=== PATIENT | female | born 1970 | race Caucasian/White ===

== ENCOUNTER → 2021-05-14 14:35 | Outpatient (BNVA) | payer OTHER, SELFPAY | PROVIDERS: PCP Internal Medicine; Referring Provider Internal Medicine; Visit Provider Physician Assistant ==

== ENCOUNTER 2025-07-25 08:15 | Outpatient (AMB) | payer OTHER, SELFPAY ==
--- OUTSIDE RECORDS SUMMARY | 2024-04-05 04:40 | XMS_ITS ---
Author Organization [facility] Address [address] [place] [address] Care Team Providers Care Lehr Operator Name Role Phone ANIL POSEY Primary Care Provider Kathryn Do Unavailable [phone] Allergies Allergen (clinical drug ingredient) Drug/Non Drug [...] 1 ORAL daily; Duration: -3 10/30/2013 Active Miqrvzjmpl-JBSV-Ticlyxpd 50-325-40 MG TAKE 2 TABLETS BY MOUTH [...] Encounters Encounter Location Date Provider Diagnosis Total [address] [facility] [address] [place] [address] 04/05/2024 Kathryn Galo Plan Of Treatment No Information Progress Notes * MARIANNA SNELLDOB:1970 (54 yo F)Acc No.[id number]:04/05/2024 PROGRESS NOTES Patient: MARIANNA ELLIOTT Appointment Provider: Amy Galo M.D. :1970 A ge:53 Y S ex:Female Date:04/05/2024 Address:[address] [place] [address] [address], [facility] Pcp:ANIL POSEY Subjective: * Chief Complaints: * 1 . Annual (YELLOW FORM DONE). * Medical History: E xcessive and frequent menstruation with regular cycle, Gastro-esophageal reflux disease without esophagitis, Essential (primary) hypertension, Migraine, unspecified, not intractable, without status migrainosus, Menopausal and female climacteric states, Leiomyoma of uterus, unspecified, Functional urinary incontinence, Morbid (severe) obesity due to excess calories. 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 S [...] status: . Natural support system: yes. Occupation: [employer]. Sexually active: yes, monogamous relationship. Travel outside of the [place]: no. * Medications: T aking Spironolactone [...] 50MG 60 1 ORAL daily , Taking Mmfqelttrt-YDCW-Optutwcn 50-325-40 MG Tablet TAKE 2 TABLETS BY MOUTH 3 TIMES A DAY NEEDED DO NOT EXCEED 6 TABS DAILY Oral * Allergies: L atex: Allergy, Penicillin: Allergy. Objective: * Vitals: Assessment: Plan: * Treatment: * Images: Billing Information: * Visit Code: * Procedure Codes: * Electronic signature of Gen Galo MD on 07/25/2025 at 08:19 AM EDT Sign off status: Pending * Appointment Provider: Amy Galo M.D. Date: 0 04/05/2024 Generated for Derik tran/Juan David/Antony on: 1 08:19 AM EDT
--- NOTE | 2025-07-25 07:55 | A.OFFPC_ITS ---
Vital Signs 07/25/25 08:17 Height 5 ft 6.5 in Weight 240 lb 8 oz BMI 38.2 BP 102/74 Blood Pressure Location Lt brachial Position Sitting Respiration 16 Pulse 74 Pulse Source Pulse Oximeter Temp 98.1 F Temp Source Oral Pulse Oximetry (%) 94 Oxygen Delivery Method Room Air Intake Visit Reasons: reestablish care, discuss clearance letter Geography Instructor Required: No Accompanied by: Self / Same As Patient Allergies ciprofloxacin (From Cipro) Allergy (Intermediate, Verified 07/25/25 08:18) rash/itching apple Allergy (Mild, Verified 07/25/25 07:55) unknown latex Allergy (Mild, Verified 07/25/25 07:55) unknown nut - unspecified Allergy (Mild, Verified 07/25/25 07:55) unknown orange Allergy (Mild, Verified 07/25/25 07:55) unknown peach Allergy (Mild, Verified 07/25/25 07:55) unknown Penicillins Allergy (Mild, Verified 07/25/25 07:55) unknown pineapple Allergy (Mild, Verified 07/25/25 07:55) unknown Seasonal Allergies Allergy (Mild, Verified 07/25/25 07:55) unknown adhesive tape Adverse Reaction (Intermediate, Verified 07/25/25 07:55) Rash Medication List - Last Reconciled 07/25/25 by Annamarie Feliciano MD albuterol sulfate 90 mcg/actuation (Ventolin HFA) 2 puffs inhalation Q6H PRN bupropion HCl XL (Wellbutrin XL) 150 mg PO QAM CPAP (CPAP Machine/Device) As directed epinephrine (EpiPen) 0.3 mg IM Q10M PRN ferrous gluconate 324 mg PO DAILY hydrochlorothiazide 25 mg PO DAILY lisinopril 10 mg PO DAILY magnesium glycinate mg PO mecobalamin (vitamin B12) 1,000 mcg PO DAILY metoprolol succinate ER 25 mg PO DAILY omeprazole 40 mg PO BID sertraline 200 mg PO DAILY tirzepatide (Mounjaro) 2.5 mg subcut QWEEK trazodone 150 mg PO BEDTIME PRN Tobacco use date assessed: 07/25/25 Dental Screening Dental Screen Date: 07/25/25 Did you have a dental visit in the last 12 months?: Yes Did you have a dental problem in the last 6 months where you did not have access to dental care?: No Was dental information given to patient?: Patient has dentist HPI HPI Comments History of Present Illness Details History of Present Illness The patient is a 54-year-old female presenting to [facility] for a follow- up appointment for Essential Hypertension, ADHD, anxiety, and associated conditions. She experiences work-related stress leading to anxiety. She will be seeing psychiatrist who wants to start vyvanse but wants to ensure her BP is good for her to start medication. The patient?s sleep disturbance has improved with increased Trazodone dosage. She uses magnesium glycinate for leg cramps with improvement noted and reports stress-induced headaches, medicating with an injectable migraine treatment. Family circumstances include a recent marital change and a pending vacation in September have been discussed. Sleep apnea- has not been using CPAP Obesity- has been taking mounjaro, enrolled with a weight management provider. Impaired fasting glucose-due for repeat A1C Migraines- sees specialist in [place], on emgality. B12 deficiency- taking B12 supplements daily GERD-stable on PPI Review of Systems - Cardiovascular: no chest pain - Respiratory: Denies increased need for albuterol. - Neurological: Reports headaches - Musculoskeletal: Reports leg cramps, i mproved with magnesium. - Psychiatric: Reports anxiety, associat ed with work stress. - Sleep: Reports improved sleep with inc reased Trazodone. - General: Reports stress due to work de mands; denies additional symptoms. Physical Exam - Vital Signs- Blood pressure 110/78 mmH g. - Cardiac- Normal heart sounds. Soft mur mur across precordium - Respiratory- Lungs clear on auscultati on. - Gastrointestinal- Normal bowel sounds; no tenderness observed. - Extremities- No swelling in lower extr emities. Assessment and Plan 1. Essential Hypertension Anticipate possible blood pressure elevation due to Vyvanse; monitor home BP readings. Consider dosage adjustment depending on upcoming results and lifestyle influences. 2. ADHD Start Vyvanse as per psychiatrist's plan, ensuring collaboration for seamless adjustment between mental health management and general physical health monitoring. 3. Stress-Induced Anxiety Address work-related stress and personal life adjustments. Evaluate therapy or intervention if the situation exacerbates, ensuring coordination with mental health care providers. 4. Sleep Disturbances and Apnea Reiterate the need for ongoing sleep clinic evaluation, given potential benefits from weight loss. Track sleep patterns and apnea symptoms. Pt will reestablish with sleep provider. Will confirm if [facility] is in network. If yes will refer. 5. Leg Cramps Maintain magnesium supplementation, as it has provided relief. Check magnesium 6. Headaches Review if stress alleviation is ineffective, untreated BLANCA can also be a factor; maintain contact with healthcare providers regarding symptomatic treatment evaluation. Discussion Notes We discussed the daily living and personal impact of Essential Hypertension and ADHD in depth, particularly focusing on how the introduction of Vyvanse could impact her cardiovascular health. The patient understands the need for meticulous blood pressure monitoring at home and the rationale for maintaining current medications while observing changes. We reviewed the implications of stress and reviewed potential coping mechanisms for stress-induced anxiety, especially given the workplace challenges she faces. In addressing her sleep issues, I highlighted the pending evaluation at a sleep clinic to accommodate any progress via weight loss in managing obstructive sleep apnea. Patient Instructions - Monitor your blood pressure at home re niravrly. - Manage stress with recommended strateg ies - Get in touch with the sleep clinic to proceed with your evaluation. - Keep up with magnesium supplementation if your leg cramps are improving. - Check in with your neurologist re head aches - Drink at least 64 ounces of water each day. - Use your patient portal to log any slim nges in your health. - Wear a mask when traveling to protect yourself from illness. - Remember to take breaks as much as pos sible to reduce stress. [facility] Medical History (Updated 07/25/25 @ 09:32 by Annamarie Feliciano MD) B12 deficiency anemia RUQ abdominal pain Leg cramps Anemia GERD (gastroesophageal reflux disease) Migraines Depression ADHD Impaired fasting glucose Obstructive sleep apnea detention (current) use of anticoagulants Pulmonary embolism DVT (deep venous thrombosis) Surgical History (Updated 07/24/25 @ 09:10 by Annamarie Feliciano MD) H/O cystoscopy H/O bilateral salpingectomy H/O total hysterectomy Hx of colonoscopy Family History Mother HTN (hypertension) Diabetes Father HTN (hypertension) Diabetes Social History (Updated 05/15/21 @ 13:27 by Zenobia Agee PA-C) Housing: House Patient Tobacco Use Status: Never used Tobacco e-Cigarette/Vaping Use: Never Used service: No Current occupational status: employed Current occupation: [employer] Medical Records Questionnaire AUDIT C Alcohol Use Questionnaire (AUDIT-C) 1. How often do you have a drink containing alcohol?: Never 3. How often do you have six or more drinks on one occasion?: Never Total Score: 0 Physical exam (Primary Care) Vital Signs: Last Vital Signs Temp 98.1 F 07/25/25 08:17 Pulse 74 07/25/25 08:17 Resp 16 07/25/25 08:17 BP 102/74 07/25/25 08:17 Pulse Ox 94 07/25/25 08:17 Oxygen Delivery Method Room Air 07/25/25 08:17 BMI result Body Mass Index 38.2 Tobacco/Smoking Status: Tobacco use Status Tobacco use date assessed 07/25/25 07/25/25 07:55 Patient Tobacco Use Status Never used Tobacco 07/25/25 07:55 e-Cigarette/Vaping Use Never Used 07/25/25 08:30 Coding Level of Care Code Est Pt Level 4 (13802) Complex EM visit Add On G2211 Diagnoses HTN (hypertension) I10 Impaired fasting glucose R73.01 Anemia D64.9 Migraines G43.909 Obstructive sleep apnea G47.33 Attention deficit hyperactivity disorder (ADHD), unspecified ADHD type F90.9 Attention deficit-hyperactivity disorder type: unspecified Depression F32.A Depression Type: major depressive disorder Major depression episode severity: unspecified Major depression recurrence: unspecified whether recurrent GERD (gastroesophageal reflux disease) K21.9 B12 deficiency anemia D51.9 Assessment & Plan Assessment & Plan (1) HTN (hypertension): Code(s): I10 - Essential (primary) hypertension Category: Medical (2) Impaired fasting glucose: Code(s): R73.01 - Impaired fasting glucose Category: Medical (3) Anemia: Code(s): D64.9 - Anemia, unspecified Category: Medical (4) Migraines: Code(s): G43.909 - Migraine, unspecified, not intractable, without status migrainosus Category: Medical (5) Anemia: Code(s): D64.9 - Anemia, unspecified Category: Medical (6) Obstructive sleep apnea: Code(s): G47.33 - Obstructive sleep apnea (adult) (pediatric) Category: Medical (7) ADHD: Code(s): F90.9 - Attention-deficit hyperactivity disorder, unspecified type Category: Medical Qualifiers: Attention deficit-hyperactivity disorder type: unspecified Qualified Code(s): F90.9 - Attention-deficit hyperactivity disorder, unspecified type (8) Depression: Code(s): F32.A - Depression, unspecified Category: Medical Qualifiers: Depression Type: major depressive disorder Major depression episode severity: unspecified Major depression recurrence: unspecified whether recurrent (9) GERD (gastroesophageal reflux disease): Code(s): K21.9 - Gastro-esophageal reflux disease without esophagitis Category: Medical (10) B12 deficiency anemia: Code(s): D51.9 - Vitamin B12 deficiency anemia, unspecified Category: Medical Plan We will monitor her hypertension closely with Vyvanse initiation, ensuring potential adjustments in response to lifestyle changes influenced by stress and weight loss programs. Vyvanse management will continue under psychiatric care, integrating results with our treatment strategy, and anxiety will be continually evaluated as work conditions and personal circumstances evolve. Sleep disturbances will be revisited once a sleep clinic evaluation is complete, potentially offering advancements parallel to weight loss. Magnesium glycinate seems beneficial for muscle cramps, and we'll ensure continued hydration guidance aligns with her dietary constraints. Orders: Orders Comprehensive Met. Panel Today I10 - Essential (primary) hypertension, R73.01 - Impaired fasting glucose Hemoglobin A1c Today I10 - Essential (primary) hypertension, R73.01 - Impaired fasting glucose IRON PROFILE Today D64.9 - Anemia, unspecified Complete Blood Count Auto Diff Today D64.9 - Anemia, unspecified Microalbumin, Random (w Creat) Today I10 - Essential (primary) hypertension, R73.01 - Impaired fasting glucose Vitamin B12 Today I10 - Essential (primary) hypertension, R73.01 - Impaired fasting glucose Magnesium Today D64.9 - Anemia, unspecified, K21.9 - Gastro-esophageal reflux disease without esophagitis, R25.2 - Cramp and spasm, R73.01 - Impaired fasting glucose
[2025-07-25 08:17] VITALS: BP 102/74; PULSE 74; RESP 16; TEMP 36.7; O2SAT 94; BMI 38.2
--- OUTSIDE RECORDS SUMMARY | 2025-07-25 08:19 | XMS_ITS | Patient Health Record ---
Author Organization [employer] [facility] Address [address] [place] [address] Care Team Providers Care University Demonstrator Name Role Phone ANIL POSEY Primary Care Provider Kathryn Do Unavailable [phone] Allergies Allergen (clinical drug ingredient) Drug/Non Drug Allergy documented on EMR Reaction Allergy Type Onset Date Status Latex Latex Unknown Allergy Active Penicillin Unknown Drug Allergy Active Reason For Referral No Information Medications Medication SIG (Take, Route, Frequency, Duration) Notes Start Date End Date Status Metoprolol Tartrate 25MG 1 ORAL daily; Duration: -3 10/30/2013 Active Omeprazole 40MG 1 ORAL twice a day 10/30/2013 Active hydroCHLOROthiazide 25mg 1 ORAL daily; Duration: -3 10/30/2013 Active Vitamin B12 1000 MCG 1 tablet Orally Onc e a day Active metFORMIN HCl 500 MG 1 tablet with a angel l Orally twice a day Active Sertraline HCl 50 MG 1 tablet Orally Onc e a day; Duration: 30 day(s) Active Vitamin D Active Flax Seed Oil 1000 MG as directed Orally Active Cetirizine HCl 10 MG TAKE 1 TABLET BY MOUTH EVERY DAY Oral; Duration: 30 Active Spironolactone 25 MG 1 tablet Orally; Duration: 30 day(s) Active Topiramate 50MG 1 ORAL daily; Duration: -3 10/30/2013 Active traZODone HCl 50 MG 1 tablet at bedtime as needed Orally Once a day; Duration: 30 day(s) Active Fokuamclbl-THFP-Uvylmaen 50-325-40 MG TAKE 2 TABLETS BY MOUTH 3 TIMES A DAY NEEDED DO NOT EXCEED 6 TABS DAILY Oral; Duration: 4 Active Social History Sexual History Question Answer Notes Had sex in the past 12 months (vaginal, oral, or anal)? Yes with Men only Use protection? Yes How often? All of the time Have you ever had a Sexually transmitted disease ? No Problems Problem Type SNOMED Code ICD Code Onset Dates Problem Status W/U Status Risk Notes Problem Excessive and frequent menstruation (930354485) Excessive and frequent menstruation with regular cycle (N92.0) Active confirmed Problem Urinary incontinence (770561557) Unspecified urinary incontinence (R32) Active confirmed Problem Dysuria (60080662) Dysuria (R30.0) Active confirmed Problem Morbid obesity (disorder) (257583602) Morbid (severe) obesity due to excess calories (E66.01) Active confirmed Problem Functional urinary incontinence (769760736) Functional urinary incontinence (R39.81) Active confirmed Problem Menopause (536889688) Menopausal and female climacteric states (N95.1) Active confirmed Problem Migraine (disorder) (08127951) Migraine, unspecified without mention of intractable migraine without mention of status migrainosus (346.90) Active confirmed Major Problem Benign essential hypertension (7028783) Essential hypertension, benign (401.1) Active confirmed Major Problem Esophageal reflux (298217301) Esophageal reflux (530.81) Active confirmed Major Problem Excessive and frequent menstruation (163420272) Excessive or frequent menstruation (626.2) Active confirmed Diag Problem Gynecological examination normal (313499085457463) Routine gynecological examination (V72.31) Active confirmed Problem Contraception care education (995308770) Other general counseling and advice for contraceptive management (V25.09) Active confirmed Diag Problem Insertion of intrauterine contraceptive device (61661164) Insertion of intrauterine contraceptive device (V25.1) Active confirmed Major Plan Of Treatment Pending Test Test Name Order Date Test, Urine 10/30/2020 Urinalysis 10/30/2020 Urinalysis 12/23/2020 Urinalysis 12/18/2021 MM Digital Mammo Screening 12/22/2022 MM Digital Mammo Screening 12/18/2021 MM Digital Mammo Screening 10/30/2020 PELVIC ULTRASOUND W/TRANSVAGINAL 021 PELVIC ULTRASOUND W/TRANSVAGINAL 021 Insurance Providers Payer Name Payer Address Payer Phone Subscriber Number Group Number Insured Name Patient Relationship to Insured Coverage Start Date Coverage End Date [facility] [address] [facility] [place] [id number] MARIANNA SNELL Self - patient is the insured Medications Administered Medication Instructions Date of Administration Dosage Notes DEPO PROVERA 03/19/2021 150 mg Medroxyprogesterone 12/23/2020 150 mg Medical (General) History Medical History History ICD Code Excessive and frequent menstruation with regular cycle N92.0 Gastro-esophageal reflux disease without esophagitis K21.9 Essential (primary) hypertension I10 Migraine, unspecified, not intractable, without status migrainosus G43.909 Menopausal and female climacteric states N95.1 Leiomyoma of uterus, unspecified D25.9 Functional urinary incontinence R39.81 Morbid (severe) obesity due to excess ca lories E66.01 Surgical History Surgery Date(Month/Year) TAB RAMYA 02/17/21 Hospitalization History Reason Date(Month/Year) See Surgical Hx
--- OUTSIDE RECORDS SUMMARY | 2025-07-25 08:19 | XMS_ITS | Patient Health Record ---
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 Role Phone Dr Enoc Primary Care Provider CAMILO Navarrete Unavailable [phone] Allergies Allergen (clinical drug ingredient) Drug/Non Drug Allergy documented on EMR Reaction Allergy Type Onset Date Status ciprofloxacin Ciprofloxacin rash Drug Allergy Active Latex Latex rash Allergy Active Penicillin rash Drug Allergy Active Reason For Referral No Information Medications Medication SIG (Take, Route, Frequency, Duration) Notes Start Date End Date Status Omeprazole 40 MG Oral; Duration: 90 Days Active Mounjaro 2.5 MG/0.5ML Inject 2.5mg Subcutaneous once weekly; Duration: 30 days 07/03/2025 Active traZODone HCl 150 MG TAKE 1 TABLET BY MO [facility] EVERYDAY AT BEDTIME Oral; Duration: 90 Days Active buPROPion HCl ER (XL) 150 MG TAKE 1 TABL ET BY MOUTH EVERY DAY Oral; Duration: 30 Days Active Ebqemgbpar-JSSE-Elmhvlbo 50-325-40 MG TAKE 1 TABLET BY MOUTH EVERY 4 HOURS NEEDED FOR PAIN Oral; Duration: 3 Days Active Ferrous Gluconate 324 (38 Fe ) MG TAKE 1 TABLET BY MOUTH EVERY DAY Oral; Duration: 30 Days Active Fluticasone Propionate 50 MCG/ACT SPRAY 2 SPRAYS INTO EACH NOSTRIL EVERY DAY Nasal; Duration: 90 Days Active Sertraline HCl 100 MG TAKE 2 TABLETS BY MOUTH EVERY DAY Oral; Duration: 90 Days Active Lisinopril 10 MG Oral; Duration: 90 Days Active Emgality 120 MG/ML Subcutaneous; Duration: 90 Days Active Metoprolol Succinate ER 25 MG Oral; Dura tion: 90 Days Active hydroCHLOROthiazide 25 MG Oral; Duration : 90 Days Active Problems Problem Type SNOMED Code ICD Code Onset Dates Problem Status W/U Status Risk Notes Problem Essential hypertensi on (21733645) Essential hypertension (I10) Active confirmed Problem Morbid obesity (343221376) Morbid obesity (E66.01) Active confirmed Problem Body mass index 40+ - morbidly obese (619600731) BMI 40.0-44.9, adult (Z68.41) Active confirmed Problem hypercholesterolemia (disorder) (40658853) Hypercholesteremia (E78.00) Active confirmed Problem Mixed anxiety and depressive disorder (470514757) Depression with anxiety (F41.8) Active confirmed Problem Hemoglobin A1c above reference range (564446779) Elevated hemoglobin A1c (R73.09) Active confirmed Problem Obstructive sleep apnea syndrome (79817374) BLANCA on CPAP (G47.33) Active confirmed Problem Episodic migraine (288573506737641) Episodic migraine (G43.909) Active confirmed Vital Signs Heart Rate 74 /min 07/03/2025 Oximetry 97 % 07/03/2025 Blood pressure diastolic 86 mm Hg 07/03/2025 Height 64 in 07/03/2025 Blood pressure systolic 138 mm Hg 07/03/2025 Weight 245.5 lbs 07/03/2025 BMI 42.14 kg/m2 07/03/2025 Encounters Encounter Location Date Provider Diagnosis [facility] [address] [facility] [address] [place] [address] 07/03/2025 CAMILO BRANNON Morbid obesity E66.0 1 ; BMI 40.0-44.9, adult Z68.41 ; Elevated hemoglobin A1c R73.09 ; Essential hypertension I10 ; Hypercholesteremia E78.00 ; BLANCA on CPAP G47.33 ; Episodic migraine G43.909 ; History of gastroesophageal reflux (GERD) Z87.19 ; Depression with anxiety F41.8 and Nutritional counseling Z71.3 [facility] [address] [facility] [address] [place] [address] 07/03/2025 CAMILO BRANNON Elevated hemoglobin A1c R73.09 and BLANCA on CPAP G47.33 Assessments Encounter Date Diagnosis (ICD Code) Assessment Notes Treatment Notes Treatment Clinical Notes Section Notes 07/03/2025 Morbid obesity (ICD-10 - E66.01) Ruth is a 54-year-old female with a PMH of HTN, HLD, A1c 6.4%, BLANCA requiring CPAP, migraines, GERD, anxiety/depression that presents for weight management consult.Patient was reassured and welcomed to the practice. Discussed [facility] holistic and medical approach to weight loss with emphasis on lifestyle modification. Patient is educated that a healthy lifestyle aids in combating obesity as well as reducing the risk of developing obesity-related medical complications including but not limited to diabetes and cardiovascular disease. Detailed education provided about taking steps to initiate sustainable lifestyle changes including incorporating regular physical activity, making healthy diet choices, and prioritizing mental health. Information provided about literature including The Food Rules by Ezequiel España and Eat Fat Get Lean by Dr Kelvin Taylor. Handouts including lifestyle checklist, protein content of food, low calorie snacks, and cholesterol information sheet provided. Diagnostic testing/ SECA scale offered. Discussed the importance of regular SECA scale measurements to ensure healthy weight loss. 07/03/2025: Weight: 245.5, BMI: 42. Reviewed SECA/goals for implementing sustainable lifestyle changes. Patient is encouraged to increase physical activity, goal 8-10k steps/day. Also discussed the importance of strength training with proper safety/body mechanics for maintenance of muscle mass/bone health. Patient encouraged to drink 60-80oz water/day. Reviewed nutrition, recommending food diary x 1 week to ensure adequate caloric/protein intake. Goal of 80-100g protein/day. Reviewed risks, benefits, and side effects of weight management medications including phentermine, Topamax, Contrave, metformin, and GLP-1 agonist. Patient interested in GLP-1/GIP agonist Mounjaro denies personal/family history of medullary thyroid cancer/MEN syndrome. Rx for Mounjaro 2.5 mg SC weekly sent to pharmacy. Reviewed proper use, administration, and expectations for PA process/insurance coverage. After consultation and careful review of medical history, this patient would benefit from Zepbound based off of the following criteria met: Patient is over the age of 18 with a BMI of 42. Additional comorbidities include HTN, HLD, BLANCA requiring CPAP, A1c of 6.4%. Patient has trialed other methods of weight loss including improving diet and exercise, wellbutrin, metformin, psychotherapy , bariatric surgery without success.This medication is prescribed by or in consultation with a board-certified obesity and weight management physician (Dr. Carlee Epstein or Dr. Sakina Epstein). All questions answered to the patients satisfaction. Patient demonstrates understanding of diagnosis and treatments discussed. Follow-up at next scheduled appointment, sooner should any questions/concerns arise. Case discussed with collaborating physician Lisa Epstein who has reviewed the assessment/plan. Chart, medications, labs, and vital signs reviewed. Dictation completed with the use of [employer] voice recognition software, prone to medical misidentifications and grammatical errors. All errors are unintentional. Although the practitioner does try to identify and correct errors, some may be present. Please do not hesitate to contact the practitioner for clarification. Total time was 60 minutes spent with greater than 50% on coordination of care and patient education. 07/03/2025 BMI 40.0-44.9, adult (ICD-10 - Z68.41) Hope is a 54-year-old female with a PMH of HTN, HLD, A1c 6.4%, BLANCA requiring CPAP, migraines, GERD, anxiety/depression that presents for weight management consult.Patient was reassured and welcomed to the practice. Discussed [facility] holistic and medical approach to weight loss with emphasis on lifestyle modification. Patient is educated that a healthy lifestyle aids in combating obesity as well as reducing the risk of developing obesity-related medical complications including but not limited to diabetes and cardiovascular disease. Detailed education provided about taking steps to initiate sustainable lifestyle changes including incorporating regular physical activity, making healthy diet choices, and prioritizing mental health. Information provided about literature including The Food Rules by Ezequiel España and Eat Fat Get Lean by Dr Kelvin Taylor. Handouts including lifestyle checklist, protein content of food, low calorie snacks, and cholesterol information sheet provided. Diagnostic testing/ SECA scale offered. Discussed the importance of regular SECA scale measurements to ensure healthy weight loss. 07/03/2025: Weight: 245.5, BMI: 42. Reviewed SECA/goals for implementing sustainable lifestyle changes. Patient is encouraged to increase physical activity, goal 8-10k steps/day. Also discussed the importance of strength training with proper safety/body mechanics for maintenance of muscle mass/bone health. Patient encouraged to drink 60-80oz water/day. Reviewed nutrition, recommending food diary x 1 week to ensure adequate caloric/protein intake. Goal of 80-100g protein/day. Reviewed risks, benefits, and side effects of weight management medications including phentermine, Topamax, Contrave, metformin, and GLP-1 agonist. Patient interested in GLP-1/GIP agonist Mounjaro denies personal/family history of medullary thyroid cancer/MEN syndrome. Rx for Mounjaro 2.5 mg SC weekly sent to pharmacy. Reviewed proper use, administration, and expectations for PA process/insurance coverage. After consultation and careful review of medical history, this patient would benefit from Zepbound based off of the following criteria met: Patient is over the age of 18 with a BMI of 42. Additional comorbidities include HTN, HLD, BLANCA requiring CPAP, A1c of 6.4%. Patient has trialed other methods of weight loss including improving diet and exercise, wellbutrin, metformin, psychotherapy , bariatric surgery without success.This medication is prescribed by or in consultation with a board-certified obesity and weight management physician (Dr. Carlee Epstein or Dr. Sakina Epstein). All questions answered to the patients satisfaction. Patient demonstrates understanding of diagnosis and treatments discussed. Follow-up at next scheduled appointment, sooner should any questions/concerns arise. Case discussed with collaborating physician Lisa Epstein who has reviewed the assessment/plan. Chart, medications, labs, and vital signs reviewed. Dictation completed with the use of [employer] voice recognition software, prone to medical misidentifications and grammatical errors. All errors are unintentional. Although the practitioner does try to identify and correct errors, some may be present. Please do not hesitate to contact the practitioner for clarification. Total time was 60 minutes spent with greater than 50% on coordination of care and patient education. 07/03/2025 Elevated hemoglobin A1c (ICD-10 - R73.09) Hope is a 54-year-old female with a PMH of HTN, HLD, A1c 6.4%, BLANCA requiring CPAP, migraines, GERD, anxiety/depression that presents for weight management consult.Patient was reassured and welcomed to the practice. Discussed [facility] holistic and medical approach to weight loss with emphasis on lifestyle modification. Patient is educated that a healthy lifestyle aids in combating obesity as well as reducing the risk of developing obesity-related medical complications including but not limited to diabetes and cardiovascular disease. Detailed education provided about taking steps to initiate sustainable lifestyle changes including incorporating regular physical activity, making healthy diet choices, and prioritizing mental health. Information provided about literature including The Food Rules by Ezequiel España and Eat Fat Get Lean by Dr Kelvin Taylor. Handouts including lifestyle checklist, protein content of food, low calorie snacks, and cholesterol information sheet provided. Diagnostic testing/ SECA scale offered. Discussed the importance of regular SECA scale measurements to ensure healthy weight loss. 07/03/2025: Weight: 245.5, BMI: 42. Reviewed SECA/goals for implementing sustainable lifestyle changes. Patient is encouraged to increase physical activity, goal 8-10k steps/day. Also discussed the importance of strength training with proper safety/body mechanics for maintenance of muscle mass/bone health. Patient encouraged to drink 60-80oz water/day. Reviewed nutrition, recommending food diary x 1 week to ensure adequate caloric/protein intake. Goal of 80-100g protein/day. Reviewed risks, benefits, and side effects of weight management medications including phentermine, Topamax, Contrave, metformin, and GLP-1 agonist. Patient interested in GLP-1/GIP agonist Mounjaro denies personal/family history of medullary thyroid cancer/MEN syndrome. Rx for Mounjaro 2.5 mg SC weekly sent to pharmacy. Reviewed proper use, administration, and expectations for PA process/insurance coverage. After consultation and careful review of medical history, this patient would benefit from Zepbound based off of the following criteria met: Patient is over the age of 18 with a BMI of 42. Additional comorbidities include HTN, HLD, BLANCA requiring CPAP, A1c of 6.4%. Patient has trialed other methods of weight loss including improving diet and exercise, wellbutrin, metformin, psychotherapy , bariatric surgery without success.This medication is prescribed by or in consultation with a board-certified obesity and weight management physician (Dr. Carlee Epstein or Dr. Sakina Epstein). All questions answered to the patients satisfaction. Patient demonstrates understanding of diagnosis and treatments discussed. Follow-up at next scheduled appointment, sooner should any questions/concerns arise. Case discussed with collaborating physician Lisa Epstein who has reviewed the assessment/plan. Chart, medications, labs, and vital signs reviewed. Dictation completed with the use of [employer] voice recognition software, prone to medical misidentifications and grammatical errors. All errors are unintentional. Although the practitioner does try to identify and correct errors, some may be present. Please do not hesitate to contact the practitioner for clarification. Total time was 60 minutes spent with greater than 50% on coordination of care and patient education. 07/03/2025 Elevated hemoglobin A1c (ICD-10 - R73.09) Electronic Prior Authorization was requested for Mounjaro 2.5 MG/0.5ML Solution Auto-injector. Provider can order medication once approval received. 07/03/2025 BLANCA on CPAP (ICD-10 - G47.33) Electronic Prior Authorization was requested for Zepbound 2.5 MG/0.5ML Solution Auto-injector. Provider can order medication once approval received. 07/03/2025 Essential hypertension (ICD-10 - I10) Ruth is a 54-year-old female with a PMH of HTN, HLD, A1c 6.4%, BLANCA requiring CPAP, migraines, GERD, anxiety/depression that presents for weight management consult.Patient was reassured and welcomed to the practice. Discussed [facility] holistic and medical approach to weight loss with emphasis on lifestyle modification. Patient is educated that a healthy lifestyle aids in combating obesity as well as reducing the risk of developing obesity-related medical complications including but not limited to diabetes and cardiovascular disease. Detailed education provided about taking steps to initiate sustainable lifestyle changes including incorporating regular physical activity, making healthy diet choices, and prioritizing mental health. Information provided about literature including The Food Rules by Ezequiel España and Eat Fat Get Lean by Dr Kelvin Taylor. Handouts including lifestyle checklist, protein content of food, low calorie snacks, and cholesterol information sheet provided. Diagnostic testing/ SECA scale offered. Discussed the importance of regular SECA scale measurements to ensure healthy weight loss. 07/03/2025: Weight: 245.5, BMI: 42. Reviewed SECA/goals for implementing sustainable lifestyle changes. Patient is encouraged to increase physical activity, goal 8-10k steps/day. Also discussed the importance of strength training with proper safety/body mechanics for maintenance of muscle mass/bone health. Patient encouraged to drink 60-80oz water/day. Reviewed nutrition, recommending food diary x 1 week to ensure adequate caloric/protein intake. Goal of 80-100g protein/day. Reviewed risks, benefits, and side effects of weight management medications including phentermine, Topamax, Contrave, metformin, and GLP-1 agonist. Patient interested in GLP-1/GIP agonist Mounjaro denies personal/family history of medullary thyroid cancer/MEN syndrome. Rx for Mounjaro 2.5 mg SC weekly sent to pharmacy. Reviewed proper use, administration, and expectations for PA process/insurance coverage. After consultation and careful review of medical history, this patient would benefit from Zepbound based off of the following criteria met: Patient is over the age of 18 with a BMI of 42. Additional comorbidities include HTN, HLD, BLANCA requiring CPAP, A1c of 6.4%. Patient has trialed other methods of weight loss including improving diet and exercise, wellbutrin, metformin, psychotherapy , bariatric surgery without success.This medication is prescribed by or in consultation with a board-certified obesity and weight management physician (Dr. Carlee Epstein or Dr. Sakina Epstein). All questions answered to the patients satisfaction. Patient demonstrates understanding of diagnosis and treatments discussed. Follow-up at next scheduled appointment, sooner should any questions/concerns arise. Case discussed with collaborating physician Lisa Epstein who has reviewed the assessment/plan. Chart, medications, labs, and vital signs reviewed. Dictation completed with the use of [employer] voice recognition software, prone to medical misidentifications and grammatical errors. All errors are unintentional. Although the practitioner does try to identify and correct errors, some may be present. Please do not hesitate to contact the practitioner for clarification. Total time was 60 minutes spent with greater than 50% on coordination of care and patient education. 07/03/2025 Hypercholesteremia (ICD-10 - E78.00) Hope is a 54-year-old female with a PMH of HTN, HLD, A1c 6.4%, BLANCA requiring CPAP, migraines, GERD, anxiety/depression that presents for weight management consult.Patient was reassured and welcomed to the practice. Discussed [facility] holistic and medical approach to weight loss with emphasis on lifestyle modification. Patient is educated that a healthy lifestyle aids in combating obesity as well as reducing the risk of developing obesity-related medical complications including but not limited to diabetes and cardiovascular disease. Detailed education provided about taking steps to initiate sustainable lifestyle changes including incorporating regular physical activity, making healthy diet choices, and prioritizing mental health. Information provided about literature including The Food Rules by Ezequiel España and Eat Fat Get Lean by Dr Kelvin Taylor. Handouts including lifestyle checklist, protein content of food, low calorie snacks, and cholesterol information sheet provided. Diagnostic testing/ SECA scale offered. Discussed the importance of regular SECA scale measurements to ensure healthy weight loss. 07/03/2025: Weight: 245.5, BMI: 42. Reviewed SECA/goals for implementing sustainable lifestyle changes. Patient is encouraged to increase physical activity, goal 8-10k steps/day. Also discussed the importance of strength training with proper safety/body mechanics for maintenance of muscle mass/bone health. Patient encouraged to drink 60-80oz water/day. Reviewed nutrition, recommending food diary x 1 week to ensure adequate caloric/protein intake. Goal of 80-100g protein/day. Reviewed risks, benefits, and side effects of weight management medications including phentermine, Topamax, Contrave, metformin, and GLP-1 agonist. Patient interested in GLP-1/GIP agonist Mounjaro denies personal/family history of medullary thyroid cancer/MEN syndrome. Rx for Mounjaro 2.5 mg SC weekly sent to pharmacy. Reviewed proper use, administration, and expectations for PA process/insurance coverage. After consultation and careful review of medical history, this patient would benefit from Zepbound based off of the following criteria met: Patient is over the age of 18 with a BMI of 42. Additional comorbidities include HTN, HLD, BLANCA requiring CPAP, A1c of 6.4%. Patient has trialed other methods of weight loss including improving diet and exercise, wellbutrin, metformin, psychotherapy , bariatric surgery without success.This medication is prescribed by or in consultation with a board-certified obesity and weight management physician (Dr. Carlee Epstein or Dr. Sakina Epstein). All questions answered to the patients satisfaction. Patient demonstrates understanding of diagnosis and treatments discussed. Follow-up at next scheduled appointment, sooner should any questions/concerns arise. Case discussed with collaborating physician Lisa Epstein who has reviewed the assessment/plan. Chart, medications, labs, and vital signs reviewed. Dictation completed with the use of [employer] voice recognition software, prone to medical misidentifications and grammatical errors. All errors are unintentional. Although the practitioner does try to identify and correct errors, some may be present. Please do not hesitate to contact the practitioner for clarification. Total time was 60 minutes spent with greater than 50% on coordination of care and patient education. 07/03/2025 BLANCA on CPAP (ICD-10 - G47.33) Ruth is a 54-year-old female with a PMH of HTN, HLD, A1c 6.4%, BLANCA requiring CPAP, migraines, GERD, anxiety/depression that presents for weight management consult.Patient was reassured and welcomed to the practice. Discussed [facility] holistic and medical approach to weight loss with emphasis on lifestyle modification. Patient is educated that a healthy lifestyle aids in combating obesity as well as reducing the risk of developing obesity-related medical complications including but not limited to diabetes and cardiovascular disease. Detailed education provided about taking steps to initiate sustainable lifestyle changes including incorporating regular physical activity, making healthy diet choices, and prioritizing mental health. Information provided about literature including The Food Rules by Ezequiel España and Eat Fat Get Lean by Dr Kelvin Taylor. Handouts including lifestyle checklist, protein content of food, low calorie snacks, and cholesterol information sheet provided. Diagnostic testing/ SECA scale offered. Discussed the importance of regular SECA scale measurements to ensure healthy weight loss. 07/03/2025: Weight: 245.5, BMI: 42. Reviewed SECA/goals for implementing sustainable lifestyle changes. Patient is encouraged to increase physical activity, goal 8-10k steps/day. Also discussed the importance of strength training with proper safety/body mechanics for maintenance of muscle mass/bone health. Patient encouraged to drink 60-80oz water/day. Reviewed nutrition, recommending food diary x 1 week to ensure adequate caloric/protein intake. Goal of 80-100g protein/day. Reviewed risks, benefits, and side effects of weight management medications including phentermine, Topamax, Contrave, metformin, and GLP-1 agonist. Patient interested in GLP-1/GIP agonist Mounjaro denies personal/family history of medullary thyroid cancer/MEN syndrome. Rx for Mounjaro 2.5 mg SC weekly sent to pharmacy. Reviewed proper use, administration, and expectations for PA process/insurance coverage. After consultation and careful review of medical history, this patient would benefit from Zepbound based off of the following criteria met: Patient is over the age of 18 with a BMI of 42. Additional comorbidities include HTN, HLD, BLANCA requiring CPAP, A1c of 6.4%. Patient has trialed other methods of weight loss including improving diet and exercise, wellbutrin, metformin, psychotherapy , bariatric surgery without success.This medication is prescribed by or in consultation with a board-certified obesity and weight management physician (Dr. Carlee Epstein or Dr. Sakina Epstein). All questions answered to the patients satisfaction. Patient demonstrates understanding of diagnosis and treatments discussed. Follow-up at next scheduled appointment, sooner should any questions/concerns arise. Case discussed with collaborating physician Lisa Epstein who has reviewed the assessment/plan. Chart, medications, labs, and vital signs reviewed. Dictation completed with the use of [employer] voice recognition software, prone to medical misidentifications and grammatical errors. All errors are unintentional. Although the practitioner does try to identify and correct errors, some may be present. Please do not hesitate to contact the practitioner for clarification. Total time was 60 minutes spent with greater than 50% on coordination of care and patient education. 07/03/2025 Episodic migraine (ICD-10 - G43.909) Hope is a 54-year-old female with a PMH of HTN, HLD, A1c 6.4%, BLANCA requiring CPAP, migraines, GERD, anxiety/depression that presents for weight management consult.Patient was reassured and welcomed to the practice. Discussed [facility] holistic and medical approach to weight loss with emphasis on lifestyle modification. Patient is educated that a healthy lifestyle aids in combating obesity as well as reducing the risk of developing obesity-related medical complications including but not limited to diabetes and cardiovascular disease. Detailed education provided about taking steps to initiate sustainable lifestyle changes including incorporating regular physical activity, making healthy diet choices, and prioritizing mental health. Information provided about literature including The Food Rules by Ezequiel España and Eat Fat Get Lean by Dr Kelvin Taylor. Handouts including lifestyle checklist, protein content of food, low calorie snacks, and cholesterol information sheet provided. Diagnostic testing/ SECA scale offered. Discussed the importance of regular SECA scale measurements to ensure healthy weight loss. 07/03/2025: Weight: 245.5, BMI: 42. Reviewed SECA/goals for implementing sustainable lifestyle changes. Patient is encouraged to increase physical activity, goal 8-10k steps/day. Also discussed the importance of strength training with proper safety/body mechanics for maintenance of muscle mass/bone health. Patient encouraged to drink 60-80oz water/day. Reviewed nutrition, recommending food diary x 1 week to ensure adequate caloric/protein intake. Goal of 80-100g protein/day. Reviewed risks, benefits, and side effects of weight management medications including phentermine, Topamax, Contrave, metformin, and GLP-1 agonist. Patient interested in GLP-1/GIP agonist Mounjaro denies personal/family history of medullary thyroid cancer/MEN syndrome. Rx for Mounjaro 2.5 mg SC weekly sent to pharmacy. Reviewed proper use, administration, and expectations for PA process/insurance coverage. After consultation and careful review of medical history, this patient would benefit from Zepbound based off of the following criteria met: Patient is over the age of 18 with a BMI of 42. Additional comorbidities include HTN, HLD, BLANCA requiring CPAP, A1c of 6.4%. Patient has trialed other methods of weight loss including improving diet and exercise, wellbutrin, metformin, psychotherapy , bariatric surgery without success.This medication is prescribed by or in consultation with a board-certified obesity and weight management physician (Dr. Carlee Epstein or Dr. Sakina Epstein). All questions answered to the patients satisfaction. Patient demonstrates understanding of diagnosis and treatments discussed. Follow-up at next scheduled appointment, sooner should any questions/concerns arise. Case discussed with collaborating physician Lisa Epstein who has reviewed the assessment/plan. Chart, medications, labs, and vital signs reviewed. Dictation completed with the use of [employer] voice recognition software, prone to medical misidentifications and grammatical errors. All errors are unintentional. Although the practitioner does try to identify and correct errors, some may be present. Please do not hesitate to contact the practitioner for clarification. Total time was 60 minutes spent with greater than 50% on coordination of care and patient education. 07/03/2025 History of gastroesophageal reflux (GERD) (ICD-10 - Z87.19) Hope is a 54-year-old female with a PMH of HTN, HLD, A1c 6.4%, BALNCA requiring CPAP, migraines, GERD, anxiety/depression that presents for weight management consult.Patient was reassured and welcomed to the practice. Discussed [facility] holistic and medical approach to weight loss with emphasis on lifestyle modification. Patient is educated that a healthy lifestyle aids in combating obesity as well as reducing the risk of developing obesity-related medical complications including but not limited to diabetes and cardiovascular disease. Detailed education provided about taking steps to initiate sustainable lifestyle changes including incorporating regular physical activity, making healthy diet choices, and prioritizing mental health. Information provided about literature including The Food Rules by Ezequiel España and Eat Fat Get Lean by Dr Kelvin Taylor. Handouts including lifestyle checklist, protein content of food, low calorie snacks, and cholesterol information sheet provided. Diagnostic testing/ SECA scale offered. Discussed the importance of regular SECA scale measurements to ensure healthy weight loss. 07/03/2025: Weight: 245.5, BMI: 42. Reviewed SECA/goals for implementing sustainable lifestyle changes. Patient is encouraged to increase physical activity, goal 8-10k steps/day. Also discussed the importance of strength training with proper safety/body mechanics for maintenance of muscle mass/bone health. Patient encouraged to drink 60-80oz water/day. Reviewed nutrition, recommending food diary x 1 week to ensure adequate caloric/protein intake. Goal of 80-100g protein/day. Reviewed risks, benefits, and side effects of weight management medications including phentermine, Topamax, Contrave, metformin, and GLP-1 agonist. Patient interested in GLP-1/GIP agonist Mounjaro denies personal/family history of medullary thyroid cancer/MEN syndrome. Rx for Mounjaro 2.5 mg SC weekly sent to pharmacy. Reviewed proper use, administration, and expectations for PA process/insurance coverage. After consultation and careful review of medical history, this patient would benefit from Zepbound based off of the following criteria met: Patient is over the age of 18 with a BMI of 42. Additional comorbidities include HTN, HLD, BLANCA requiring CPAP, A1c of 6.4%. Patient has trialed other methods of weight loss including improving diet and exercise, wellbutrin, metformin, psychotherapy , bariatric surgery without success.This medication is prescribed by or in consultation with a board-certified obesity and weight management physician (Dr. Carlee Epstein or Dr. Sakina Epstein). All questions answered to the patients satisfaction. Patient demonstrates understanding of diagnosis and treatments discussed. Follow-up at next scheduled appointment, sooner should any questions/concerns arise. Case discussed with collaborating physician Lisa Epstein who has reviewed the assessment/plan. Chart, medications, labs, and vital signs reviewed. Dictation completed with the use of [employer] voice recognition software, prone to medical misidentifications and grammatical errors. All errors are unintentional. Although the practitioner does try to identify and correct errors, some may be present. Please do not hesitate to contact the practitioner for clarification. Total time was 60 minutes spent with greater than 50% on coordination of care and patient education. 07/03/2025 Depression with anxiety (ICD-10 - F41.8) Hope is a 54-year-old female with a PMH of HTN, HLD, A1c 6.4%, BLANCA requiring CPAP, migraines, GERD, anxiety/depression that presents for weight management consult.Patient was reassured and welcomed to the practice. Discussed [facility] holistic and medical approach to weight loss with emphasis on lifestyle modification. Patient is educated that a healthy lifestyle aids in combating obesity as well as reducing the risk of developing obesity-related medical complications including but not limited to diabetes and cardiovascular disease. Detailed education provided about taking steps to initiate sustainable lifestyle changes including incorporating regular physical activity, making healthy diet choices, and prioritizing mental health. Information provided about literature including The Food Rules by Ezequiel España and Eat Fat Get Lean by Dr Kelvin Taylor. Handouts including lifestyle checklist, protein content of food, low calorie snacks, and cholesterol information sheet provided. Diagnostic testing/ SECA scale offered. Discussed the importance of regular SECA scale measurements to ensure healthy weight loss. 07/03/2025: Weight: 245.5, BMI: 42. Reviewed SECA/goals for implementing sustainable lifestyle changes. Patient is encouraged to increase physical activity, goal 8-10k steps/day. Also discussed the importance of strength training with proper safety/body mechanics for maintenance of muscle mass/bone health. Patient encouraged to drink 60-80oz water/day. Reviewed nutrition, recommending food diary x 1 week to ensure adequate caloric/protein intake. Goal of 80-100g protein/day. Reviewed risks, benefits, and side effects of weight management medications including phentermine, Topamax, Contrave, metformin, and GLP-1 agonist. Patient interested in GLP-1/GIP agonist Mounjaro denies personal/family history of medullary thyroid cancer/MEN syndrome. Rx for Mounjaro 2.5 mg SC weekly sent to pharmacy. Reviewed proper use, administration, and expectations for PA process/insurance coverage. After consultation and careful review of medical history, this patient would benefit from Zepbound based off of the following criteria met: Patient is over the age of 18 with a BMI of 42. Additional comorbidities include HTN, HLD, BLANCA requiring CPAP, A1c of 6.4%. Patient has trialed other methods of weight loss including improving diet and exercise, wellbutrin, metformin, psychotherapy , bariatric surgery without success.This medication is prescribed by or in consultation with a board-certified obesity and weight management physician (Dr. Carlee Epstein or Dr. Sakina Epstein). All questions answered to the patients satisfaction. Patient demonstrates understanding of diagnosis and treatments discussed. Follow-up at next scheduled appointment, sooner should any questions/concerns arise. Case discussed with collaborating physician Lisa Epstein who has reviewed the assessment/plan. Chart, medications, labs, and vital signs reviewed. Dictation completed with the use of [employer] voice recognition software, prone to medical misidentifications and grammatical errors. All errors are unintentional. Although the practitioner does try to identify and correct errors, some may be present. Please do not hesitate to contact the practitioner for clarification. Total time was 60 minutes spent with greater than 50% on coordination of care and patient education. 07/03/2025 Nutritional counseling (ICD-10 - Z71.3) Hope is a 54-year-old female with a PMH of HTN, HLD, A1c 6.4%, BLANCA requiring CPAP, migraines, GERD, anxiety/depression that presents for weight management consult.Patient was reassured and welcomed to the practice. Discussed [facility] holistic and medical approach to weight loss with emphasis on lifestyle modification. Patient is educated that a healthy lifestyle aids in combating obesity as well as reducing the risk of developing obesity-related medical complications including but not limited to diabetes and cardiovascular disease. Detailed education provided about taking steps to initiate sustainable lifestyle changes including incorporating regular physical activity, making healthy diet choices, and prioritizing mental health. Information provided about literature including The Food Rules by Ezequiel España and Eat Fat Get Lean by Dr Kelvin Taylor. Handouts including lifestyle checklist, protein content of food, low calorie snacks, and cholesterol information sheet provided. Diagnostic testing/ SECA scale offered. Discussed the importance of regular SECA scale measurements to ensure healthy weight loss. 07/03/2025: Weight: 245.5, BMI: 42. Reviewed SECA/goals for implementing sustainable lifestyle changes. Patient is encouraged to increase physical activity, goal 8-10k steps/day. Also discussed the importance of strength training with proper safety/body mechanics for maintenance of muscle mass/bone health. Patient encouraged to drink 60-80oz water/day. Reviewed nutrition, recommending food diary x 1 week to ensure adequate caloric/protein intake. Goal of 80-100g protein/day. Reviewed risks, benefits, and side effects of weight management medications including phentermine, Topamax, Contrave, metformin, and GLP-1 agonist. Patient interested in GLP-1/GIP agonist Mounjaro denies personal/family history of medullary thyroid cancer/MEN syndrome. Rx for Mounjaro 2.5 mg SC weekly sent to pharmacy. Reviewed proper use, administration, and expectations for PA process/insurance coverage. After consultation and careful review of medical history, this patient would benefit from Zepbound based off of the following criteria met: Patient is over the age of 18 with a BMI of 42. Additional comorbidities include HTN, HLD, BLANCA requiring CPAP, A1c of 6.4%. Patient has trialed other methods of weight loss including improving diet and exercise, wellbutrin, metformin, psychotherapy , bariatric surgery without success.This medication is prescribed by or in consultation with a board-certified obesity and weight management physician (Dr. Carlee Epstein or Dr. Sakina Epstein). All questions answered to the patients satisfaction. Patient demonstrates understanding of diagnosis and treatments discussed. Follow-up at next scheduled appointment, sooner should any questions/concerns arise. Case discussed with collaborating physician Lisa Epstein who has reviewed the assessment/plan. Chart, medications, labs, and vital signs reviewed. Dictation completed with the use of [employer] voice recognition software, prone to medical misidentifications and grammatical errors. All errors are unintentional. Although the practitioner does try to identify and correct errors, some may be present. Please do not hesitate to contact the practitioner for clarification. Total time was 60 minutes spent with greater than 50% on coordination of care and patient education. Plan Of Treatment Next Appt Details Provider Name:CAMILO DENZEL Williamson, 07/25/2025 02:15:00 PM, [address] [facility] [address], [place], [address], Insurance Providers Payer Name Payer Address Payer Phone Subscriber Number Group Number Insured Name Patient Relationship to Insured Coverage Start Date Coverage End Date [facility] [address] [place] [address] [id number] Ruth Driver Self - patient is the insured 4 Medical (General) History Surgical History Surgery Date(Month/Year) Total hysterectomy 2020 Gastric sleeve 08/03/2023 [email or web address] 2023 Hospitalization History Reason Date(Month/Year) DVT/PE 2020
--- OUTSIDE RECORDS SUMMARY | 2025-07-25 08:20 | XMS_ITS | Clinical Summary ---
Author Organization [facility] Address [address] [place] [address] Care Team Providers Care Water Use Inspector Name Role Phone Annamarie Feliciano MD Primary Care Provider [phone] Allergies Active Allergy Reactions Criticality Noted Date Comments Adhesives/Tape Itching Low 11/28/2024 specifically Tegaderm Ciprofloxacin Itching Low 2019 Latex Itching,Rash/Dermati tis,S welling Medium 2019 Metformin Diarrhea Low 11/28/2024 Nuts Anaphylaxis High 11/28/2024 Penicillins Itching,Rash/Dermatitis Low 2019 Medications butalbital-samantha taminophen-caf feine (FioriCET) 50-300-40 mg Cap capsule TAKE 1 CAPSULE BY MOUTH EVERY 4 HOURS NEEDED 09/09/20 24 Active cetirizine (ZyrTEC) 10 MG tablet Take 1 tablet (10 mg total) by mouth daily as needed. Active EPINEPHrine 0.3 mg/0.3 mL IJ auto-injection INJECT 1 DOSE (0.3 MG) INTRAMUSCULARLY ONCE Active Emgality 120 MG/ML injection Inject 1 mL (120 mg total) under the skin every 28 days (4 weeks). 04/11/20 24 Active hydroCHLOROthi azide (HYDRODIURIL) 25 MG tablet Take 1 tablet (25 mg total) by mouth every morning. 02/21/20 24 Active lisinopril (PRINIVIL,ZeST RIL) 10 MG tablet Take 1 tablet (10 mg total) by mouth every morning. 11/03/19 Active metoPROLOL SUCCINATE (TOPROL-XL) 25 MG 24 hr tablet Take 1 tablet (25 mg total) by mouth every morning. 09/10/20 Active OMEprazole (PriLOSEC) 40 MG capsule Take 1 capsule (40 mg total) by mouth 2 (two) times a day before meals. 12/10/19 Active traZODone (DESYREL) 50 MG tablet 1 tablet (50 mg total) nightly. 11/24/19 Active Wegovy 0.25 MG/0.5ML Solution Auto-injector Inject 0.25 mg under the skin once a week. 10/14/19 Active sertraline (ZOLOFT) 100 MG tablet Take 1.5 tablets (150 mg total) by mouth every morning. 07/20/20 Active multivitamin Tab tablet Take 1 tablet by mouth every morning. Active calcium carbonate (OS-SUMI) 600 MG tablet Take 1 tablet (600 mg total) by mouth every morning. Active verapamil (CALAN-SR) 240 MG ER tablet Take 1 tablet (240 mg total) by mouth nightly. Swallow whole. Take with food. Active oxyCODONE (ROXICODONE) 5 MG immediate release tabletIndicati ons:Recurrent sinusitis Take 1 tablet (5 mg total) by mouth every 4 (four) hours as needed for severe pain. Max Daily Amount: 30 mg 10 tablet 01/18/20 Active meloxicam (MOBIC) 15 MG tablet Take 15 mg by mouth. 04/27/20 Active tiZANidine (ZANAFLEX) 2 MG tablet 04/16/20 25 Active fluticasone (FloNASE) 50 mcg/spray nasal sprayIndicatio ns:Chronic ethmoidal sinusitis 2 sprays into each nostril daily. 1 each 3 05/21/20 Active Active Problems Problem Noted Date Diagnosed Date Allergic rhinitis 01/09/2025 Encounter for screening for other metabolic diso rders 01/09/2025 Intractable headache 01/09/2025 Right lower quadrant pain 01/09/2025 Anxiety and depression 01/03/2025 Assessment & Plan (01/03/2025 8:19 AM EDT): Symptoms stable and managed with current regimen of Zoloft and trazodone. Continue plan and follow up with provider as directed. GERD (gastroesophageal reflux disease) Assessment & Plan (01/03/2025 8:18 AM EDT): Well-controlled and managed with medication. Continue current medication regimen as prescribed. Continue plan as previously directed by your provider. Hepatic steatosis 11/28/2024 History of pulmonary embolism 11/28/2024 Hypertension 11/28/2024 Assessment & Plan (01/03/2025 8:17 AM EDT): Well-controlled by lifestyle and medication. Continue current medication regimen as prescribed. Continue plan as previously directed by your provider. Impaired fasting glucose 11/28/2024 Impaired glucose tolerance 11/28/2024 Major depressive disorder, single episode, moder ate 11/28/2024 Migraines 11/28/2024 Assessment & Plan (01/03/2025 8:20 AM EDT): Managed with Emgality and Fioricet as needed. Observed sleep apnea 11/28/2024 Assessment & Plan (01/03/2025 8:17 AM EDT): Noncompliant with CPAP Popliteal pain 11/28/2024 Proteinuria 11/28/2024 Recurrent sinusitis 11/28/2024 Severe obesity 11/28/2024 Assessment & Plan (01/03/2025 8:21 AM EDT): Diet, exercise and lifestyle modifications. She is on Wegovy. Vision changes 11/28/2024 Lateral epicondylitis of left elbow 2019 Resolved Problems Problem Noted Date Diagnosed Date Resolved Date Influenza A 11/02/2024 01/01/2025 Encounters Date Type Department Care Team Description 05/21/2025 7:15 AM EDT Office Visit [facility] [address] [address] Kris Moore MD Chronic ethmoidal sinusitis (Primary Dx); Chronic maxillary sinusitis from Last 3 Months Immunizations Immunization Administration Dates Next Due Hepatitis B 03/15/2024,01/22/2024 Influenza Virus Trivalent Sp lit Vaccine (MDV) IM 07/20/2024,07/15/2023,07/16/2022,2020,07/14/2018,07/14/2017,07/06/2016,0 10/07/2012,07/04/2009 Pneumococcal Conjugate 20-Valent 09/03/2023 Td, Unspecified 03/19/2008,08/12/1994 Tdap 07/06/2016,02/13/2011 Zoster Vaccine Recombinant (Shingrix) 01/22/2024 ,09/17/2023 Family History Medical History Relation Name Comments Allergies Mother Ana Virgen Migraines Mother Ana Virgen Rashes / Skin problems Mother Ana Virgen Allergies Sister 1 Ariella CamachoParam Asthma Sister 1 Ariella CamachoParam Migraines Sister 1 Ariella Quickidge Allergies Sister 2 Shania Beck Migraines Sister 2 Shania Beck Relation Name Status Comments Mother Ana Virgen Sister 1 Ariella Virgen Sister 2 Shania Beck Social History Tobacco Use Types Packs/Day Years Used Date Smoking Tobacco: Never Smokeless Tobacco: Never Tobacco Cessation:Counseling Given: Not Answered Alcohol Use Standard Drinks/Week Comments Never 0 (1 standard drink = 0.6 oz pur e alcohol) AUDIT-C Answer Date Recorded Q1: How often do you have a drink containing alcohol? Never 12/22/2024 Q2: How many drinks containi ng alcohol do you have on a typical day when you are drinking? Patient does not drink Q3: How often do you have si x or more drinks on one occasion? Never 12/22/2024 Comments Unknown Sex and Gender Information Value Date Recorded Sex Assigned at Female 11/21/2024 8:58 AM EST Legal Sex Female 8:06 AM EST Gender Identity Female 11/21/2024 8:58 AM EST Sexual Orientation Heterosexual (straight) 11/21 8:58 AM EST Last Filed Vital Signs Vital Sign Reading Time Taken Comments Blood Pressure 158/70 01/17/2025 10:00 AM EDT Pulse 74 01/17/2025 10:00 AM EDT Temperature 36.1 C (96.9 F) 01/17/2025 8:43 AM EDT Respiratory Rate 20 01/17/2025 10:00 AM EDT Oxygen Saturation 92% 01/17/2025 10:00 AM EDT Inhaled Oxygen Concentration - - Weight 111 kg (245 lb) 05/21/2025 7:13 AM EDT Height 165.1 cm (5' 5 ) 05/21/2025 7:13 AM EDT Body Mass Index 40.77 05/21/2025 7:13 AM EDT Plan of Treatment Health Maintenance Due Date Last Done Comments Hepatitis C Virus Screening 1970 HIV Screening 1983 Pap Smear (Ages 21-65) 1991 Mammogram 2010 Colonoscopy 2015 RSV Vaccine 50 years and old er and Patients (1 - Risk 50-74 years 1-dose series) 2020 Hepatitis B Vaccines (3 of 3 - 19+ 3-dose series) 07/23/2024 03/15/2024, 01/22/2024 Influenza Vaccine 05/04/2025 07/20/2024, , 07/16/2022, Additional history exists DTaP/Tdap/Td Vaccines (3 - T d or Tdap) 07/06/2026 07/06/2016, 02/13/2011, 03/19/2008, Additional history exists Pneumococcal Vaccines 50+ Completed 09/03/2023 Zoster (Shingles) Vaccine Completed 01/22/2024, COVID-19 Vaccine Completed 07/31/2024, 10/2022, 01/16/2022, Additional history exists Insurance [facility] Advance Directives * Full Code (Latest Code Status on File) Date Activated Date Inactivated Comments 01/17/2025 6:24 AM Care Teams Water Use Inspector Relationship Specialty Start Date End Date Annamarie Feliciano MD [address] [place] [address] PCP - General Internal Medicine 11/28/24
--- OUTSIDE RECORDS SUMMARY | 2025-07-25 08:20 | XMS_ITS | Continuity of Care Document ---
Author Organization [facility] Address [address] [facility] [address] [place] [address] Insurance Providers Payer Plan Claims Address Claims Phone Policy Number Group Number Relation Employer Guarantor Name Guarantor Guarantor Address Guarantor Phone [facility] [address], [address] [address] tel:[phone] [id number] [facility] [place] [address] tel:[phone] [facility] [address], [address], [place] [id number] Self Ruth Driver [address] [place] [id number] Problems Condition ICD9 code ICD10 code SNOMED code Start Date End Date S tatus Encounter for screening for other metabolic disorders Z13.228 Results No Results Allergies, adverse reactions, alerts No known allergies and adverse reactions Medications No administered medications reported Vital Signs No vital signs reported Social History No smoking Hx information available
--- OUTSIDE RECORDS SUMMARY | 2025-07-25 08:20 | XMS_ITS | Clinical Summary ---
Author Organization [facility] Address [address] [place] [address] Care Team Providers Care Fixture Maker Name Role Phone Annamarie Feliciano MD Primary Care Provider +1- [phone] Allergies Active Allergy Reactions Criticality Noted Date Comments Ciprofloxacin 2019 Fruit 2019 Latex 2019 Penicillins 2019 Vegetable Oil 2019 Medications Medication Sig Dispensed Refills Start Date End Date Status Lancets (FREESTYLE) lancets 0 10/13/2019 Active fluticasone (FLONASE) 50 MCG/ACT nasal spray 0 10/11/2019 Ac tive FREESTYLE LITE test strip 0 10/13/2019 Active metFORMIN (GLUCOPHAGE-XR) ER 24 hr tablet 500 mg 0 11/02/2019 Active omeprazole (PriLOSEC) 40 MG capsule 0 11/05/2019 Active cyclobenzaprine (FLEXERIL) 10 MG tablet Take 10 mg by mouth 3 (three) times a day as needed for muscle spasms. 0 Active doxycycline (ADOXA) 100 MG tablet Take 100 mg by mouth 2 (two) times a day. 0 Active EPINEPHrine 0.3 MG/0.3ML SOAJ Inject 0.3 mg into the muscle once. 0 Active Flaxseed, Linseed, (FLAX SEED OIL PO) Take by mouth. 0 Ac tive hydroCHLOROthiazide (HYDRODIURIL) tablet 25 mg Take 25 mg by mouth daily. 0 Active ibuprofen (ADVIL,MOTRIN) 600 MG tablet Take 600 mg by mouth every 6 (six) hours as needed for pain. 0 Active Multiple Vitamins-Minerals (MULTIVITAL PO) Take by mouth. 0 Activ e topiramate (TOPAMAX) 50 MG tablet Take 50 mg by mouth 2 (two) times a day. 0 Active vitamin B-12 (CYANOCOBALAMIN) 500 MCG tablet Take 500 mcg by mouth daily. 0 Active vitamin D3 (VITAMIN D3) 10 MCG (400 UNIT) tablet Take 400 Units by mouth daily. 0 Active Active Problems Problem Noted Date Diagnosed Date Lateral epicondylitis of left elbow 2019 Family History Medical History Relation Name Comments Hypertension Father Anemia Mother Diabetes Mother Heart attack Mother Hypertension Mother Asthma Sister Relation Name Status Comments Father Mother Sister Social History Tobacco Use Types Packs/Day Years Used Date Smoking Tobacco: Never Smokeless Tobacco: Never Alcohol Use Standard Drinks/Week Comments No 0 (1 standard drink = 0.6 oz pur e alcohol) Sex and Gender Information Value Date Recorded Sex Assigned at Not on file Gender Identity Not on file Sexual Orientation Not on file Last Filed Vital Signs Vital Sign Reading Time Taken Comments Blood Pressure - - Pulse - - Temperature - - Respiratory Rate - - Oxygen Saturation - - Inhaled Oxygen Concentration - - Weight 129.7 kg (286 lb) 2019 3:19 PM EST Height 165.1 cm (5' 5 ) 2019 3:19 PM EST Body Mass Index 47.59 2019 3:19 PM EST Plan of Treatment Health Maintenance Due Date Last Done Comments Hepatitis B Vaccines (1 of 3 - 3-dose series) 1970 Hepatitis C Screening 1970 COVID-19 Vaccine (#1) 05/29/1971 Depression Screening 1982 BMI Counseling 1988 Preventative Health Evaluation 1988 DTap / Tdap / Td (1 - Tdap) 1989 Cervical Cancer Screening (P ap Smear) 1991 Colon Cancer Screening (Colonoscopy) 2015 Breast Cancer Screening (Mammogram) 2020 Shingrix-Zoster Vaccine (1 of 2) 2020 Influenza Vaccine (#1) 2025 Pneumococcal Vaccine Aged Out No long er eligible based on patient's age to complete this topic RSV Ped < 20 months Aged Out No longe r eligible based on patient's age to complete this topic Insurance Payer Benefit Plan / Group Subscriber ID Effective Dates Phone Address [facility] [id number] 2019-Present [address] [address] HMO Care Teams Fixture Maker Relationship Specialty Start Date End Date Annamarie Feliciano MD [address] [place] [phone] PCP - General Internal Medicine 11/29/19
--- OUTSIDE RECORDS SUMMARY | 2025-07-25 08:20 | XMS_ITS | Clinical Summary ---
Author Organization [facility] Address [address] [place] [phone] Phone Care Team Providers Care Frame Table Operator Helper Name Role Phone Annamarie Feliciano MD Primary Care Provider + Medications albuterol 90 mcg/actuation inhaler Inhale into the lungs. 08/18/20 22 Active omeprazole (PRILOSEC) 40 MG capsule Take by mouth. 12/10/19 24 Active verapamiL (VERELAN) 240 MG 24 hr capsule Take 240 mg by mouth. 11/10/19 24 Active traZODone (DESYREL) 50 MG tablet See Instructions, 1/2 tab by mouth daily, # 30 tablet, Refills 5, Tot. Refills 5, Maintenance, 11/24/23 14:07:00 EST, Instructions Replace Required Details, Route to Pharmacy Electronically, [facility]/pharmacy #[id number], Partial fill upon patient request if the... 11/24/19 24 Active CARAFATE 100 mg/mL suspension Take 1 g by mouth. 12/26 24 Active sertraline (ZOLOFT) 100 MG tablet Take 150 mg by mouth. 07/23/20 23 Active hydroCHLOROthiaz clem (HYDRODIURIL) 25 MG tablet See Instructions, TAKE 1 TABLET BY MOUTH EVERY DAY, # 90 tablet, Refills 2, Tot. Refills 2, Maintenance, 11/24/23 14:11:00 EST, Instructions Replace Required Details, Route to Pharmacy Electronically, [id number], 165, cm, 11/24/23 13:52:00 EST, H... 11/24/19 24 Active ferrous gluconate 324 mg (38 mg elemental) tablet Take 1 tablet by mouth every morning. 01/14/20 24 Active EPINEPHrine (EPIPEN) 0.3 mg/0.3 mL auto-injector Inject 0.3 mg into the muscle. 12/30/19 23 Active WEGOVY 0.25 mg/0.5 mL subcutaneous pen injection Inject 0.25 mg under the skin every 7 days. 10/14/19 25 Active lisinopril (PRINIVIL,ZESTRI L) 10 MG tablet Take 10 mg by mouth daily. 11/03/19 25 Active clindamycin (CLEOCIN) 300 MG capsule Take 300 mg by mouth daily. 11/13/19 25 Active methocarbamoL (ROBAXIN) 750 MG tablet Take 750 mg by mouth 3 (three) times a day. Active diclofenac sodium (VOLTAREN) 1 % Gel Apply 2 g topically as needed. 10/31/19 25 Active metoprolol succinate (TOPROL-XL) 25 MG 24 hr tablet Take 25 mg by mouth daily. 09/10/20 24 Active benzonatate (TESSALON) 100 MG capsule Take 100 mg by mouth as needed. 11/02/19 25 Active butalbital-aceta minophen-caffein e (FIORICET, ESGIC) 50-325-40 mg per tablet Take 1 tablet by mouth every 4 (four) hours as needed. 11/24/19 24 Active cetirizine (ZYRTEC) 10 MG tablet Take 10 mg by mouth daily. Active EMGALITY PEN 120 mg/mL subcutaneous injectionIndicat ions:Chronic migraine without aura without status migrainosus, not intractable INJECT THE CONTENTS OF 1 PEN SUBCUTANEOUSLY ONCE MONTHLY 3 mL 3 04/16/20 25 Active butalbital-aceta minophen-caffein e (FIORICET, ESGIC) 50-325-40 mg per tablet Take 1 tablet by mouth every 4 (four) hours as needed for pain (specific location in comments). 15 tablet 05/25/20 25 Active Encounters Date Type Department Care Team Description 05/25/2025 Orders Only [facility] [place] [facility] Neurology at [address] [place] [address] Brigitte Gtz PA-C from Last 3 Months Social History Tobacco Use Types Packs/Day Years Used Date Smoking Tobacco: Never Assessed Education Answer Date Recorded Are you interested in more education? Not on antolin e 01/28/2024 Are you concerned about learning? Not on file 01/28/2024 No 01/28/2024 No 01/28/2024 Digital Access Answer Date Recorded No 01/28/2024 No 01/28/2024 Reliable internet access at home? Not on file 01/28/2024 Device with a working camera? Not on file Intimate Partner Violence Answer Date R ecorded Are you denied basic needs s uch as food, clothing, or medical care? No 11/14/2024 In the past 12 months have y ou been in a relationship with a person who hurts, threatens, or tries to control you? No 11/14/2024 Are you denied basic needs s uch as food, clothing, or medical care? No 11/14/2024 In the past 12 months have y ou been in a relationship with a person who hurts, threatens, or tries to control you? No 11/14/2024 Comments Unknown Sex and Gender Information Value Date Recorded Sex Assigned at Female 06/01/2019 4:59 PM EDT Legal Sex Female 4:52 PM EDT Gender Identity Female 06/01/2019 4:59 PM EDT Sexual Orientation Straight 06/01/2019 4: 59 PM EDT Last Filed Vital Signs Vital Sign Reading Time Taken Comments Blood Pressure 132/76 11/14/2024 10:41 AM EST Pulse 61 11/14/2024 10:41 AM EST Temperature 36.2 C (97.1 F) 11/14/2024 10:41 AM EST Respiratory Rate - - Oxygen Saturation 96% 11/14/2024 10:41 AM EST Inhaled Oxygen Concentration - - Weight 116.1 kg (256 lb) 11/14/2024 10:41 AM EST Height 165.1 cm (5' 5 ) 11/14/2024 10:41 AM EST Body Mass Index 42.6 11/14/2024 10:41 AM EST Plan of Treatment Upcoming Encounters Date Type Department Care Team (Late Contact Info) Description 11/20/2025 11:30 AM EST Office Visit [facility] Neurology at [facility] [address] [place] [address] Maldonado Helms MD [address] [place] [phone] [email or web address] Health Maintenance Due Date Last Done Comments CREATININE LEVEL 1970 LIPID PANEL 1970 POTASSIUM LEVEL 1970 DEPRESSION SCREENING 1982 SMOKING Hx and SMOKELESS TOBACCO SCREENING 1983 HEPATITIS C SCREENING 1988 HIV ONE-TIME SCREENING (18-65 YEARS) 1988 PAP SMEAR 1991 SCREENING FOR DIABETES 2005 MAMMOGRAM 2010 COLOGUARD 2015 COLONOSCOPY 2015 COLORECTAL CANCER SCREENING 2015 FIT TEST 2015 FOBT 2015 SIGMOIDOSCOPY 2015 VIRTUAL COLONOSCOPY 2015 RSV VACCINE (1 - Risk 50-74 years 1-dose series) 2020 Adult Td,Tdap Booster 02/13/2021 02/13/2011 , 03/19/2008, 08/12/1994 INFLUENZA VACCINE (#1) 2025 , 07/16/2022, 08/18/2021, Additional history exists COVID-19 VACCINE ( season) 2025 09/03/2023, 01/16/2022, 10/16/2021, Additional history exists PNEUMOCOCCAL VACCINES (50+ years) Completed 09/03/2023 ZOSTER VACCINES Completed 01/22/2024, 09/17/2023 HEPATITIS A VACCINES Aged Out No long er eligible based on patient's age to complete this topic HIB VACCINES Aged Out No longer eligi ble based on patient's age to complete this topic MENINGOCOCCAL VACCINES (ACWY) Aged Out No longer eligible based on patient's age to complete this topic MENINGOCOCCAL VACCINES (B) Aged Out N o longer eligible based on patient's age to complete this topic Medical Devices Not on file Insurance [facility] Member Subscriber Plan / Payer (Ef fective 2023-Present) Name:Ruth Driver Relation to Subscriber:Self Name:Ruth Driver Payer ID:Not on file Type:PPO Address: [address] [employer] [facility] [employer] [facility] Member Subscriber Plan / Payer (Ef fective 2023-Present) Name:Ruth Driver Relation to Subscriber:Self Name:Ruth Driver Payer ID:Not on file Type:PPO Address: [address] [employer] [facility] Member Subscriber Plan / Payer (Ef fective 2023-Present) Name:Ruth Driver Relation to Subscriber:Self Name:Ruth Driver Payer ID:Not on file Type:PPO Address: [address] SERVICES [facility] [employer] Care Teams Frame Table Operator Helper Relationship Specialty Start Date End Date Annamarie Feliciano MD [address] [place] [address] PCP - General Internal Medicine 06/01/19 Additional Source Comments The information contained in this document represents components of the legal health record. It is not the complete legal health record.[facility]
--- OUTSIDE RECORDS SUMMARY | 2025-07-25 08:20 | XMS_ITS | Clinical Summary ---
Author Organization [facility] Address [address] [address] Phone Care Team Providers Care Bicycle Taxi Driver Name Role Phone Shaquille Alexander MD Primary Care Provider [phone] Encounters Date Type Department Care Team Description 06/06/[address] [place] [address] Shaquille Alexander MD from Last 3 Months Surgical History Surgery Date Site/Laterality Comments MULTIPLE TOOTH EXTRACTIONS -2007 PROCEDURE: HISTORICAL DENTAL EXTRACTION; COMMENT: x1, no excess bleeding Medical History Medical History Date Comments Headache(784.0) DX:Headache(784. 0) Microcytic anemia 08/02/2007 DX:Microcytic anemia Allergic rhinitis 03/19/2008 DX:Allergic rh initis Historical Medical DX 03/19/2008 DX:Food al lergy HTN (hypertension) 12/22/2010 DX:HTN (hyper tension) GERD (gastroesophageal reflux disease) 10/17/2012 DX:GERD (gastroesophageal reflux disease) Family History Relation Name Status Comments Father Alive HTN Mother Alive HTN Sister Alive x3, two are obe se, one with asthma, one with migraine Social History Tobacco Use Types Packs/Day Years Used Date Smoking Tobacco: Never Smokeless Tobacco: Never Alcohol Use Standard Drinks/Week Comments No 0 (1 standard drink = 0.6 oz pur e alcohol) Comments Unknown Sex and Gender Information Value Date Recorded Sex Assigned at Not on file Legal Sex Female 10:06 AM EST Gender Identity Not on file Sexual Orientation Not on file Obstetrics History Plan of Treatment Health Maintenance Due Date Last Done Comments Breast Cancer Screening 1970 Colorectal Cancer Screening: Colonoscopy 1970 Hepatitis B Vaccines (1 of 3 - 19+ 3-dose series) 1989 Cervical Cancer Screening: P ap Smear 1991 Pneumococcal Vaccine: 50+ Years (1 of 1 - PCV) 2020 Zoster Vaccines (1 of 2) 2020 DTaP,Tdap,and Td Vaccines (4 - Td or Tdap) 02/13/2021 02/13/2011, 03/19/2008, 08/12/1994 Depression Screening 10/04/2024 Cholesterol Screening (Lipid Panel) 04/11/2025 HIV Screening 04/11/2025 Hepatitis C Screening 04/11/2025 Hypertension/CHF/CAD Annual BMP Blood Test 04/11/2025 Social Influencers of Health Screening 04/11/2025 COVID-19 Vaccine (1 - 2023-2 5 season) 2025 Influenza Vaccine (#1) 2025 3, 07/04/2009, 07/04/2009 RSV Immunization Adult Patients (1 - 1-dose 75+ series) 2045 HIB Vaccines Aged Out No longer eligi ble based on patient's age to complete this topic HPV Vaccines Aged Out No longer eligi ble based on patient's age to complete this topic Hepatitis A Vaccines Aged Out No long er eligible based on patient's age to complete this topic IPV Vaccines Aged Out No longer eligi ble based on patient's age to complete this topic MMR Vaccines Aged Out No longer eligi ble based on patient's age to complete this topic Meningococcal ACWY Vaccine Aged Out N o longer eligible based on patient's age to complete this topic Meningococcal B Vaccine Aged Out No l onger eligible based on patient's age to complete this topic RSV Immunization Patients Under 20 months Aged Out No longer eligible b ased on patient's age to complete this topic Varicella Vaccines Aged Out No longer eligible based on patient's age to complete this topic Insurance [employer] Care Teams Bicycle Taxi Driver Relationship Specialty Start Date End Date Shaquille Alexander MD [address] [place] [address] PCP - General Internal Medicine 04/02/25
--- OUTSIDE RECORDS SUMMARY | 2025-07-25 08:20 | XMS_ITS | Encounter Summary ---
Author Organization [facility] Address [address] [place] [address] Care Team Providers Care Scullion Chief Name Role Phone Annamarie Feliciano MD Primary Care Provider [phone] Encounter Details Date Type Department Care Team (Late st Contact Info) Description 01/09/2025 Scanned Document [facility] [place] [address] [place] [address] [place] [address] Kris Moore MD [address] [place] [address] Social History Tobacco Use Types Packs/Day Years Used Date Smoking Tobacco: Never Smokeless Tobacco: Never Alcohol Use Standard Drinks/Week Comments Never 0 [...] Orientation Heterosexual (straight) 11/21 8:58 AM EST documented as of this encounter Plan of Treatment Not on file documented as of this encounter Visit Diagnoses Not on filedocumented in this encounter Care Teams Scullion Chief Relationship Specialty Start Date End Date Annamarie Feliciano MD [address] [place] [address] PCP - General Internal Medicine 11/28/24 documented as of this encounter
--- OUTSIDE RECORDS SUMMARY | 2025-07-25 08:20 | XMS_ITS | Encounter Summary ---
Author Organization [facility] Address [address] [place] [address] Care Team Providers Care Cantilever Crane Operator Name Role Phone Annamarie Feliciano MD Primary Care Provider [phone] Encounter Details Date Type Department Care Team (Late st Contact Info) Description 01/15/2025 Scanned Document [facility] [place] [address] [place] [address] Kris Moore MD [address] [place] [address] Social History Tobacco Use Types Packs/Day [...] on filedocumented in this encounter Care Teams Cantilever Crane Operator Relationship Specialty Start Date End Date Annamarie Feliciano MD [address] [place] [address] PCP - General Internal Medicine 11/28/24 documented as of this encounter
--- OUTSIDE RECORDS SUMMARY | 2025-07-25 08:20 | XMS_ITS | Data Portability ---
Author Organization [place] [facility] Joycelyn [facility] [place] Address [address] [place] [address] Care Team Providers Care Signals Analyst Name Role Phone NURIS DORANTES Primary Care Provider [phone] NURIS DORANTES Referring Provider [phone] Assessment Encounter Date Assessment Date Assessment LastModified by Organization Details LastModified Time 04/27/2025 04/27/2025 I reviewed my findings with the patient today. Exam and x-rays consistent with symptomatic osteoarthritis. We reviewed the natural history of osteoarthritis. I used diagrams and a model to demonstrate the areas of arthritic change. The patient understands that symptoms may progress over time requiring further intervention. We discussed in detail available treatment options: 1. Activity modification, especially avoiding impact type activities 2. Ongoing maintenance flexibility and strengthening program. This should involve the core musculature, the hip, as well as the quadriceps and hamstrings. 3. Intermittent icing 20 minutes off in 3 to 4 times a day may be helpful for control of swelling. 4. [id number]-[id number] anti-inflammator y medications with appropriate GI precautions or Tylenol may be helpful in controlling intermittent symptoms of pain. 5. An assistive device such as a cane may be helpful in unloading the joint. We also discussed other interventions including therapeutic injections including cortisone and viscosupplementa tion. Cortisone comes in two different preparations: 1. Quick release, typically in the form of Depomedrol. 2. Slow release preparation called Zilretta (this requires insurance pre authorization) Viscosupplementa tion gel injection . Common preparations include Synvisc, Euflexxa, Durolane, Supartz (these all require insurance pre authorization) We also discussed the possibility of surgical intervention if symptoms persist. We discussed arthroscopic intervention as well as total knee arthroplasty. The patient understands that the majority of patients do not require surgical management for their symptomatic arthritis. I have recommended a short consistent course of anti-inflammator y medication. Prescription for meloxicam sent to her pharmacy. Risk and side effects of medication discussed. We discussed the importance of weight loss and low impact exercise. She will continue rest and icing as needed. Follow-up 4 weeks The patient was seen and evaluated by Giancarlo Morin PA-C in indirect conjunction with Vijay Liao MD. He agrees with history, physical examination, test/diagnostic imaging, and treatment plan. [email or web address] Not available 04/27/2025 11:39:22 05/23/2025 05/23/2025 I reviewed my findings with patient today. She has ongoing pain and swelling despite the meloxicam. I suggested possible aspiration and cortisone injection today. I reviewed risk, benefits and side effects of the injection and she wishes to proceed. Postinjection icing protocol reviewed. Follow-up 4 weeks The patient was seen and evaluated by Giancarlo Morin PA-C in indirect conjunction with Vijay Liao MD. He agrees with history, physical examination, test/diagnostic imaging, and treatment plan. [email or web address] Not available 05/23/2025 15:08:11 06/28/2025 06/28/2025 Improvement in knee pain after cortisone injection in the setting of osteoarthritis. She will continue working on her weight loss and low impact exercise. Judicious use of NSAIDs, resting and icing as needed. She will call if any worsening symptoms The patient was seen and evaluated by Giancarlo Morin PA-C in indirect conjunction with Vijay Liao MD. He agrees with history, physical examination, test/diagnostic imaging, and treatment plan. [email or web address] Not available 06/28/2025 16:28:08 Plan of Treatment Reminders Order Date Submit Date Provider Last Modified By Organization Details Last Modified Time Details Appointments None recorded. Lab None recorded. Referral None recorded. Procedures None recorded. Surgeries None recorded. Imaging None recorded. Medication Orders lidocaine (PF) 10 mg/mL (1 %) injection solution 2024 025 reshma 23 [facility]armacy #[id number], [address] [place], [address], 16:16:14 triamcinolo ne acetonide 40 mg/mL suspension for injection 2024 025 [facility] 23 [facility]/Pharmacy #[id number], [address] [place], [address], 16:15:59 meloxicam 15 mg tablet 2024 025 [facility]/Pharmacy #[id number], [address] [place], [address], 16:16:28 Patient TargetsNo targets recorded. Patient InstructionsNo instructions recorded. Reason for Referral None Reported. Results Created Date Observation Date Name Description Value Unit Range Abnormal Flag Note LastModifiedBy Organization Detail LastModifiedTime 04/25/2003/31/2025 US, ralph x, ariella s, lower extre mity No observ ation record ed. [email or web address] [facility] [address] [place], [address], 07/17/2025 09:23:53 04/27/20 imagi ng/di agnos tic resul t No observ ation record ed. [email or web address] Not Available 04/27 14:33:18 Result Notes None recorded. Problems Name Problem SNOMED Code Status Onset Date Resolution Date Notes Provider Name and Address Organization Details Recorded Time Left lateral elbow tendinopa thy 73612325328 9100 Active 2019 Lateral epicondyl itis of left elbow Not Available [facility] 00:41:23 Osteoarth ritis of left knee joint 00759281186 9109 Active [address], [place], [address] , [place] [facility] 08:41:23 Lipoma of left lower limb 58837788233 18419 Active [address], [place], [address] , [place] [facility] 5 08:41:39 Problem Notes None recorded. Procedures Surgical History Date Name Laterality Status Provider Name and Address Organization Details Recorded Time 05/23/20 25 BLW Knee Asp/Inj w/US completed GIANCARLO MORIN PA-C [address], [place], [address], [place] [facility] 05/23/2025 15:07:42 hysterectomy completed Brooke Schulte [place] [facility] 04/27/2025 11:26:08 Bariatric Surgery completed Brooke Schulte [place] [facility] 04/27/2025 11:26:30 Gallbladder Surgery completed Brooke Schulte [facility] 04/27/2025 11:26:47 Imaging Results None recorded. Procedure Notes None recorded. Medical Equipment None Reported. Allergies Allergen ID Allergen Name Allergen Category Reaction Reaction Severity Criticality Documentation Date Start Date Code Code System Note Provider Name and Address Organization Details Recorded Time 10001 Product containin g penicilli n (product) medicatio n Not available Not available Not available 04/27/2025 74391 8001 SNOMED Brooke h[place]osa, [place] [facility] 11:10:01 83225 latex environme nt,medica tion Not available Not available Not available 04/27/20251996 72732 91 RxNorm Brooke Eris h[place]josa, [place] [facility] 5 11:10:01 46743 Cipro medicatio n Not available Not available Not available 04/27/2025 21036 3 RxNorm Brooke Eris h[place]osa, [place] [facility] 5 11:10:14 60903 hydrogena asa vegetable oil food,medi cation Not available Not available Not available 06/26/20252019 43313 25 RxNorm Not Available [facility] 5 01:12:18 98389 ciproflox acin medicatio n Not available Not available Not available 06/26/20252019 2551 RxNorm Not Available [facility] 01:12:18 Medications Name Sig Start Date Stop Date Status Note LastModified by Organization Details LastModified Time cyclobenzap rine 10 mg tablet Take 10 mg by mouth 3 (three) times a day as needed for muscle spasms. active Not Available Not Available No t Available acetaminoph en 325 mg tablet TAKE 3 TABLETS BY MOUTH EVERY 8 HOURS,X14 DAYS NEEDED FOR PAIN 06/28 completed Not Available Not Available Not Available tizanidine 2 mg tablet TAKE 1 TO 2 TABLETS BY MOUTH EVERY 8 HOURS NEEDED FOR MODERATE PAIN FOR 7 DAYS 05/23 completed Not Available Not Available Not Available clindamycin HCl 300 mg capsule TAKE 1 CAPSULE BY MOUTH FOUR TIMES A DAY UNTIL FINISHED DIRECTED 04/25 completed Not Available Not Available Not Available trazodone 50 mg tablet TAKE 1 & 1/2 TO 2 TABLETS AT NIGHT FOR SLEEP active Not Available Not Available No t Available azithromyci n 250 mg tablet TAKE 2 TABLETS BY MOUTH TODAY, THEN TAKE 1 TABLET DAILY FOR 4 DAYS DIRECTED 04/25 completed Not Available Not Available Not Available ibuprofen 800 mg tablet TAKE 1 TABLET BY MOUTH EVERY 6 HOURS 05/23 completed Not Available Not Available Not Available meloxicam 15 mg tablet TAKE 1 TABLET BY MOUTH EVERY DAY 06/28 completed Not Available Not Available Not Available sertraline 100 mg tablet TAKE 2 TABLETS BY MOUTH EVERY DAY active Not Available Not Available No t Available clindamycin HCl 150 mg capsule TAKE 1 CAPSULE BY MOUTH THREE TIMES A DAY UNTIL FINISHED 04/25 completed Not Available Not Available Not Available cyanocobala min (vit B-12) 1,000 mcg tablet TAKE 1 TABLET BY MOUTH EVERY DAY active Not Available Not Available No t Available omeprazole 40 mg capsule,del ayed release 2019 active Not Available Not Available Not Avai lable doxycycline monohydrate 100 mg tablet Take 100 mg by mouth 2 (two) times a day. active Not Available Not Available No t Available triamcinolo ne acetonide 0.1 % topical cream APPLY TO AFFECTED AREA 3 TIMES A DAY TOPICALLY 06/28 completed Not Available Not Available Not Available butalbital- acetaminoph en-caffeine 50 mg-325 mg-40 mg tablet TAKE 1 TABLET BY MOUTH EVERY 4 HOURS NEEDED FOR PAIN active Not Available Not Available No t Available methocarbam ol 750 mg tablet TAKE 1-2 TABLET(S) BY MOUTH 3 TIMES A DAY NEEDED FOR PAIN/SPAS M, TO REPLACE TIZANIDIN E 05/23 completed Not Available Not Available Not Available cyanocobala min (vit B-12) 500 mcg tablet Take 500 mcg by mouth daily. active Not Available Not Available No t Available benzonatate 100 mg capsule TAKE 1 CAPSULE BY MOUTH 3 TIMES A DAY FOR 7 DAYS 05/23 completed Not Available Not Available Not Available doxycycline monohydrate 100 mg capsule TAKE 1 CAPSULE BY MOUTH TWICE A DAY FOR 10 DAYS 04/25 completed Not Available Not Available Not Available triamcinolo ne acetonide 40 mg/mL suspension for injection Take 80 mg by injection route. 06/28 completed Not Available Not Available Not Available erythromyci n 5 mg/gram (0.5 %) eye ointment APPLY 0.5 INCHES EYES, BOTH 4 TIMES A DAY 04/25 completed Not Available Not Available Not Available oseltamivir 75 mg capsule TAKE 1 CAPSULE BY MOUTH TWICE A DAY FOR 5 DAYS 05/23 completed Not Available Not Available Not Available lisinopril 10 mg tablet TAKE 1 TABLET BY MOUTH EVERY DAY active Not Available Not Available No t Available naproxen 500 mg tablet,chula yed release TAKE 1 TABLET BY MOUTH TWICE A DAY NEEDED FOR MILD PAIN 05/23 completed Not Available Not Available Not Available codeine 10 mg-guaifene sin 100 mg/5 mL oral liquid TAKE 5 ML BY MOUTH EVERY 6 HOURS NEEDED FOR COUGH 05/23 completed Not Available Not Available Not Available hydrochloro thiazide 25 mg tablet Take 25 mg by mouth daily. active Not Available Not Available No t Available metoprolol succinate ER 25 mg tablet,exte nded release 24 hr TAKE 1 TABLET BY MOUTH EVERY DAY active Not Available Not Available No t Available epinephrine 0.3 mg/0.3 mL injection, auto-inject or Inject 0.3 mg into the muscle once. active Not Available Not Available No t Available ibuprofen 600 mg tablet Take 600 mg by mouth every 6 (six) hours as needed for pain. active Not Available Not Available No t Available methylpredn isolone 4 mg tablets in a dose pack TAKE 6 TABLETS ON DAY 1 DIRECTED ON PACKAGE AND DECREASE BY 1 TAB EACH DAY FOR A TOTAL OF 6 DAYS 05/23 completed Not Available Not Available Not Available fluticasone propionate 50 mcg/actuati on nasal spray,suspe nsion SPRAY 2 SPRAYS INTO EACH NOSTRIL EVERY DAY active Not Available Not Available No t Available metformin ER 500 mg tablet,exte nded release 24 hr 2019 active Not Available Not Available Not Avai lable cholecalcif ty (vitamin D3) 10 mcg (400 unit) tablet Take 400 Units by mouth daily. active Not Available Not Available No t Available oxycodone 5 mg tablet TAKE 1 TABLET BY MOUTH EVERY 4 HOURS NEEDED FOR SEVERE PAIN MAX DAILY AMOUNT 6 TABS 05/23 completed Not Available Not Available Not Available enoxaparin 40 mg/0.4 mL subcutaneou s syringe INJECT 0.4 MLS SUBCUTANE OUSLY EVERY 12 HOURS FOR 14 DAYS 05/23 completed Not Available Not Available Not Available bupropion HCl XL 150 mg 24 hr tablet, extended release TAKE 1 TABLET BY MOUTH EVERY DAY active Not Available Not Available No t Available topiramate 50 mg tablet Take 50 mg by mouth 2 (two) times a day. active Not Available Not Available No t Available tizanidine 2 mg capsule TAKE 1 CAPSULE BY MOUTH THREE TIMES A DAY NEEDED FOR MUSCLE SPASM 05/23 completed Not Available Not Available Not Available chlorhexidi ne gluconate 0.12 % mouthwash RINSE WITH 1/2 OUNCE (15ML) BY MOUTH TWICE A DAY DIRECTED. SPIT, DO NOT SWALLOW 05/23 completed Not Available Not Available Not Available Wellbutrin active Not Available Not Av ailable Not Available lidocaine (PF) 10 mg/mL (1 %) injection solution Take 2 mL by injection route. 06/28 completed Not Available Not Available Not Available ferrous gluconate 324 mg (38 mg iron) tablet TAKE 1 TABLET BY MOUTH EVERY DAY active Not Available Not Available No t Available diclofenac 1 % topical gel PLEASE SEE ATTACHED FOR DETAILED DIRECTION S 05/23 completed Not Available Not Available Not Available butalbital- acetaminoph en-caffeine 50 mg-300 mg-40 mg capsule TAKE 1 CAPSULE BY MOUTH EVERY 4 HOURS NEEDED active Not Available Not Available No t Available Wegovy 1 mg/0.5 mL subcutaneou s pen injector INEJCT 1 MG SUBCUTANE OUSLY EVERY WEEK IN THE ABDOMEN, THIGH, OR UPPER ARM 06/28 completed Not Available Not Available Not Available Wegovy 0.25 mg/0.5 mL subcutaneou s pen injector INJECT 0.25MG EVERY WEEK, ROTATE INJECTION SITES 05/23 completed Not Available Not Available Not Available Wegovy 0.5 mg/0.5 mL subcutaneou s pen injector INJECT 0.5 ML UNDER THE SKIN WEEKLY 05/23 completed Not Available Not Available Not Available Vitals Date Recorded Body height Body mass index (BMI) Body weight Provider Name and Address Organization Details Last Updated DateTime 04/27/2025 165.1 cm 37.6 kg/m2 834821.[address] [place] [facility] 04/27/2025 11:16:49 Date Recorded Body height Provider Name an d Address Organization Details Last Updated DateTime 05/23/2025 165.[address] [place] [facility] 05/23/2025 14:55:19 Date Recorded Body height Provider Name an d Address Organization Details Last Updated DateTime 06/28/2025 165.1 cm [facility] [place] [facility] 06/28/2025 16:15:34 Social History None recorded. Functional Status Question Answer Note LastModified by Organizat ion Details LastModified Time Do you use any illicit or recreational drugs? No [email or web address] Information not available 04/27/2025 Do you or have you ever used any other forms of tobacco or nicotine? No [email or web address] Information not available 04/27/2025 What is your level of alcohol consumption? None [email or web address] Information not available 04/27/2025 Are you currently employed? 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 Family History Relationship Description Onset Age of this Age Resolved Age Notes LastModified by Organization Details LastModified Time Mother Hypertensive disorder [email or web address] Not available 2024 11:27:11 Mother Diabetes mellitus [email or web address] Not available 2024 11:27:22 Father Hypertensive disorder [email or web address] Not available 2024 11:27:11 Sister Hypertensive disorder [email or web address] Not available 2024 11:27:11 Sister Arthritis [email or web address] Not availabl e 04/27/2025 11:27:37 Notes:RHEUMATOLOGIC DISEASE- SISTER Medical History Condition Response Coronary Artery Disease N Gout N Hyperthyroidism N Blood Transfusion N MRSA N Emphysema N Depression Y COPD N Hypothyroidism N Pacemaker N Vascular Disease N Gastrointestinal Disease N Anxiety Disorder N Autoimmune disease N Arthritis N Cancer N Stroke N High Cholesterol N Neurologic Disorder N Liver Disease N Organ Transplant N Arrhythmia N Rheumatoid Arthritis N Fibromyalgia N Kidney Disease N Allergies/Hayfever Y Adverse Reaction to Anesthesia N Thyroid Problems N Anemia N Brain Injury N Heart Attack ([place]) N Osteopenia N Diabetes N Bleeding Disorder N Seizures/Epilepsy N AIDS/HIV N Congestive Heart Failure (CHF) N Asthma N Amputation N Reflux/GERD Y Sleep Apnea Y Hepatitis N Aneurysm N Heart Disease N Pulmonary Embolism N Hypertension Y Osteoporosis N Gynecological HistoryNo gynecological history recorded. Obstetrics History GPAL:G 0 P 0 0 0 0 Past Encounters Encounter ID Performer Location Encounter Start Date Encounter Closed Date Diagnosis/Indication Diagnosis SNOMED-CT Code Diagnosis ICD10 Code Diagnosis IMO Codes Diagnosis Note [id number] JONN BERRIOS [address] [address] 04/27/2025 10:49:57 04/27/2025 11:41:21 Osteoarthritis of left knee joint 3112054165 64566 M17.12 [id number] Lipoma of left lower limb 4185758510 610527 D17.24 [id number] JONN BERRIOS [address] [address] 05/23/2025 14:42:51 05/23/2025 15:12:55 Osteoarthritis of left knee joint 6670317587 84245 M17.12 6811214 Effusion o f joint of left knee 0870362378 26449 M25.842 [id number] JONN BERRIOS [address] [address] 06/28/2025 16:07:23 06/28/2025 16:21:17 Osteoarthritis of left knee joint 7427435296 00348 M17.12 [id number] Health Concerns Section Related Observation LastModified by Organization Detai ls LastModified Time None Recorded Concern Status LastModified by Organization Details LastModified Time None Recorded Advance Directives Directive None Recorded Payers Insurance Date Sequence Insurance Name Policy Number Policy Lizarraga Covered Member ID Lizarraga Member ID Guarantor Name 06/25/2025 1 [facility] [id number] Ruth Driver [id number] Ruth Driver Notes Date Note Type Note Provider Name and Address Organization Details Recorded Time 04/27/2025 text/html Ruth Driver is a 54-year-old woman who presents to the office today due to complaints of left knee pain. She went to [facility] where she had x-rays on 03/31/2025 which revealed Mild tricompartmental osteoarthritis. An ultrasound was done 04/09/25 which revealed a Lipoma. She currently describes constant moderate aching which is worse with movement and weightbearing. She has some swelling. She was seen by her PCP who gave her prescription for tizanidine which has been somewhat helpful. She takes occasional Motrin and Tylenol as well. She rates her pain on average 7/10 is worst 10/10. [address], [place], [address], [place] [facility] 04/27/2025 11:40:00 05/23/2025 text/html Ruth returns to the office today for follow-up with her left knee pain. She was last seen by me on 04/27/2025 and she was given a prescription for meloxicam for her symptomatic osteoarthritis. She got some relief from the meloxicam but she has ongoing constant moderate aching which is worse with movement. She has loss of motion and swelling. She is also been using Tylenol without relief. She rates her pain on average 6/10 at its worst 10/10. GIANCARLO MORIN PA-C [address], [place], [address], [facility] - [facility] 05/23/2025 15:08:56 06/28/2025 text/html Ruth returns to the office today for follow-up of her left knee pain. She was last seen by me on 05/23/2025 and underwent aspiration and cortisone injection due to her symptomatic osteoarthritis. She got significant relief from the injection. She only has mild intermittent discomfort. She rates the pain as 1/10. Overall she is pleased with her progress GIANCARLO MORIN PA-C [address], [place], [address], [place] [facility] 06/28/2025 16:28:22 OBGyn Episode No OBEpisode recorded.
--- OUTSIDE RECORDS SUMMARY | 2025-07-25 08:20 | XMS_ITS | Encounter Summary ---
Author Organization [facility] Address [address] [place] [address] Care Team Providers Care Research Agricultural Engineer Name Role Phone Annamarie Feliciano MD Primary Care Provider [phone] Encounter Details Date Type Department Care Team (Late st Contact Info) Description 02/15/2025 Scanned Document [facility] [address], [place] [address] Kris Moore MD [address] [place] [address] Social History Tobacco Use Types Packs/Day Years [...] on filedocumented in this encounter Care Teams Research Agricultural Engineer Relationship Specialty Start Date End Date Annamarie Feliciano MD [address] [place] [address] PCP - General Internal Medicine 11/28/24 documented as of this encounter
--- OUTSIDE RECORDS SUMMARY | 2025-07-25 08:20 | XMS_ITS ---
Author Name [facility] Organization Unknown Results Test Name/Text Value Interpretation Date Range Source Anion Gap Bld-sCnc 9.0 Normal 01/03/2025 7 - 17 [facility] CO2 SerPl-sCnc 30.0 mmol/L Normal 01/03/2025 22 - 33 HH CCT Potassium SerPl-sCnc 3.6 mmol/L Normal 01/03/2025 3.4 - 5 .3 [facility] GFR/BSA.pred SerPlBld BGC-RYM-GqZYsp 76.0 Normal 01/03/2025 59 - [facility] Creat SerPl-mCnc 0.9 mg/dL Normal 01/03/2025 0.4 - 1.1 HH CCT Calcium SerPl-mCnc 9.4 mg/dL Normal 01/03/2025 8.7 - 10.5 [facility] BUN/Creat SerPl 20.0 Ratio Normal 01/03/2025 10 - 25 HH CCT Sodium SerPl-sCnc 141.0 mmol/L Normal 01/03/2025 136 - 14 5 [facility] Chloride SerPl-sCnc 102.0 mmol/L Normal 01/03/2025 98 - 1 07 [facility] Glucose SerPl-mCnc 82.0 mg/dL Normal 01/03/2025 65 - 99 [facility] BUN SerPl-mCnc 18.0 mg/dL Normal 01/03/2025 8 - [address] Basophils/leuk NFr Bld Auto 0.7 % Normal 01/03/2025 [facility] Neutrophils/leuk NFr Bld Auto 58.1 % Normal 01/03/2025 [facility] Eosinophil num Bld Auto 0.16 Thou/uL Normal 01/03/2025 0 - 0.7 [facility] Imm Granulocytes num Bld Auto 0.03 Thou/uL Normal 01/03/2025 0 - 0.1 [facility] Monocytes/leuk NFr Bld Auto 8.6 % Normal 01/03/2025 [facility] Eosinophil/leuk NFr Bld Auto 2.1 % Normal 01/03/2025 [facility] RBC num Bld Auto 5.38 Mil/uL Normal 01/03/2025 4 - 5.4 [facility] Hct VFr Bld Auto 41.3 % Normal 01/03/2025 35 - 47 HH CCT Neutrophils num Bld Auto 4.47 Thou/uL Normal 01/03/2025 2 - 7.5 [facility]CT MCH RBC Qn Auto 23.2 pg Below low normal 01/03/2025 27 - 3 1 [facility] WBC num Bld Auto 7.7 Thou/uL Normal 01/03/2025 4 - 11 [facility] Imm Granulocytes/leuk NFr Bld Auto 0.4 % Normal 01/03/2025 [facility] Platelet num Bld Auto 398.0 Thou/uL Normal 01/03/2025 150 - 450 [facility] Basophils num Bld Auto 0.05 Thou/uL Normal 01/03/2025 0 - 0.2 [facility] Hgb Bld-mCnc 12.5 g/dL Normal 01/03/2025 11.7 - 15.7 [facility] T Monocytes num Bld Auto 0.66 Thou/uL Normal 01/03/2025 0.2 - 1.5 [facility] Lymphocytes/leuk NFr Bld Auto 30.1 % Normal 01/03/2025 [facility] PMV Bld Auto 9.3 fL Normal 01/03/2025 7.5 - 12.5 [facility] MCV RBC Auto 77.0 fL Below low normal 01/03/2025 80 - 100 [facility] MCHC RBC Auto-mCnc 30.3 g/dL Normal 01/03/2025 30 - 36 [facility] Lymphocytes num Bld Auto 2.31 Thou/uL Normal 01/03/2025 1.5 - 4.5 [facility] RDW RBC Auto-Rto 15.3 % Above high normal 01/03/2025 11.5 - 14.5 [facility] History of Medication Use Medication Directions Dispensed Refills Start Date End Date Status lidocaine (PF) 10 mg/mL (1 %) injection solution Take 2 mL by injection route. 05/23/20 25 active triamcinolone acetonide 40 mg/mL suspension for injection Take 80 mg by injection route. 05/23/20 active fluticasone (FloNASE) 50 mcg/spray nasal spray 2 sprays into each nostril daily. 05/21/20 active meloxicam 15 mg tablet Take 1 tablet quinten ry day by oral route. 04/27/20 active meloxicam (MOBIC) 15 MG tablet Take 15 mg by mouth. 04/27/20 active tiZANidine (ZANAFLEX) 2 MG tablet 04/16/20 active oxyCODONE (ROXICODONE) 5 MG immediate release tablet Take 1 tablet (5 mg total) by mouth every 4 (four) hours as needed for severe pain. Max Daily Amount: 30 mg 01/18/20 active doxycycline (ADOXA) 100 MG tablet Take 1 tablet (100 mg total) by mouth every 12 (twelve) hours around the clock. 11/28/19 active lisinopril (PRINIVIL,ZeSTRIL) 10 MG tablet Take 10 mg by mouth daily. 11/03/19 active Wegovy 0.25 MG/0.5ML Solution Auto-injector Inject 0.25 mg under the skin. 10/14/19 active semaglutide (OZEMPIC) (0.25 or 0.5 mg/dose pen) prefilled pen injection Inject 0.25 mg under the skin. 10/13/19 active TiZANidine (ZANAFLEX) 2 MG capsule TAKE 1 CAPSULE BY MOUTH THREE TIMES A DAY NEEDED FOR MUSCLE SPASM 09/26/20 active metoPROLOL SUCCINATE (TOPROL-XL) 25 MG 24 hr tablet Take 25 mg by mouth daily. 09/10/20 active butalbital-acetaminophe n-caffeine (FioriCET) 50-300-40 mg Cap capsule TAKE 1 CAPSULE BY MOUTH EVERY 4 HOURS NEEDED 09/09/20 active sertraline (ZOLOFT) 100 MG tablet Take 150 mg by mouth. 07/20/20 active Emgality 120 MG/ML injection 0 Refills, Maintenance, 05/12/24 12:26:00 PM EDT, Partial fill upon patient request if the prescription is for a schedule II opioid drug. 04/11/20 active Emgality 120 MG/ML injection Inject 1 mL (120 mg total) under the skin every 28 days (4 weeks). 04/11/20 24 active OMEprazole (PriLOSEC) 40 MG capsule Take 1 capsule by mouth. 12/10/19 24 active OMEprazole (PriLOSEC) 40 MG capsule Take 1 capsule (40 mg total) by mouth 2 (two) times a day before meals. 12/10/19 24 active hydroCHLOROthiazide (HYDRODIURIL) 25 MG tablet See Instructions, TAKE 1 TABLET BY MOUTH EVERY DAY, # 90 tablet, Refills 2, Tot. Refills 2, Maintenance, 07/20/24 9:11:00 AM EDT, Instructions Replace Required Details, Route to Pharmacy Electronically, [facility], 165, cm, 07/20/24 8:50:00 EDT, Height, 114, kg, 07/20/24 8:44:00 EDT, Dry We 11/24/19 active hydroCHLOROthiazide (HYDRODIURIL) 25 MG tablet Take 1 tablet (25 mg total) by mouth every morning. 11/24/19 24 active traZODone (DESYREL) 50 MG tablet See Instructions, 1/2 tab by mouth daily, # 45 tablet, Refills 3, Tot. Refills 3, Maintenance, 07/20/24 9:10:00 AM EDT, Instructions Replace Required Details, Route to Pharmacy Electronically, [facility], Partial fill upon patient request if the prescription is for a schedule II opioid drug 11/24/19 24 active traZODone (DESYREL) 50 MG tablet 1 tablet (50 mg total) nightly. 11/24/19 24 active omeprazole 40 mg capsule,delayed release 11/05/19 20 active metformin ER 500 mg tablet,extended release 24 hr 11/02/19 20 active azithromycin 250 mg tablet TAKE 2 TABLETS BY MOUTH TODAY, THEN TAKE 1 TABLET DAILY FOR 4 DAYS DIRECTED 025 completed clindamycin HCl 150 mg capsule TAKE 1 CAPSULE BY MOUTH THREE TIMES A DAY UNTIL FINISHED 025 completed clindamycin HCl 300 mg capsule TAKE 1 CAPSULE BY MOUTH FOUR TIMES A DAY UNTIL FINISHED DIRECTED 025 completed doxycycline monohydrate 100 mg capsule TAKE 1 CAPSULE BY MOUTH TWICE A DAY FOR 10 DAYS 025 completed doxycycline monohydrate 100 mg tablet TAKE 1 TABLET BY MOUTH TWICE A DAY FOR 7 DAYS 025 completed erythromycin 5 mg/gram (0.5 %) eye ointment APPLY 0.5 INCHES EYES, BOTH 4 TIMES A DAY 025 completed meloxicam 15 mg tablet active triamcinolone acetonide 40 mg/mL suspension for injection active lidocaine (PF) 10 mg/mL (1 %) injection solution active acetaminophen 325 mg tablet TAKE 3 TABLETS BY MOUTH EVERY 8 HOURS,X14 DAYS NEEDED FOR PAIN active benzonatate 100 mg capsule TAKE 1 CAPSULE BY MOUTH 3 TIMES A DAY FOR 7 DAYS active bupropion HCl XL 150 mg 24 hr tablet, extended release TAKE 1 TABLET BY MOUTH EVERY DAY active butalbital-acetaminophe n-caffeine 50 mg-300 mg-40 mg capsule TAKE 1 CAPSULE BY MOUTH EVERY 4 HOURS NEEDED active butalbital-acetaminophe n-caffeine 50 mg-325 mg-40 mg tablet TAKE 1 TABLET BY MOUTH EVERY 4 HOURS NEEDED FOR PAIN active chlorhexidine gluconate 0.12 % mouthwash RINSE WITH 1/2 OUNCE (15ML) BY MOUTH TWICE A DAY DIRECTED. SPIT, DO NOT SWALLOW active cholecalciferol (vitamin D3) 10 mcg (400 unit) tablet Take 400 Units by mouth daily. active codeine 10 mg-guaifenesin 100 mg/5 mL oral liquid TAKE 5 ML BY MOUTH EVERY 6 HOURS NEEDED FOR COUGH active cyanocobalamin (vit B-12) 1,000 mcg tablet TAKE 1 TABLET BY MOUTH EVERY DAY active cyanocobalamin (vit B-12) 500 mcg tablet Take 500 mcg by mouth daily. active cyclobenzaprine 10 mg tablet Take 10 mg by mouth 3 (three) times a day as needed for muscle spasms. active diclofenac 1 % topical gel PLEASE SEE ATTACHED FOR DETAILED DIRECTIONS active enoxaparin 40 mg/0.4 mL subcutaneous syringe INJECT 0.4 MLS SUBCUTANEOUSLY EVERY 12 HOURS FOR 14 DAYS active epinephrine 0.3 mg/0.3 mL injection, auto-injector INJECT 1 DOSE (0.3 MG) INTRAMUSCULARLY ONCE active ferrous gluconate 324 mg (38 mg iron) tablet TAKE 1 TABLET BY MOUTH EVERY DAY active fluticasone propionate 50 mcg/actuation nasal spray,suspension SPRAY 2 SPRAYS INTO EACH NOSTRIL EVERY DAY active hydrochlorothiazide 25 mg tablet Take 25 mg by mouth daily. active ibuprofen 600 mg tablet TAKE 1 TABLET BY MOUTH THREE TIMES A DAY NEEDED FOR PAIN active ibuprofen 800 mg tablet TAKE 1 TABLET BY MOUTH EVERY 6 HOURS active lisinopril 10 mg tablet TAKE 1 TABLET BY MOUTH EVERY DAY active methocarbamol 750 mg tablet TAKE 1-2 TABLET(S) BY MOUTH 3 TIMES A DAY NEEDED FOR PAIN/SPASM, TO REPLACE TIZANIDINE active methylprednisolone 4 mg tablets in a dose pack TAKE 6 TABLETS ON DAY 1 DIRECTED ON PACKAGE AND DECREASE BY 1 TAB EACH DAY FOR A TOTAL OF 6 DAYS active metoprolol succinate ER 25 mg tablet,extended release 24 hr TAKE 1 TABLET BY MOUTH EVERY DAY active naproxen 500 mg tablet,delayed release TAKE 1 TABLET BY MOUTH TWICE A DAY NEEDED FOR MILD PAIN active oseltamivir 75 mg capsule TAKE 1 CAPSULE BY MOUTH TWICE A DAY FOR 5 DAYS active oxycodone 5 mg tablet TAKE 1 TABLET BY MOUTH EVERY 4 HOURS NEEDED FOR SEVERE PAIN MAX DAILY AMOUNT 6 TABS active sertraline 100 mg tablet TAKE 2 TABLETS BY MOUTH EVERY DAY active tizanidine 2 mg capsule TAKE 1 CAPSULE B Y MOUTH THREE TIMES A DAY NEEDED FOR MUSCLE SPASM active tizanidine 2 mg tablet TAKE 1 TO 2 TABLE TS BY MOUTH EVERY 8 HOURS NEEDED FOR MODERATE PAIN FOR 7 DAYS active topiramate 50 mg tablet Take 50 mg by mo uth 2 (two) times a day. active trazodone 50 mg tablet TAKE 1 & 1/2 TO 2 TABLETS AT NIGHT FOR SLEEP active triamcinolone acetonide 0.1 % topical cream APPLY TO AFFECTED AREA 3 TIMES A DAY TOPICALLY active Wegovy 0.25 mg/0.5 mL subcutaneous pen injector INJECT 0.25MG EVERY WEEK, ROTATE INJECTION SITES active Wegovy 0.5 mg/0.5 mL subcutaneous pen injector INJECT 0.5 ML UNDER THE SKIN WEEKLY active Wegovy 1 mg/0.5 mL subcutaneous pen injector INEJCT 1 MG SUBCUTANEOUSLY EVERY WEEK IN THE ABDOMEN, THIGH, OR UPPER ARM active calcium carbonate (OS-SUMI) 600 MG tablet Take 1 tablet (600 mg total) by mouth every morning. active cetirizine (ZyrTEC) 10 MG tablet Take 10 mg by mouth daily. active cholecalciferol (CHOLECALCIFEROL) 10 MCG (400 UNIT) tablet Take 400 Units by mouth daily. active EPINEPHrine 0.3 mg/0.3 mL IJ auto-injection INJECT 1 DOSE (0.3 MG) INTRAMUSCULARLY ONCE active multivitamin Tab tablet Take 1 tablet by mouth every morning. active verapamil (CALAN-SR) 240 MG ER tablet Take 1 tablet (240 mg total) by mouth nightly. Swallow whole. Take with food. active Allergies Allergen Reaction Severity Comment Documented Date Source Statu s METFORMIN DIARRHEA 11/28/2024 [facility] active NUTS ANAPHYLAXIS 11/28/2024 [facility] active CIPROFLOXACIN ITCHING 2019 [facility] active LATEX SWELLING 2019 [facility] active PENICILLINS RASH/DERMATITIS 2019 [facility] a ctive VEGETABLE OIL UNKNOWN/PATIENT AND FAMILY UNABLE TO DEFINE 2019 [facility] active HYDROGENATED VEGETABLE OIL (HARD FAT) ENS_AONECT CIPRO ENS_AONECT Problems Problem Status Onset Date Problem Type Date of Resolution Source Osteoarthritis of left knee joint active 2025-04-27 ProblemAct [facility] Lateral epicondylitis of left humerus active 2019 ProblemAct [facility] Lipoma of left lower limb active 2025-04-27 ProblemAct [facility] Hypertension active 2024-11-28 ProblemAct [facility] Lateral epicondylitis of left elbow active 2019 ProblemAct [facility] Major depressive disorder, single episode, moderate active 2024-11-28 ProblemAct [facility] Vision changes active 2024-11-28 ProblemAct [facility] Chronic ethmoidal sinusitis active EncounterDiagnosisAct [facility] Right lower quadrant pain active 2025-01-09 ProblemAct [facility] Observed sleep apnea active 2024-11-28 ProblemAct [facility] Chronic maxillary sinusitis active EncounterDiagnosisAct [facility] Hepatic steatosis active 2024-11-28 ProblemAct [facility] Impaired fasting glucose active 2024-11-28 ProblemAct [facility] Recurrent sinusitis active 2024-11-28 ProblemAct [facility] Impaired glucose tolerance active 2024-11-28 ProblemAct [facility] Anxiety and depression active 2025-01-03 ProblemAct [facility] Migraines active 2024-11-28 ProblemAct [facility] Allergic rhinitis active 2025-01-09 ProblemAct [facility] Encounter for screening for other metabolic disorders active 2025-01-09 ProblemAct [facility] Severe obesity active 2024-11-28 ProblemAct [facility] Popliteal pain active 2024-11-28 ProblemAct [facility] Proteinuria active 2024-11-28 ProblemAct [facility] Intractable headache active 2025-01-09 ProblemAct [facility] History of pulmonary embolism active 2024-11-28 ProblemAct [facility] GERD (gastroesophageal reflux disease) active 2024-11-28 ProblemAct [facility] Immunizations Vaccine Date Source Lot Number Status Influenza Virus Trivalent Sp lit Vaccine (MDV) IM 07/20/2024 [facility] [id number] completed Influenza Virus Trivalent Sp lit Vaccine (MDV) IM 07/20/2024 [facility] [id number] completed Hepatitis B 03/15/2024 [facility] [id number] completed Hepatitis B 03/15/2024 [facility] [id number] completed Hepatitis B 01/22/2024 [facility] [id number] completed Hepatitis B 01/22/2024 [facility] [id number] completed Zoster Vaccine Recombinant (Shingrix) 01/22/2024 [facility] [id number] completed Zoster Vaccine Recombinant (Shingrix) 01/22/2024 [facility] [id number] completed Zoster Vaccine Recombinant (Shingrix) 09/17/2023 [facility] [id number] completed Zoster Vaccine Recombinant (Shingrix) 09/17/2023 [facility] [id number] completed Pneumococcal Conjugate 20-Valent 09/03/2023 [facility] [id number] completed Pneumococcal Conjugate 20-Valent 09/03/2023 [facility] [id number] completed Influenza Virus Trivalent Sp lit Vaccine (MDV) IM 07/15/2023 [facility] [id number] completed Influenza Virus Trivalent Sp lit Vaccine (MDV) IM 07/15/2023 [facility] [id number] completed Influenza Virus Trivalent Sp lit Vaccine (MDV) IM 07/16/2022 [facility] [id number] completed Influenza Virus Trivalent Sp lit Vaccine (MDV) IM 07/16/2022 [facility] [id number] completed Influenza Virus Trivalent Sp lit Vaccine (MDV) IM 08/18/2021 [facility] [id number] completed Influenza Virus Trivalent Sp lit Vaccine (MDV) IM 08/18/2021 [facility] [id number] completed Influenza Virus Trivalent Sp lit Vaccine (MDV) IM 07/14/2018 [facility] [id number] completed Influenza Virus Trivalent Sp lit Vaccine (MDV) IM 07/14/2018 CCT [id number] completed Influenza Virus Trivalent Sp lit Vaccine (MDV) IM 07/14/2017 [facility] [id number] completed Influenza Virus Trivalent Sp lit Vaccine (MDV) IM 07/14/2017 CCT [id number] completed Influenza Virus Trivalent Sp lit Vaccine (MDV) IM 07/06/2016 CCT [id number] completed Influenza Virus Trivalent Sp lit Vaccine (MDV) IM 07/06/2016 CCT [id number] completed Tdap 07/06/2016 CCT [id number] completed Tdap 07/06/2016 CCT [id number] completed Influenza Virus Trivalent Sp lit Vaccine (MDV) IM 10/07/2012 CCT UNK completed Influenza Virus Trivalent Sp lit Vaccine (MDV) IM 10/07/2012 CCT UNK completed Tdap 02/13/2011 CCT [id number] completed Tdap 02/13/2011 CCT [id number] completed Influenza Virus Trivalent Sp lit Vaccine (MDV) IM 07/04/2009 CCT UNK completed Influenza Virus Trivalent Sp lit Vaccine (MDV) IM 07/04/2009 CCT UNK completed Td, Unspecified 03/19/2008 CCT [id number] completed Td, Unspecified 03/19/2008 CCT [id number] completed Td, Unspecified 08/12/1994 CCT UNK completed Td, Unspecified 08/12/1994 CCT UNK completed Encounters Encounter Type Encounter Reason Primary Diagnosis Location Date Ambulatory [facility] 06/26/2025 Ambulatory [facility] 05/23/2025 Ambulatory [facility]op [facility] 05/21/2025 Ambulatory [facility] 04/30/2025 Ambulatory [facility] 04/27/2025 Ambulatory [facility] 04/27/2025 Ambulatory [facility] 04/27/2025 Ambulatory [facility] 04/25/2025 Ambulatory [facility] 04/25/2025 Ambulatory [facility] 04/25/2025 Ambulatory [facility] 04/25/2025 Ambulatory [facility] 04/17/2025 Ambulatory Post-op Post-op [facility] 02/15/2025 Ambulatory Post-op [facility]op [facility] 02/01/2025 Ambulatory Chronic sinusitis, unspecified Chronic sinusitis, unspecified [facility] 01/17/2025 Ambulatory Nasal Congestion [facility] 01/09/2025 Ambulatory Encounter for other preprocedural examination Encounter for other preprocedural examination [facility] 01/03/2025 Ambulatory Nasal Congestion [facility] 11/28/2024 Care Team Organization Name Specialty Phone Email Start Date End Da nolan [facility] Primary Care 12/13/2024 06/19/2025 [facility]IL [facility] Primary Care 11/28/2024 [facility] 11/21/2024
--- OUTSIDE RECORDS SUMMARY | 2025-07-25 08:20 | XMS_ITS | Encounter Summary ---
Author Organization [facility] Address [address] [place] [address] Care Team Providers Care Collar Baster Jumpbasting Name Role Phone Annamarie Feliciano MD Primary Care Provider +1- [phone] Encounter Details Date Type Department Care Team (Late st Contact Info) Description 12/21/2024 CC Surg Order [facility] [place] [address] [place] [address] [place] [address] Kris Moore MD [address] [place] [address] Social History Tobacco Use Types Packs/Day [...] AM EST documented as of this encounter Functional Status * AUDIT-C Score Answer Date of Assessment Author 0 12/22/2024 5:55 PM EDT Josiane Rick RN * Question Answer Date of Assessment Author AUDIT-C Total Score - Female 0 12/22/2024 5:55 PM EDT Jeff Rick RN Q1: How often do you have a drink containing alcohol? Never 12/22/2024 5:55 PM EDT Jeff Rick RN Q2: How many drinks containing alcohol do you have on a typical day when you are drinking? Patient does not drink 12/22/2024 5:55 PM EDT Jeff Rick RN Q3: How often do you have six or more drinks on one occasion? Never 12/22/2024 5:55 PM EDT Jeff Rick RN documented as of this encounter Plan of Treatment Not on file documented as of this encounter Visit Diagnoses Not on filedocumented in this encounter Care Teams Collar Baster Jumpbasting Relationship Specialty Start Date End Date Annamarie Feliciano MD [address] [place] [address] PCP - General Internal Medicine 11/28/24 documented as of this encounter
--- OUTSIDE RECORDS SUMMARY | 2025-07-25 08:20 | XMS_ITS | Encounter Summary ---
Author Organization [facility] Address [address] [place] [address] Care Team Providers Care Sewage Plant Operator Name Role Phone Annamarie Feliciano MD Primary Care Provider +1- [phone] Encounter Details Date Type Department Care Team (Late st Contact Info) Description 01/05/2025 Scanned Document [facility] [address] [place] [address] [place] [address] Kris Moore MD [address] [place] [address] Social History Tobacco Use Types Packs/Day [...] on filedocumented in this encounter Care Teams Sewage Plant Operator Relationship Specialty Start Date End Date Annamarie Feliciano MD [address] [place] [address] PCP - General Internal Medicine 11/28/24 documented as of this encounter
--- OUTSIDE RECORDS SUMMARY | 2025-07-25 08:20 | XMS_ITS | Encounter Summary ---
Author Organization [facility] Address [address] [place] [address] Care Team Providers Care Gamb Cutter Name Role Phone Annamarie Feliciano MD Primary Care Provider +1- [phone] Encounter Details Date Type Department Care Team (Late st Contact Info) Description 12/19/2024 Scanned Document [facility] [address], [place] [address] Kris Moore MD [address] [place] [address] Social History Tobacco Use Types Packs/Day Years [...] on filedocumented in this encounter Care Teams Gamb Cutter Relationship Specialty Start Date End Date Annamarie Feliciano MD [address] [place] [address] PCP - General Internal Medicine 11/28/24 documented as of this encounter
== END 2025-07-25 09:23 | disposition home or self-care (01) ==
LOC: HO.HMCHD 08:15
PROVIDERS: PCP Internal Medicine; Visit Provider Internal Medicine
DX: I10 Essential (primary) hypertension (principal); R73.01 Impaired fasting glucose; D64.9 Anemia, unspecified; G43.909 Migraine, unspecified, not intractable, without status migrainosus; G47.33 Obstructive sleep apnea (adult) (pediatric); F90.9 Attention-deficit hyperactivity disorder, unspecified type; F32.A Depression, unspecified; K21.9 Gastro-esophageal reflux disease without esophagitis; D51.9 Vitamin B12 deficiency anemia, unspecified

== ENCOUNTER 2025-09-14 13:39 | Outpatient (AMB) | payer OTHER, SELFPAY ==
--- OUTSIDE RECORDS SUMMARY | 2024-04-05 03:40 | XMS_ITS ---
Author Organization [facility] Address [address] [place] [address] Care Team Providers Care Concierge Name Role Phone ANIL POSEY Primary Care Provider Kathryn Do Unavailable [phone] Allergies Allergen (clinical drug ingredient) Drug/Non Drug Allergy documented on EMR Reaction Allergy Type Onset Date Status Latex Latex Unknown Allergy Active Penicillin Unknown Drug Allergy Active REASON FOR VISIT Annual (YELLOW FORM DONE) Medications Medication SIG (Take, Route, Frequency, Duration) Notes Start Date End Date Status Metoprolol Tartrate 25MG 1 ORAL daily; Duration: -3 10/30/2013 Active hydroCHLOROthiazide 25mg 1 ORAL daily; Duration: -3 10/30/2013 Active Vitamin B12 1000 MCG 1 tablet Orally Onc e a day Active metFORMIN HCl 500 MG 1 tablet with a angel l Orally twice a day Active Vitamin D Active Sertraline HCl 50 MG 1 tablet Orally Onc e a day; Duration: 30 day(s) Active Flax Seed Oil 1000 MG as directed Orally Active Cetirizine HCl 10 MG TAKE 1 TABLET BY MOUTH EVERY DAY Oral; Duration: 30 Active Spironolactone 25 MG 1 tablet Orally; Duration: 30 day(s) Active traZODone HCl 50 MG 1 tablet at bedtime as needed Orally Once a day; Duration: 30 day(s) Active Omeprazole 40MG 1 ORAL twice a day 10/30/2013 Active Topiramate 50MG 1 ORAL daily; Duration: -3 10/30/2013 Active Srnejglzcv-QTBS-Ygvjguqa 50-325-40 MG TAKE 2 TABLETS BY MOUTH 3 TIMES A DAY NEEDED DO NOT EXCEED 6 TABS DAILY Oral; Duration: 4 Active Social History Sexual History Question Answer Notes Had sex in the past 12 months (vaginal, oral, or anal)? Yes with Men only Use protection? Yes How often? All of the time Have you ever had a Sexually transmitted disease ? No Encounters Encounter Location Date Provider Diagnosis Total [address] [place] [address] 04/05/2024 Kathryn Galo Plan Of Treatment No Information Progress Notes * MARIANNA SNELLDOB:1970 (54 yo F)Acc No.[id number]:04/05/2024 PROGRESS NOTES Patient: MARIANNA ELLIOTT Appointment Provider: Amy Galo M.D. :1970 A ge:53 Y S ex:Female Date:04/05/2024 Address:[address] [place] [address] [address] [facility] Pcp:ANIL POSEY Subjective: * Chief Complaints: * 1 . Annual (YELLOW FORM DONE). * Medical History: E xcessive and frequent menstruation with regular cycle, Gastro-esophageal reflux disease without esophagitis, Essential (primary) hypertension, Migraine, unspecified, not intractable, without status migrainosus, Menopausal and female climacteric states, Leiomyoma of uterus, unspecified, Functional urinary incontinence, Morbid (severe) obesity due to excess calories. 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 S exual activity c urrently sexually active. L ast Pap Smear: NIL, NEG HPV, 01/03/16 ASCUS, NEG HRHPV, 01/01/2015 , neg. M ammogram: < 50% density, 08/31/22 Breast Tissue is Almost Entirely Fatty, 05/20/21 < 50% density, 09/14/19 < 50% density, 01/18/16, < 50% density. L MP and menses h ysterectomy. B irth Control: h ysterectomy. C olonoscopy 2 019. * OB History: T otal pregnancies 4 . T otal living children 3 . M iscarriage(s) 1 . * Surgical History: T AB , RAMYA 02/17/21. * Hospitalization/Major Diagno stic Procedure: S ee Surgical Hx . * Family History: M other: alive, diagnosed with Unspecified essential hypertension. F ather: alive, diagnosed with Unspecified essential hypertension. * Social History: T obacco Use: T obacco Use/Smoking A re you a: nonsmoker. S exual History: S exual History H ad sex in the past 12 months (vaginal, oral, or anal)? Y es w ith M en only U se protection? Y es H ow often? A ll of the time H ave you ever had a Sexually transmitted disease? N o Details of Sexual History A re you sexually active? Y es A re you having any sexual problems? N o H ave you had any sexually transmitted diseases (STDs)? N o D rugs/Alcohol: D rugs H ave you used drugs other than those for medical reasons in the past 12 months? N o Alcohol Screen (Audit-C) D id you have a drink containing alcohol in the past year?: No, Points: 0. M iscellaneous: C hildren: yes, 3. Exercise: yes, walking. Living with: spouse. Marital status: . Natural support system: yes. Occupation: [employer]. Sexually active: yes, monogamous relationship. Travel outside of the [place]: no. * Medications: T aking Spironolactone 25 MG Tablet 1 tablet Orally , Taking traZODone HCl 50 MG Tablet 1 tablet at bedtime as needed Orally Once a day , Taking Flax Seed Oil 1000 MG Capsule as directed Orally , Taking Cetirizine HCl 10 MG Tablet TAKE 1 TABLET BY MOUTH EVERY DAY Oral , Taking Sertraline HCl 50 MG Tablet 1 tablet Orally Once a day , Taking Vitamin D , Taking Vitamin B12 1000 MCG Tablet Extended Release 1 tablet Orally Once a day , Taking metFORMIN HCl 500 MG Tablet 1 tablet with a meal Orally twice a day , Taking hydroCHLOROthiazide 25mg 30 1 ORAL daily , Taking Metoprolol Tartrate 25MG 60 1 ORAL daily , Taking Omeprazole 40MG 30 1 ORAL twice a day , Taking Topiramate 50MG 60 1 ORAL daily , Taking Donqnfxqgn-JWJD-Mbghwbjw 50-325-40 MG Tablet TAKE 2 TABLETS BY MOUTH 3 TIMES A DAY NEEDED DO NOT EXCEED 6 TABS DAILY Oral * Allergies: L atex: Allergy, Penicillin: Allergy. Objective: * Vitals: Assessment: Plan: * Treatment: * Images: Billing Information: * Visit Code: * Procedure Codes: * Electronic signature of Gen Galo MD on 09/14/2025 at 07:07 PM EST Sign off status: Pending * Appointment Provider: Amy Galo M.D. Date: 0 04/05/2024 Generated for Derik tran/Juan David/Antony on: 1 11/15/2024 07:07 PM EST
--- OUTSIDE RECORDS SUMMARY | 2025-08-29 09:30 | XMS_ITS ---
Author Organization [facility] [address] Address [address] [place] [address] Care Team Providers Care Web Page Designer Name Role Phone Dr Enoc Primary Care Provider CAMILO Navarrete Unavailable [phone] Encounters Encounter Location Date Provider Diagnosis [facility] [address] [place] [address] 08/29/2025 CAMILO BRANNON Plan Of Treatment Next Appt Details Provider Name:CAMILO Williamson, 09/25/2025 02:45:00 PM, [address], [address], [place], [address], Progress Notes * Ruth SNELLDOB:1970 (54 yo F)Acc No.[id number]:08/29/2025 Patient: Ruth Turner Provider: Everton BRANNON PA-C :1970 A ge:54 Y S ex:Female Date:08/29/2025 [facility] [facility] [place] [place] Pcp:Dr Stubbs * Electronic signature of DOMINGA BRANNON PA-C on 09/14/2025 at 07:08 PM EST Sign off status: Pending * Provider: Everton BRANNON PA-C Date: 10/29/2024 Generated for Derik tran/Juan David/eTransmitting on: 11/15/2024 07:08 PM EST
--- OUTSIDE RECORDS SUMMARY | 2025-09-10 05:00 | XMS_ITS ---
Author Organization [facility] [address] Address [address] [place] [address] Care Team Providers Care Cytology Manager Name Role Phone Dr Enoc Primary Care Provider CAMILO Navarrete Unavailable [phone] Encounters Encounter Location Date Provider Diagnosis [facility] [address] [place] [address] 09/10/2025 CAMILO BRANNON Plan Of Treatment Next Appt Details Provider Name:CAMILO Williamson, 09/25/2025 02:45:00 PM, [address], [address], [place], [address], Progress Notes * Ruth SNELLDOB:1970 (54 yo F)Acc No.[id number]:09/10/2025 Patient: Ruth Turner Provider: Everton BRANNON PA-C :1970 A ge:54 Y S ex:Female Date:09/10/2025 [facility] [facility] [place] [place] Pcp:Dr Stubbs * Electronic signature of DOMINGA BRANNON PA-C on 09/14/2025 at 07:07 PM EST Sign off status: Pending * Provider: Everton BRANNON PA-C Date: 1 11/11/2024 Generated for Derik tran/Juan David/eTransmitting on: 1 11/15/2024 07:07 PM EST
--- NOTE | 2025-09-14 13:43 | MHC.PC.OV ---
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: No Accompanied by: Self / Same As Patient Allergies ciprofloxacin (From Cipro) Allergy (Intermediate, Verified 09/14/25 13:44) rash/itching apple Allergy (Mild, Verified 09/14/25 13:44) unknown latex Allergy (Mild, Verified 09/14/25 13:44) unknown nut - unspecified Allergy (Mild, Verified 09/14/25 13:44) unknown orange Allergy (Mild, Verified 09/14/25 13:44) unknown peach Allergy (Mild, Verified 09/14/25 13:44) unknown Penicillins Allergy (Mild, Verified 09/14/25 13:44) unknown pineapple Allergy (Mild, Verified 09/14/25 13:44) unknown Seasonal Allergies Allergy (Mild, Verified 09/14/25 13:44) unknown adhesive tape Adverse Reaction (Intermediate, Verified 09/14/25 13:44) Rash Medication List - Last Reconciled 09/14/25 by Annamarie Feliciano MD albuterol sulfate 90 mcg/actuation (Ventolin HFA) 2 puffs inhalation Q6H PRN bupropion HCl XL (Wellbutrin XL) 150 mg PO QAM igjiqocrsn-ugwyalcnbz-juk-cod 34-295-13-30 mg 1 cap PO Q4H PRN clonidine HCl 0.1 mg PO BEDTIME CPAP (CPAP Machine/Device) As directed cyanocobalamin (vitamin B-12) 1,000 mcg PO DAILY dextroamphetamine-amphetamine 15 mg ER 1 cap PO QAM epinephrine (EpiPen) 0.3 mg IM Q10M PRN ferrous gluconate 324 mg PO DAILY fluticasone propionate 50 mcg/actuation 1 spray intranasal BID galcanezumab-gnlm (Emgality Pen) mg subcut QMONTH hydrochlorothiazide 25 mg PO DAILY lisinopril 10 mg PO DAILY magnesium glycinate mg PO metoprolol succinate ER 25 mg PO DAILY omeprazole 40 mg PO BID sertraline 200 mg PO DAILY sucralfate (Carafate) 1 g PO TID 10 days tirzepatide (Mounjaro) 2.5 mg subcut QWEEK trazodone 75 mg PO BEDTIME PRN Tobacco use date assessed: 07/25/25 Dental Screening Dental Screen Date: 07/25/25 HPI HPI Comments History of Present Illness Details The patient is a 54 year old female presenting for follow-up for abdominal pain and medication management. Gastritis/Abdominal Pain: The patient has a history of abdominal pain, for which she is on omeprazole twice daily and was prescribed carafate. Earlier this week she called office with resurgence of symptoms, started carafate this week. She reports the carafate seems to be helping, and her generalized abdominal pain has settled. She experiences epigastric pain and nausea a couple of times, especially if not careful with her diet, and has been mainly eating noodles. She has had persistent tenderness in the right upper quadrant. Longstanding issue for years, had improved after cholecystectomy. Constipation: The patient reports a history of constipation, which predates starting carafate. She takes Senokot at least four times a week but still has pellet-like stools and does not have regular bowel movements. Prediabetes: Her last hemoglobin A1c in February was 6.3%. Migraine: The patient has a history of migraines and was previously prescribed butalbital. Diagnostic Results: - [facility] panels from earlier this week: - White blood cell count: 11.4 K/uL (high normal) - Hemoglobin: 13.4 g/dL (normal) - Platelet count: 386 K/uL (normal) - Potassium: 4.1 mmol/L - Liver function tests: Normal - Iron: Normal - Hemoglobin A1c: 6.1% (improvement from 6.3% in February) - Magnesium: 1.9 mg/dL - BUN/creatinine ratio: Slightly high, suggestive of dehydration [facility] Medical History (Updated 09/14/25 @ 18:10 by Annamarie Feliciano MD) RUQ abdominal pain Epigastric pain B12 deficiency anemia Leg cramps Anemia GERD (gastroesophageal reflux disease) Migraines Depression ADHD Impaired fasting glucose 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 Pulmonary embolism DVT (deep venous thrombosis) Surgical History (Updated 09/14/25 @ 18:13 by Annamarie Feliciano MD) History of cholecystectomy H/O cystoscopy H/O bilateral salpingectomy H/O total hysterectomy Hx of colonoscopy (~11/23/18) Family History Mother HTN (hypertension) Diabetes Father HTN (hypertension) Diabetes Social History (Updated 05/15/21 @ 13:27 by Zenobia Agee PA-C) Housing: House Patient Tobacco Use Status: Never used Tobacco e-Cigarette/Vaping Use: Never Used service: No Current occupational status: employed Current occupation: [employer] Medical Records Questionnaire PHQ-9 Over the last 2 weeks, how often have you been bothered by any of the following problems? 1. Little interest or pleasure in doing things: more than half the days 2. Feeling down, depressed, or hopeless: not at all 3. Trouble falling or staying asleep, or sleeping too much: nearly every day 4. Feeling tired or having little energy: several days 5. Poor appetite or overeating: several days 6. Feeling bad about yourself - or that you are a failure or have let yourself or your family down: not at all 7. Trouble concentrating on things, such as reading the newspaper or watching television: nearly every day 8. Moving or speaking so slowly that other people could have noticed. Or the opposite - being so fidgety or restless that you have been moving around a lot more than usual: not at all 9. Thoughts that you would be better off or of hurting yourself in some way: not at all Total score: 10 Depression Screening Interpretation: Positive Depression Screening Done: Yes 89073 - PHQ-9 Billing: Yes Source: Developed by Drs. Aly Buchanan, Elma Driver, Aamir Beaver and colleagues, with an educational ez from [employer]. AUDIT C Alcohol Use Questionnaire (AUDIT-C) 1. How often do you have a drink containing alcohol?: Never 3. How often do you have six or more drinks on one occasion?: Never Total Score: 0 Review of Systems Narrative Review of Systems - General: Reports feeling cold, particularly in the lower half of her body. - Gastrointestinal: Reports resolved generalized abdominal pain, but notes tenderness remains in the right upper quadrant. - Gastrointestinal: Reports experiencing nausea a couple of times and has been careful with her diet. - Gastrointestinal: Reports ongoing constipation with pellet-like stools despite taking Senokot. - Neurological: Reports migraines. Physical exam (Primary Care) Vital Signs: Last Vital Signs Temp 96.8 F 09/14/25 13:44 Pulse 68 09/14/25 13:44 Resp 16 09/14/25 13:44 BP 112/70 09/14/25 13:44 Pulse Ox 96 09/14/25 13:44 Oxygen Delivery Method Room Air 09/14/25 13:44 BMI result Body Mass Index 37.9 Tobacco/Smoking Status: Tobacco use Status Tobacco use date assessed 07/25/25 09/14/25 13:55 Patient Tobacco Use Status Never used Tobacco 09/14/25 13:55 e-Cigarette/Vaping Use Never Used 09/14/25 13:55 PHQ-9: PHQ-9 Score PHQ-9: Total score 10 09/14/25 13:55 Depression Screening Interpretation: Positive Narrative Physical Exam - Cardiovascular: Normal heart sounds with a soft murmur noted. - Respiratory: Lungs are clear on auscultation. - Abdomen: Normal bowel sounds. Abdomen is not distended. Tenderness to palpation in the right upper quadrant. No tenderness in other quadrants. Coding Level of Care Code Est Pt Level 4 (11283) Add On Problem Visit Only Diagnoses Gastroesophageal reflux disease without esophagitis K21.9 Esophagitis presence: without esophagitis Epigastric pain R10.13 Impaired fasting glucose R73.01 Additional Codes PHQ-9 - 70009 - PHQ-9 Billing: Yes ([id number]) Assessment & Plan Assessment & Plan (1) GERD (gastroesophageal reflux disease): Code(s): K21.9 - Gastro-esophageal reflux disease without esophagitis Category: Medical Qualifiers: Esophagitis presence: without esophagitis Qualified Code(s): K21.9 - Gastro-esophageal reflux disease without esophagitis (2) Epigastric pain: Code(s): R10.13 - Epigastric pain Category: Medical (3) Impaired fasting glucose: Code(s): R73.01 - Impaired fasting glucose Category: Medical Plan Assessment and Plan 1. Gastritis/Abdominal Pain - The patient's generalized abdominal pain has resolved, and her symptoms seem to be gastritis-related. - She is taking the maximum dose of omeprazole. - To rule out an ulcer, a referral will be placed for a GI consultation and an upper endoscopy. - She should continue taking carafate until she is seen by GI. 2. Constipation - The patient continues to experience constipation with pellet-like stools despite using Senokot. - I recommended adding MiraLAX once a week to her regimen 3. Prediabetes - The patient's hemoglobin A1c has improved to 6.1% from 6.3%. - No changes to the management plan were made at this time, but the improvement was noted. 4. Dehydration - Recent labs show a slightly elevated BUN/creatinine ratio and a high-normal white blood cell count, suggestive of mild dehydration. - I advised the patient to increase her water intake to 64 ounces daily. Plan see above assessment and plan section Patient Instructions - Continue taking omeprazole as prescribed. - Continue taking carafate until you see the commercial field inspector (GI doctor). - To help with constipation, add MiraLAX once a week to your Senokot. - Make sure to drink at least 64 ounces of water every day to stay hydrated. - A referral has been sent for you to see a GI specialist for an evaluation, which will likely include an endoscopy (a scope to look at your stomach). Orders: Referrals Gastroenterology Referral K21.9 - Gastro-esophageal reflux disease without esophagitis, R10.13 - Epigastric pain Medications: New epinephrine (EpiPen) for 2 doses 0.3 mg (0.3 mL) IM Q10M PRN 2 ea 11RF allergic reaction
[2025-09-14 13:44] VITALS: BP 112/70; PULSE 68; RESP 16; TEMP 36; O2SAT 96; BMI 37.9
--- OUTSIDE RECORDS SUMMARY | 2025-09-14 19:08 | XMS_ITS | Patient Health Record ---
Author Organization [facility] Address [address] [place] [address] Care Team Providers Care Courier Delivery Driver Name Role Phone ANIL POSEY Primary Care Provider Kathryn Do Unavailable [phone] Allergies Allergen (clinical drug ingredient) Drug/Non Drug [...] Once a day; Duration: 30 day(s) Active Cliuzeoulp-JLHA-Bimpaatt 50-325-40 MG TAKE 2 TABLETS BY MOUTH [...] Risk Notes Problem Excessive and frequent menstruation (299259504) Excessive and frequent menstruation with regular cycle (N92.0) Active confirmed Problem Urinary incontinence (562005111) Unspecified urinary incontinence (R32) Active confirmed Problem Dysuria (22620777) Dysuria (R30.0) Active confirmed Problem Morbid obesity (disorder) (906882005) Morbid (severe) obesity due to excess calories (E66.01) Active confirmed Problem Functional urinary incontinence (336085932) Functional urinary incontinence (R39.81) Active confirmed Problem Menopause (334427159) Menopausal and female climacteric states (N95.1) Active confirmed Problem Migraine (disorder) (26647558) Migraine, unspecified without mention of intractable migraine without mention of status migrainosus (346.90) Active confirmed Major Problem Benign essential hypertension (3757833) Essential hypertension, benign (401.1) Active confirmed Major Problem Esophageal reflux (897921951) Esophageal reflux (530.81) Active confirmed Major Problem Excessive and frequent menstruation (180072849) Excessive or frequent menstruation (626.2) Active confirmed Diag Problem Gynecological examination normal (771397729277277) Routine gynecological examination (V72.31) Active confirmed Problem Contraception care education (731505042) Other general counseling and advice for contraceptive management (V25.09) Active confirmed Diag Problem Insertion of intrauterine contraceptive device (22093440) Insertion of intrauterine contraceptive device (V25.1) Active [...] Insured Coverage Start Date Coverage End Date [facility] [address] [facility] [place] [id number] [phone] [id number] MARIANNA SNELL Self - patient is [...]
--- OUTSIDE RECORDS SUMMARY | 2025-09-14 19:08 | XMS_ITS | Encounter Summary ---
Author Organization [facility] Address [address] [place] [address] Care Team Providers Care Security Representative Name Role Phone Annamarie Feliciano MD Primary Care Provider [phone]- [phone] Encounter Details Date Type Department Care Team (Late st Contact Info) Description 02/15/2025 Scanned Document [facility] [address], [place] [address] Kris Moore MD [address] [place] [id number] Social History Tobacco Use Types Packs/Day Years [...] on filedocumented in this encounter Care Teams Security Representative Relationship Specialty Start Date End Date Annamarie Feliciano MD [address] [place] [address] PCP - General Internal Medicine 11/28/24 documented as of this encounter
--- OUTSIDE RECORDS SUMMARY | 2025-09-14 19:08 | XMS_ITS | Clinical Summary ---
Author Organization [facility] Prior to 03/03/25 Address [address] [place] [address] Care Team Providers Care Alarm Field Technician Name Role Phone Annamarie Feliciano MD Primary Care Provider [phone]- [phone] Allergies Active Allergy Reactions Criticality Noted Date [...] Group Subscriber ID Effective Dates Phone Address [facility] [id number] 2019-Present 1 [facility] [address] [place] [address] HMO Care Teams Alarm Field Technician Relationship Specialty Start Date End Date Annamarie Feliciano MD [address] [place] [address] PCP - General Internal Medicine 11/29/19
--- OUTSIDE RECORDS SUMMARY | 2025-09-14 19:08 | XMS_ITS | Clinical Summary ---
Author Organization [facility] Address [address] [place] [address] Phone Care Team Providers Care Bus Operator Name Role Phone Annamarie Feliciano MD [...] Replace Required Details, Route to Pharmacy Electronically, [facility]/pharmacy #[id number], Partial fill upon patient request if the... [...] Replace Required Details, Route to Pharmacy Electronically, [facility] ST[facility] [id number], 165, cm, 11/24/23 13:52:00 EST, H... 11/24/19 [...] in comments). 15 tablet 05/25/20 25 Active Social History Tobacco Use Types Packs/Day Years [...] Encounters Date Type Department Care Team (Late st Contact Info) Description 11/12/2025 10:30 AM EST Office Visit [facility] [place] [address] Maldonado Helms MD [address] [place] [phone] [email or web address] Health Maintenance Due Date Last Done Comments [...] topic Medical Devices Not on file Insurance [facility] Member Subscriber Plan / Payer (Ef fective 2023-Present) Name:Ruth Driver Relation to Subscriber:Self Name:Ruth Driver Payer ID:Not on file Type:PPO Address: [address] [employer] [facility] [employer] [facility] Member Subscriber Plan / Payer (Ef fective 2023-Present) Name:Ruth Driver Relation to Subscriber:Self Name:Ruth Driver Payer ID:Not on file Type:PPO Address: [address] [employer] [facility] Member Subscriber Plan / Payer (Ef fective 2023-Present) Name:Ruth Driver Relation to Subscriber:Self Name:Ruth Driver Payer ID:Not on file Type:PPO Address: [address] [place] [address] Care Teams Bus Operator Relationship Specialty Start Date End Date Annamarie Feliciano MD PCP - General Internal Medicine 06/01/19 Additional Source Comments The information contained in this document represents components of the legal health record. It is not the complete legal health record.[facility]
--- OUTSIDE RECORDS SUMMARY | 2025-09-14 19:08 | XMS_ITS | Encounter Summary ---
Author Organization [facility] Address [address] [place] [address] Care Team Providers Care Structural Iron Erector Name Role Phone Annamarie Feliciano MD Primary Care Provider [phone]- [phone] Encounter Details Date Type Department Care Team (Late st Contact Info) Description 12/19/2024 Scanned Document [facility] [address], [place] [address] Kris Moore MD [address] [place] [id number] Social History Tobacco Use Types Packs/Day Years [...] on filedocumented in this encounter Care Teams Structural Iron Erector Relationship Specialty Start Date End Date Annamarie Feliciano MD [address] [place] [address] PCP - General Internal Medicine 11/28/24 documented as of this encounter
--- OUTSIDE RECORDS SUMMARY | 2025-09-14 19:08 | XMS_ITS | Data Portability ---
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 4. Fnan-ujs-tzhjsoi anti-inflammatory medications with appropriate GI precautions or Tylenol may be helpful in controlling intermittent symptoms of pain. 5. An assistive device such as a cane may be helpful in unloading the joint. We also discussed other interventions including therapeutic injections including cortisone and viscosupplementat ion. Cortisone comes in two different preparations: 1. Quick release, typically in the form of Depomedrol. 2. Slow release preparation called Zilretta (this requires insurance pre authorization) Viscosupplementat ion gel injection . Common preparations include Synvisc, Euflexxa, Durolane, Supartz (these all require insurance pre authorization) We also discussed the possibility of surgical intervention if symptoms persist. We discussed arthroscopic intervention as well as total knee arthroplasty. The patient understands that the majority of patients do not require surgical management for their symptomatic arthritis. I have recommended a short consistent course of anti-inflammatory medication. Prescription for meloxicam sent to her [...] physical examination, test/diagnostic imaging, and treatment plan. [email or web address] Not available 04/27/2025 11:39:22 05/23/2025 05/23/2025 I [...] physical examination, test/diagnostic imaging, and treatment plan. [email or web address] Not available 05/23/2025 15:08:11 06/28/2025 06/28/2025 Improvement [...] physical examination, test/diagnostic imaging, and treatment plan. [email or web address] Not available 06/28/2025 16:28:08 08/27/2025 08/27/2025 I reviewed my findings with the patient today. Exam and imaging consistent with symptomatic osteoarthritis for both knees. I reviewed risk, benefits and side effects of cortisone injection and she would like injection for both knees today. Postinjection icing protocol reviewed. We again discussed the importance of weight loss and low impact exercise. Follow-up 3 months The patient was seen and evaluated by Giancarlo Morin PA-C in indirect conjunction with Vijay Liao MD. He agrees with history, physical examination, test/diagnostic imaging, and treatment plan. [email or web address] Not available 08/27/2025 16:04:44 Plan of Treatment Reminders Order Date Submit Date Provider Last Modified By Organization Details Last Modified Time Details Appointments FOLLOW UP 2025 10:15A M Giancarlo Morin PA-C Not available Not available Not available Lab None recorded. Referral None recorded. Procedures None recorded. Surgeries None recorded. Imaging XR, knee, 3 view 2024 025 [email or web address] [facility], [address], [place] [address], [place], [address], 09/03/2025 08:15:56 Medication Orders lidocaine (PF) 10 mg/mL (1 %) injection solution 2024 025 [email or web address] [id number], [address] [place] [address], [id number], 09/03/2025 08:15:56 triamcino lone acetonide 40 mg/mL suspensio n for injection 2024 025 [email or web address] [id number], [address] [place] [address], [id number], 09/03/2025 08:15:56 lidocaine (PF) 10 mg/mL (1 %) injection solution 2024 025 [id number], [address] [place] [address], [address], 09/03/2025 08:15:56 triamcino lone acetonide 40 mg/mL suspensio n for injection 2024 025 [email or web address] [id number], [address] [place] [address], [address], 09/03/2025 08:15:56 lidocaine (PF) 10 mg/mL (1 %) injection solution 2024 025 [email or web address] [id number], [address] [place], [address], 06/28/2025 16:16:14 triamcino lone acetonide 40 mg/mL suspensio n for injection 2024 025 [id number], [address] [place], [address], 06/28/2025 16:15:59 meloxicam 15 mg tablet 2024 025 [id number], [address] [place], [address], 06/28/2025 16:16:28 Patient TargetsNo targets recorded. Patient Instructions Encounter Date Encounter Id Patient Instructions Last Modified By Organization Details Last Modified Time 08/27/2025 [id number] halle Raymond al and sunrise views of the right knee obtained 08/27/2025 reveal mild joint space narrowing at both medial and lateral compartments. Moderate patellofemoral joint space narrowing with periarticular osteophyte formation. Not available 08/27/2025 15:59:38 Reason for Referral None Reported. Results Created Date Observation Date Name Description Value Unit Range Abnormal Flag Note LastModifiedBy Organization Detail LastModifiedTime 04/25/2003/31/2025 US, duple x, venou s, lower extre mity No observ ation record ed. [email or web address] [facility] ([facility]) [address] [facility], [place], [address], 07/17/2025 09:23:53 04/27/20 imagi ng/di agnos tic resul t No observ ation record ed. [email or web address] Not Available 04/27 14:33:18 Result Notes None recorded. Problems Name Problem SNOMED Code Status Onset Date Resolution Date Notes Provider Name and Address Organization Details Recorded Time Left lateral elbow tendinopa thy 75873592186 9100 Active 2019 Lateral epicondyl itis of left elbow Not Available [facility] 00:41:23 Osteoarth ritis of left knee joint 21710376382 9109 Active [address], [place], [address] , [place] [facility] 08:41:23 Lipoma of left lower limb 29915820127 [address]48 Active [address], [place], [address] , [place] [facility] 08:41:39 Osteoarth ritis of right knee joint 10613476348 9100 Active [address], [place], [address] , [place] [facility] 16:22:58 Problem Notes None recorded. Procedures Surgical History Date Name Laterality Status Provider Name and Address Organization Details Recorded Time 08/27/20 25 BLW Knee Asp/Inj w/US completed [address], [place], [address], [place] [facility] 08/27/2025 16:21:55 05/23/20 25 BLW Knee Asp/Inj w/US completed [address], [place], [address], [place] [facility] 05/23/2025 15:07:42 hysterectomy completed Brooke Schulte [place] [facility] 04/27/2025 11:26:08 Bariatric Surgery completed Brooke Schulte [place] [facility] 04/27/2025 11:26:30 Gallbladder Surgery completed Brooke Scuhlte [place] [facility] 04/27/2025 11:26:47 Imaging Results None recorded. Procedure Notes None recorded. Medical Equipment None Reported. Allergies Allergen ID Allergen Name Allergen Category Reaction Reaction Severity Criticality Documentation Date Start Date Code Code System Note Provider Name and Address Organization Details Recorded Time 330847 metformin medicatio n Not available Not available Not available 08/27/2025 6809 RxNorm Not Available josh - External Data Service - prod 5 05:02:45 29407 Product containin g penicilli n (product) medicatio n Not available Not available Not available 04/27/2025 78043 8001 SNOMED Brooke Schulte null, [place] [facility] 5 11:10:01 96502 latex environme nt,medica tion Not available Not available Not available 04/27/20251996 37523 91 RxNorm Brooke Schulte null, [place] [facility] 5 11:10:01 86038 Cipro medicatio n Not available Not available Not available 04/27/2025 39546 3 RxNorm Brooke hinojosa, [place] [facility] 5 11:10:14 24993 hydrogena asa vegetable oil food,medi cation Not available Not available Not available 06/26/20252019 97626 25 RxNorm Not Available [facility] 5 01:12:18 98925 ciproflox acin medicatio n Not available Not available Not available 06/26/20252019 2551 RxNorm Not Available [facility] 5 01:12:18 Medications Name Sig Start Date Stop Date Status Note LastModified by Organization Details LastModified Time cyclobenzap rine 10 mg tablet Take 10 mg by mouth 3 (three) times a day as needed for muscle spasms. 08/27 completed Not Available Not Available Not Available clonidine HCl 0.1 mg tablet TAKE 1 TABLET BY MOUTH EVERYDAY AT BEDTIME active Not Available Not Available No t [...] TO 2 TABLETS AT NIGHT FOR SLEEP 08/27 completed Not Available Not Available Not Available azithromyci n 250 mg tablet TAKE [...] by mouth 2 (two) times a day. 08/27 completed Not Available Not Available Not Available triamcinolo ne acetonide 0.1 % topical [...] t Available benzonatate 100 mg capsule TAKE 2 CAPSULES BY MOUTH 3 TIMES A DAY NEEDED FOR COUGH FOR 14 DAYS active Not Available Not Available No t Available doxycycline monohydrate 100 mg capsule TAKE 1 CAPSULE BY MOUTH TWICE A DAY FOR 10 DAYS 04/25 completed Not Available Not Available Not Available triamcinolo ne acetonide 40 mg/mL suspension for injection Take 80 mg by injection route. 2024 active Not Available Not Available Not Avai lable erythromyci n 5 mg/gram (0.5 %) eye ointment APPLY 0.5 INCHES EYES, BOTH 4 TIMES A DAY 04/25 completed Not Available Not Available Not Available trazodone 150 mg tablet TAKE 1 TABLET BY MOUTH EVERYDAY AT BEDTIME active Not Available Not Available No t Available oseltamivir 75 mg capsule TAKE 1 [...] 6 (six) hours as needed for pain. 08/27 completed Not Available Not Available Not Available methylpredn isolone 4 mg tablets in a dose pack TAKE 6 TABLETS ON DAY 1 DIRECTED ON PACKAGE AND DECREASE BY 1 TAB EACH DAY FOR A TOTAL OF 6 DAYS 05/23 completed Not Available Not Available Not Available fluticasone propionate 50 mcg/actuati on nasal spray,suspe nsion 1 SPRAY INTRANASA LLY 2 TIMES A DAY ADMINISTE R INTO EACH NOSTRIL active Not Available Not Available No t Available metformin ER 500 mg tablet,exte nded release 24 hr 08/27 completed Not Available Not Available Not Available cholecalcif ty (vitamin D3) 10 mcg (400 [...] completed Not Available Not Available Not Available dextroamphe tamine-amph etamine ER 15 mg 24hr capsule,ext end release TAKE 1 CAPSULE BY MOUTH EVERY DAY IN THE MORNING active Not Available Not Available No t Available bupropion HCl XL 150 mg 24 [...] solution Take 2 mL by injection route. 2024 active Not Available Not Available Not Avai lable ferrous gluconate 324 mg (38 mg iron) [...] completed Not Available Not Available Not Available Mounjaro 2.5 mg/0.5 mL subcutaneou s pen injector INJECT 1 PEN UNDER THE SKIN ONCE WEEKLY active Not Available Not Available No t Available Vitals Date Recorded Body height Body mass index (BMI) Body weight Provider Name and Address Organization Details Last Updated DateTime 04/27/2025 165.1 cm 37.6 kg/m2 113193.[address] [place] [facility] 04/27/2025 11:16:49 Date Recorded Body height Provider Name an d Address Organization Details Last Updated DateTime 05/23/2025 165.[address] [place] [facility] 05/23/2025 14:55:19 Date Recorded Body height Provider Name an d Address Organization Details Last Updated DateTime 06/28/2025 165.1 cm [facility] 06/28/2025 16:15:34 Date Recorded Body height Body mass index (BMI) Body weight Provider Name and Address Organization Details Last Updated DateTime 08/27/2025 165.1 cm 39.8 kg/m2 108094.58 g [facility] [place] [facility] 08/27/2025 15:35:37 Social History None recorded. Functional Status Question Answer Note LastModified by Organizat ion Details LastModified Time Do you use any illicit or recreational drugs? No [email or web address] Information not available 04/27/2025 Do you or have you ever used any other forms of tobacco or nicotine? No [email or web address] Information not available 04/27/2025 What is your level of alcohol consumption? None [email or web address] Information not available 04/27/2025 Are you currently employed? 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 Family History Relationship Description Onset Age of this Age Resolved Age Notes LastModified by Organization Details LastModified Time Mother Hypertensive disorder [email or web address] Not available 2024 11:27:11 Mother Diabetes mellitus [email or web address] Not available 2024 11:27:22 Father Hypertensive disorder [email or web address] Not available 2024 11:27:11 Sister Hypertensive disorder Not available 2024 11:27:11 Sister Arthritis Not availabl e 04/27/2025 11:27:37 Notes:RHEUMATOLOGIC DISEASE- SISTER Medical History Condition Response Coronary Artery Disease N Gout N Hyperthyroidism N Blood Transfusion N MRSA N Emphysema N Hypothyroidism N Depression Y COPD N Pacemaker N Vascular Disease N Gastrointestinal Disease N Anxiety Disorder N Autoimmune disease N Arthritis N Cancer N Stroke N High Cholesterol N Neurologic Disorder N Liver Disease N Organ Transplant N Rheumatoid Arthritis N Arrhythmia N Fibromyalgia N Kidney Disease N Allergies/Hayfever Y Adverse Reaction to Anesthesia N Thyroid Problems N Anemia N Brain Injury N Heart Attack ([place]) N Osteopenia N Diabetes N Bleeding Disorder [...] ICD10 Code Diagnosis IMO Codes Diagnosis Note [id number] JONN BERRIOS [address] [address] 04/27/2025 10:49:57 04/27/2025 11:41:21 Osteoarthritis of left knee joint 5392695497 57220 M17.12 0299073 Lipoma of left lower limb 5485329337 859290 D17.24 86296603 [id number] JONN BERRIOS [address] [address] 05/23/2025 14:42:51 05/23/2025 15:12:55 Osteoarthritis of left knee joint 2751184765 26047 M17.12 2793564 Effusion o f joint of left knee 9156225436 88684 M25.067 4998329 [id number] JONN BERRIOS [address] [address] 06/28/2025 16:07:23 06/28/2025 16:21:17 Osteoarthritis of left knee joint 3325715174 45561 M17.12 3601240 [id number] GIANCARLO MORIN PA-C [employer] [address] [place] [address] [place] [address] 08/27/2025 15:12:47 08/27/2025 16:24:13 Osteoarthritis of left knee joint 8914132176 68403 M17.12 1817533 Pain of ri ght knee region 0133646784 62628 M25.561 04959086 Osteoarthr itis of right knee joint 7794486016 15622 M17.11 6422805 Health Concerns Section Related Observation LastModified by Organization Detai ls LastModified Time None Recorded Concern Status LastModified by Organization Details LastModified Time None Recorded Advance Directives Directive None Recorded Payers Insurance Date Sequence Insurance Name Policy Number Policy Lizarraga Covered Member ID Lizarraga Member ID Guarantor Name 08/24/2025 1 [facility] [id number] Ruth Driver [id number] Ruth Driver Notes Date Note Type Note Provider Name and Address Organization Details Recorded Time 04/27/2025 text/html Ruth Driver is a 54-year-old woman who presents to the office today due to complaints of left knee pain. She went to [facility] where she had x-rays on 03/31/2025 which [...] pain on average 7/10 is worst 10/10. GIANCARLO MORIN PA-C [address], [place], [address], [place] [facility] 04/27/2025 11:40:00 05/23/2025 text/html Ruth returns [...] on average 6/10 at its worst 10/10. [address], [place], [address], [facility] - [facility] 05/23/2025 15:08:56 06/28/2025 text/html Ruth returns [...] GIANCARLO MORIN PA-C [address], [place], [address], [facility] 06/28/2025 16:28:22 08/27/2025 text/html Ruth returns to the office today for follow-up of her left knee pain as well as new complaint of right knee pain. She did have cortisone injection for the left knee on 05/23/2025 which was helpful. She has been experiencing right knee pain for 1 to 2 weeks. She denies any new injury. She feels that there is swelling and maybe have fluid. She has difficulty going up and down stairs. The left knee has had some exacerbation recently and she feels some swelling as well. She is been taking Aleve which has been helpful. She describes the pain as constant moderate discomfort which is worse with movement. She takes Advil without significant relief. She rates her pain on average 1/10 is worst 7-10/10. GIANCARLO MORIN PA-C [address], [place], [address], [facility] - [facility] 08/27/2025 16:23:15 OBGyn Episode No OBEpisode recorded.
--- OUTSIDE RECORDS SUMMARY | 2025-09-14 19:08 | XMS_ITS | Clinical Summary ---
Author Organization [facility] Address [address] [place] [address] Care Team Providers Care International Coordinator Name Role Phone Annamarie Feliciano MD Primary Care Provider [phone] Allergies Active Allergy Reactions Criticality Noted Date Comments Adhesives/Tape Itching Low 11/28/2024 specifically Tegaderm Ciprofloxacin Itching Low 2019 Latex Itching,Rash/Dermati tis,S welling Medium 2019 Metformin Diarrhea Low 11/28/2024 Nuts Anaphylaxis High 11/28/2024 Penicillins Itching,Rash/Dermatitis Low 2019 Medications butalbital-ac etaminophen-c affeine (FioriCET) 50-300-40 mg Cap capsule TAKE 1 CAPSULE BY MOUTH EVERY 4 HOURS NEEDED 024 Active cetirizine (ZyrTEC) 10 MG tablet Take 1 tablet (10 mg total) by mouth daily as needed. Active EPINEPHrine 0.3 mg/0.3 mL IJ auto-injectio n INJECT 1 DOSE (0.3 MG) INTRAMUSCULARLY ONCE Active Emgality 120 MG/ML injection Inject 1 mL (120 mg total) under the skin every 28 days (4 weeks). 024 Active hydroCHLOROth iazide (HYDRODIURIL) 25 MG tablet Take 1 tablet (25 mg total) by mouth every morning. Active lisinopril (PRINIVIL,ZeS TRIL) 10 MG tablet Take 1 tablet (10 mg total) by mouth every morning. Active metoPROLOL SUCCINATE (TOPROL-XL) 25 MG 24 hr tablet Take 1 tablet (25 mg total) by mouth every morning. Active OMEprazole (PriLOSEC) 40 MG capsule Take 1 capsule (40 mg total) by mouth 2 (two) times a day before meals. Active traZODone (DESYREL) 50 MG tablet 1 tablet (50 mg total) nightly. Active Wegovy 0.25 MG/0.5ML Solution Auto-injector Inject 0.25 mg under the skin once a week. Active sertraline (ZOLOFT) 100 MG tablet Take 1.5 tablets (150 mg total) by mouth every morning. Active multivitamin Tab tablet Take 1 tablet by mouth every morning. Active calcium carbonate (OS-SUMI) 600 MG tablet Take 1 tablet (600 mg total) by mouth every morning. Active verapamil (CALAN-SR) 240 MG ER tablet Take 1 tablet (240 mg total) by mouth nightly. Swallow whole. Take with food. Active oxyCODONE (ROXICODONE) 5 MG immediate release tabletIndicat ions:Recurren t sinusitis Take 1 tablet (5 mg total) by mouth every 4 (four) hours as needed for severe pain. Max Daily Amount: 30 mg 10 tablet Active meloxicam (MOBIC) 15 MG tablet Take 15 mg by mouth. Active tiZANidine (ZANAFLEX) 2 MG tablet Active fluticasone (FloNASE) 50 mcg/spray nasal sprayIndicati ons:Chronic ethmoidal sinusitis SPRAY 2 SPRAYS INTO EACH NOSTRIL EVERY DAY 48 mL 1 Active fluticasone (FloNASE) 50 mcg/spray nasal sprayIndicati ons:Chronic ethmoidal sinusitis 2 sprays into each nostril daily. 1 each 3 2024 Discontinued Active Problems Problem Noted Date Diagnosed Date [...] Date Resolved Date Influenza A 11/02/2024 01/01/2025 Immunizations Immunization Administration Dates Next Due Hepatitis B 03/15/2024,01/22/2024 Influenza Virus Trivalent Sp lit Vaccine (MDV) IM 07/20/2024,07/15/2023,07/16/2022,2020,07/14/2018,07/14/2017,07/06/2016,0 10/07/2012,07/04/2009 Pneumococcal Conjugate 20-Valent 09/03/2023 Td, Unspecified 03/19/2008,08/12/1994 Tdap 07/06/2016,02/13/2011 Zoster Vaccine Recombinant (Shingrix) 01/22/2024 ,09/17/2023 Family History Medical History Relation Name Comments Allergies Mother Ana Virgen Migraines Mother Ana Virgen Rashes / Skin problems Mother Ana Virgen Allergies Sister 1 Ariella CamachoThornton Asthma Sister 1 Ariella Virgen Migraines Sister 1 Ariella Virgen Allergies Sister 2 Shania Beck Migraines Sister [...] 05/04/2025 07/20/2024, , 07/16/2022, Additional history exists COVID-19 Vaccine (7 - 2024-2 6 season) 2025 07/31/2024, 09/03/2023, 01/16/2022, Additional history exists DTaP/Tdap/Td Vaccines (3 - T d or Tdap) 07/06/2026 07/06/2016, 02/13/2011, 03/19/2008, Additional history exists Pneumococcal Vaccines 50+ Completed 09/03/2023 Zoster (Shingles) Vaccine Completed 01/22/2024, Insurance [facility] Advance Directives * Full Code (Latest Code Status on File) Date Activated Date Inactivated Comments 01/17/2025 6:24 AM Care Teams International Coordinator Relationship Specialty Start Date End Date Annamarie Feliciano MD [address] [place] [address] PCP - General Internal Medicine 11/28/24
--- OUTSIDE RECORDS SUMMARY | 2025-09-14 19:08 | XMS_ITS | Clinical Summary ---
Author Organization [facility] Address [address] [facility] [place], [place] [address] Phone Care Team Providers Care Insecticide Supervisor Name Role Phone Shaquille Alexander MD Primary Care Provider [phone] Surgical History Surgery Date Site/Laterality Comments MULTIPLE [...] on file Sexual Orientation Not on file Plan of Treatment Health Maintenance Due Date [...] Health Screening 04/11/2025 COVID-19 Vaccine (1 - 2024-2 6 season) 2025 Influenza Vaccine (#1) 2025 3, [...] patient's age to complete this topic Insurance Care Teams Insecticide Supervisor Relationship Specialty Start Date End Date Shaquille Alexander MD [address] [place] [address] PCP - General Internal Medicine 04/02/25
--- OUTSIDE RECORDS SUMMARY | 2025-09-14 19:08 | XMS_ITS | Patient Health Record ---
Author Organization [facility] [address] Address [address] [place] [address] Care Team Providers Care Canoe Builder Name Role Phone Dr Enoc Primary Care Provider CAMILO Navarrete Unavailable [phone] Allergies Allergen (clinical drug ingredient) Drug/Non Drug Allergy documented on EMR Reaction Allergy Type Onset Date Status ciprofloxacin Ciprofloxacin rash Drug Allergy Active Latex Latex rash Allergy Active Penicillin rash Drug Allergy Active Reason For Referral No Information Medications Medication SIG (Take, Route, Frequency, Duration) Notes Start Date End Date Status traZODone HCl 150 MG Tablet TAKE 1 TABLE T BY MOUTH EVERYDAY AT BEDTIME Oral; Duration: 90 Days Active Omeprazole 40 MG Capsule Delayed Release Oral; Duration: 90 Days Active hydroCHLOROthiazide 25 MG Tablet Oral; Duration: 90 Days Active Mounjaro 2.5 MG/0.5ML Soluti on Auto-injector Inject 2.5mg Subcutaneous once weekly; Duration: 28 days 07/25/2025 Active Metoprolol Succinate ER 25 M G Tablet Extended Release 24 Hour Oral; Duration: 90 Days Active Emgality 120 MG/ML Solution Auto-injector Subcutaneous; Duration: 90 Days Active Lisinopril 10 MG Tablet Oral; Duration: 90 Days Active Sertraline HCl 100 MG Tablet TAKE 2 TABL ETS BY MOUTH EVERY DAY Oral; Duration: 90 Days Active Fluticasone Propionate 50 MCG/ACT Suspension SPRAY 2 SPRAYS INTO EACH NOSTRIL EVERY DAY Nasal; Duration: 90 Days Active Ferrous Gluconate 324 (38 Fe ) MG Tablet TAKE 1 TABLET BY MOUTH EVERY DAY Oral; Duration: 30 Days Active Szwagvtqmg-UZOZ-Cwykraae 50-325-40 MG Tablet TAKE 1 TABLET BY MOUTH EVERY 4 HOURS NEEDED FOR PAIN Oral; Duration: 3 Days Active buPROPion HCl ER (XL) 150 MG Tablet Extended Release 24 Hour TAKE 1 TABLET BY MOUTH EVERY DAY Oral; Duration: 30 Days Active Mounjaro 2.5 MG/0.5ML Soluti on Auto-injector Inject 2.5mg Subcutaneous once weekly; Duration: 30 days 07/03/2025 Active Problems Problem Type SNOMED Code ICD Code Onset Dates Problem Status W/U Status Risk Notes Problem Essential hypertensi on (86511325) Essential hypertension (I10) Active confirmed Problem Morbid obesity (143132895) Morbid obesity (E66.01) Active confirmed Problem Body mass index 40+ - morbidly obese (560971499) BMI 40.0-44.9, adult (Z68.41) Active confirmed Problem Type II diabetes mellitus without complication (376936405) Type 2 diabetes mellitus without complication, without long-term current use of insulin (E11.9) Active confirmed Problem hypercholesterolemia (disorder) (30341158) Hypercholesteremia (E78.00) Active confirmed Problem Mixed anxiety and depressive disorder (296966756) Depression with anxiety (F41.8) Active confirmed Problem Hemoglobin A1c above reference range (417673595) Elevated hemoglobin A1c (R73.09) Active confirmed Problem Obstructive sleep apnea syndrome (76838928) BLANCA on CPAP (G47.33) Active confirmed Problem Episodic migraine (942593939408037) Episodic migraine (G43.909) Active confirmed Vital Signs Heart Rate 73 /min 07/25/2025 Oximetry 97 % 07/25/2025 Blood pressure diastolic 84 mm Hg 07/25/2025 Height 64 in 07/25/2025 Blood pressure systolic 122 mm Hg 07/25/2025 Weight 237 lbs 07/25/2025 BMI 40.68 kg/m2 07/25/2025 Encounters Encounter Location Date Provider Diagnosis [facility] [address] [address] 07/03/2025 CAMILO BRANNON Morbid obesity E66.0 1 ; BMI 40.0-44.9, adult Z68.41 ; Elevated hemoglobin A1c R73.09 ; Essential hypertension I10 ; Hypercholesteremia E78.00 ; BLANCA on CPAP G47.33 ; Episodic migraine G43.909 ; History of gastroesophageal reflux (GERD) Z87.19 ; Depression with anxiety F41.8 and Nutritional counseling Z71.3 [facility] [address] [facility] [address] [place] [address] 07/25/2025 CAMILO BRANNON Morbid obesity E66.0 1 ; BMI 40.0-44.9, adult Z68.41 ; Type 2 diabetes mellitus without complication, without long-term current use of insulin E11.9 ; Essential hypertension I10 ; Hypercholesteremia E78.00 ; BLANCA on CPAP G47.33 and Nutritional counseling Z71.3 [facility] [address] [facility] [address] [place] [address] 07/03/2025 CAMILO BRANNON Elevated hemoglobin A1c R73.09 and BLANCA on CPAP G47.33 Assessments Encounter Date Diagnosis (ICD Code) Assessment Notes Treatment Notes Treatment Clinical Notes Section Notes 07/03/2025 Morbid obesity (ICD-10 - E66.01) Hope is a 54-year-old female with a [...] reviewed. Dictation completed with the use of Mailgun voice recognition software, prone to medical misidentifications [...] reviewed. Dictation completed with the use of Mailgun voice recognition software, prone to medical misidentifications and grammatical errors. All errors are unintentional. Although the practitioner does try to identify and correct errors, some may be present. Please do not hesitate to contact the practitioner for clarification. Total time was 60 minutes spent with greater than 50% on coordination of care and patient education. 07/25/2025 Morbid obesity (ICD-10 - E66.01) Ruth is a 54-year-old female with a PMH of HTN, HLD, A1c 6.4%, BLANCA requiring CPAP, migraines, GERD, anxiety/depression that presents for weight management follow up. Reviewed [facility] holistic and medical approach to weight loss with emphasis on lifestyle modification. 07/25/2025: Weight: 237, BMI: 40.6. (-8lbs) SECA reviewed, reveals over 4 pounds of fat loss and minimal loss of muscle mass. Patient congratulated on progress. She is encouraged to continue making health-conscious diet choices, regarding low meals, and prioritizing protein intake. Discussed importance of adequate hydration and continued efforts to increase current level of physical activity. Plan to continue Mounjaro 2.5 mg SC weekly and follow-up in 1 month. 07/03/2025: Weight: 245.5, BMI: 42. All questions answered to the patients satisfaction. Patient demonstrates understanding of diagnosis and treatments discussed. Follow-up at next scheduled appointment, sooner should any questions/concerns arise. Case discussed with collaborating physician Lisa Epstein who has reviewed the assessment/plan. Chart, medications, labs, and vital signs reviewed. Dictation completed with the use of Mailgun voice recognition software, prone to medical misidentifications and grammatical errors. All errors are unintentional. Although the practitioner does try to identify and correct errors, some may be present. Please do not hesitate to contact the practitioner for clarification. Total time was 30 minutes spent with greater than 50% on coordination of care and patient education. 07/25/2025 BMI 40.0-44.9, adult (ICD-10 - Z68.41) Ruth is a 54-year-old female with a PMH of HTN, HLD, A1c 6.4%, BLANCA requiring CPAP, migraines, GERD, anxiety/depression that presents for weight management follow up. Reviewed [facility] holistic and medical approach to weight loss with emphasis on lifestyle modification. 07/25/2025: Weight: 237, BMI: 40.6. (-8lbs) SECA reviewed, reveals over 4 pounds of fat loss and minimal loss of muscle mass. Patient congratulated on progress. She is encouraged to continue making health-conscious diet choices, regarding low meals, and prioritizing protein intake. Discussed importance of adequate hydration and continued efforts to increase current level of physical activity. Plan to continue Mounjaro 2.5 mg SC weekly and follow-up in 1 month. 07/03/2025: Weight: 245.5, BMI: 42. All questions answered to the patients satisfaction. Patient demonstrates understanding of diagnosis and treatments discussed. Follow-up at next scheduled appointment, sooner should any questions/concerns arise. Case discussed with collaborating physician Lisa Epstein who has reviewed the assessment/plan. Chart, medications, labs, and vital signs reviewed. Dictation completed with the use of Mailgun voice recognition software, prone to medical misidentifications and grammatical errors. All errors are unintentional. Although the practitioner does try to identify and correct errors, some may be present. Please do not hesitate to contact the practitioner for clarification. Total time was 30 minutes spent with greater than 50% on coordination of care and patient education. 07/25/2025 Type 2 diabetes mellitus without complication, without long-term current use of insulin (ICD-10 - E11.9) Hope is a 54-year-old female with a PMH of HTN, HLD, A1c 6.4%, BLANCA requiring CPAP, migraines, GERD, anxiety/depression that presents for weight management follow up. Reviewed [facility] holistic and medical approach to weight loss with emphasis on lifestyle modification. 07/25/2025: Weight: 237, BMI: 40.6. (-8lbs) SECA reviewed, reveals over 4 pounds of fat loss and minimal loss of muscle mass. Patient congratulated on progress. She is encouraged to continue making health-conscious diet choices, regarding low meals, and prioritizing protein intake. Discussed importance of adequate hydration and continued efforts to increase current level of physical activity. Plan to continue Mounjaro 2.5 mg SC weekly and follow-up in 1 month. 07/03/2025: Weight: 245.5, BMI: 42. All questions answered to the patients satisfaction. Patient demonstrates understanding of diagnosis and treatments discussed. Follow-up at next scheduled appointment, sooner should any questions/concerns arise. Case discussed with collaborating physician Lisa Epstein who has reviewed the assessment/plan. Chart, medications, labs, and vital signs reviewed. Dictation completed with the use of Mailgun voice recognition software, prone to medical misidentifications and grammatical errors. All errors are unintentional. Although the practitioner does try to identify and correct errors, some may be present. Please do not hesitate to contact the practitioner for clarification. Total time was 30 minutes spent with greater than 50% on coordination of care and patient education. 07/03/2025 Elevated hemoglobin A1c (ICD-10 - R73.09) Electronic Prior Authorization was requested for Mounjaro 2.5 MG/0.5ML Solution Auto-injector. Provider can order medication once approval received. 07/03/2025 Elevated hemoglobin A1c (ICD-10 - R73.09) [...] reviewed. Dictation completed with the use of Mailgun voice recognition software, prone to medical misidentifications [...] Provider can order medication once approval received. 07/25/2025 Essential hypertension (ICD-10 - I10) Ruth is a 54-year-old female with a PMH of HTN, HLD, A1c 6.4%, BLANCA requiring CPAP, migraines, GERD, anxiety/depression that presents for weight management follow up. Reviewed [facility] holistic and medical approach to weight loss with emphasis on lifestyle modification. 07/25/2025: Weight: 237, BMI: 40.6. (-8lbs) SECA reviewed, reveals over 4 pounds of fat loss and minimal loss of muscle mass. Patient congratulated on progress. She is encouraged to continue making health-conscious diet choices, regarding low meals, and prioritizing protein intake. Discussed importance of adequate hydration and continued efforts to increase current level of physical activity. Plan to continue Mounjaro 2.5 mg SC weekly and follow-up in 1 month. 07/03/2025: Weight: 245.5, BMI: 42. All questions answered to the patients satisfaction. Patient demonstrates understanding of diagnosis and treatments discussed. Follow-up at next scheduled appointment, sooner should any questions/concerns arise. Case discussed with collaborating physician Lisa Epstein who has reviewed the assessment/plan. Chart, medications, labs, and vital signs reviewed. Dictation completed with the use of Mailgun voice recognition software, prone to medical misidentifications and grammatical errors. All errors are unintentional. Although the practitioner does try to identify and correct errors, some may be present. Please do not hesitate to contact the practitioner for clarification. Total time was 30 minutes spent with greater than 50% on coordination of care and patient education. 07/03/2025 Essential hypertension (ICD-10 - I10) Hope is a 54-year-old female with a [...] reviewed. Dictation completed with the use of Mailgun voice recognition software, prone to medical misidentifications and grammatical errors. All errors are unintentional. Although the practitioner does try to identify and correct errors, some may be present. Please do not hesitate to contact the practitioner for clarification. Total time was 60 minutes spent with greater than 50% on coordination of care and patient education. 07/25/2025 Hypercholesteremia (ICD-10 - E78.00) Ruth is a 54-year-old female with a PMH of HTN, HLD, A1c 6.4%, BLANCA requiring CPAP, migraines, GERD, anxiety/depression that presents for weight management follow up. Reviewed [facility] holistic and medical approach to weight loss with emphasis on lifestyle modification. 07/25/2025: Weight: 237, BMI: 40.6. (-8lbs) SECA reviewed, reveals over 4 pounds of fat loss and minimal loss of muscle mass. Patient congratulated on progress. She is encouraged to continue making health-conscious diet choices, regarding low meals, and prioritizing protein intake. Discussed importance of adequate hydration and continued efforts to increase current level of physical activity. Plan to continue Mounjaro 2.5 mg SC weekly and follow-up in 1 month. 07/03/2025: Weight: 245.5, BMI: 42. All questions answered to the patients satisfaction. Patient demonstrates understanding of diagnosis and treatments discussed. Follow-up at next scheduled appointment, sooner should any questions/concerns arise. Case discussed with collaborating physician Lisa Epstein who has reviewed the assessment/plan. Chart, medications, labs, and vital signs reviewed. Dictation completed with the use of Mailgun voice recognition software, prone to medical misidentifications and grammatical errors. All errors are unintentional. Although the practitioner does try to identify and correct errors, some may be present. Please do not hesitate to contact the practitioner for clarification. Total time was 30 minutes spent with greater than 50% on [...] reviewed. Dictation completed with the use of Mailgun voice recognition software, prone to medical misidentifications and grammatical errors. All errors are unintentional. Although the practitioner does try to identify and correct errors, some may be present. Please do not hesitate to contact the practitioner for clarification. Total time was 60 minutes spent with greater than 50% on coordination of care and patient education. 07/03/2025 BLANCA on CPAP (ICD-10 - G47.33) Hope is a 54-year-old female with a [...] reviewed. Dictation completed with the use of Dragon voice recognition software, prone to medical misidentifications and grammatical errors. All errors are unintentional. Although the practitioner does try to identify and correct errors, some may be present. Please do not hesitate to contact the practitioner for clarification. Total time was 60 minutes spent with greater than 50% on coordination of care and patient education. 07/25/2025 BLANCA on CPAP (ICD-10 - G47.33) Ruth is a 54-year-old female with a PMH of HTN, HLD, A1c 6.4%, BLANCA requiring CPAP, migraines, GERD, anxiety/depression that presents for weight management follow up. Reviewed [facility] holistic and medical approach to weight loss with emphasis on lifestyle modification. 07/25/2025: Weight: 237, BMI: 40.6. (-8lbs) SECA reviewed, reveals over 4 pounds of fat loss and minimal loss of muscle mass. Patient congratulated on progress. She is encouraged to continue making health-conscious diet choices, regarding low meals, and prioritizing protein intake. Discussed importance of adequate hydration and continued efforts to increase current level of physical activity. Plan to continue Mounjaro 2.5 mg SC weekly and follow-up in 1 month. 07/03/2025: Weight: 245.5, BMI: 42. All questions answered to the patients satisfaction. Patient demonstrates understanding of diagnosis and treatments discussed. Follow-up at next scheduled appointment, sooner should any questions/concerns arise. Case discussed with collaborating physician Lisa Epstein who has reviewed the assessment/plan. Chart, medications, labs, and vital signs reviewed. Dictation completed with the use of Mailgun voice recognition software, prone to medical misidentifications and grammatical errors. All errors are unintentional. Although the practitioner does try to identify and correct errors, some may be present. Please do not hesitate to contact the practitioner for clarification. Total time was 30 minutes spent with greater than 50% on coordination of care and patient education. 07/25/2025 Nutritional counseling (ICD-10 - Z71.3) Ruth is a 54-year-old female with a PMH of HTN, HLD, A1c 6.4%, BLANCA requiring CPAP, migraines, GERD, anxiety/depression that presents for weight management follow up. Reviewed [facility] holistic and medical approach to weight loss with emphasis on lifestyle modification. 07/25/2025: Weight: 237, BMI: 40.6. (-8lbs) SECA reviewed, reveals over 4 pounds of fat loss and minimal loss of muscle mass. Patient congratulated on progress. She is encouraged to continue making health-conscious diet choices, regarding low meals, and prioritizing protein intake. Discussed importance of adequate hydration and continued efforts to increase current level of physical activity. Plan to continue Mounjaro 2.5 mg SC weekly and follow-up in 1 month. 07/03/2025: Weight: 245.5, BMI: 42. All questions answered to the patients satisfaction. Patient demonstrates understanding of diagnosis and treatments discussed. Follow-up at next scheduled appointment, sooner should any questions/concerns arise. Case discussed with collaborating physician Lisa Epstein who has reviewed the assessment/plan. Chart, medications, labs, and vital signs reviewed. Dictation completed with the use of Mailgun voice recognition software, prone to medical misidentifications and grammatical errors. All errors are unintentional. Although the practitioner does try to identify and correct errors, some may be present. Please do not hesitate to contact the practitioner for clarification. Total time was 30 minutes spent with greater than 50% on [...] reviewed. Dictation completed with the use of Mailgun voice recognition software, prone to medical misidentifications [...] reviewed. Dictation completed with the use of Mailgun voice recognition software, prone to medical misidentifications [...] reviewed. Dictation completed with the use of Mailgun voice recognition software, prone to medical misidentifications and grammatical errors. All errors are unintentional. Although the practitioner does try to identify and correct errors, some may be present. Please do not hesitate to contact the practitioner for clarification. Total time was 60 minutes spent with greater than 50% on coordination of care and patient education. 07/03/2025 Nutritional counseling (ICD-10 - Z71.3) Ruth is a 54-year-old female with a [...] reviewed. Dictation completed with the use of Mailgun voice recognition software, prone to medical misidentifications [...] Next Appt Details Provider Name:CAMILO DENZEL Williamson, 09/25/2025 02:45:00 PM, [address] [place] [address], [facility] [address], [place], [address], Insurance Providers Payer Name Payer Address Payer Phone Subscriber Number Group Number Insured Name Patient Relationship to Insured Coverage Start Date Coverage End Date [facility] [address] [place] [address] [id number] Ruth Driver Self - patient is the insured Medical (General) History Surgical History Surgery Date(Month/Year) Total hysterectomy 2020 Gastric sleeve 08/03/2023 [email or web address] 2023 Hospitalization History Reason Date(Month/Year) DVT/PE 2020
--- OUTSIDE RECORDS SUMMARY | 2025-09-14 19:08 | XMS_ITS | Continuity of Care Document ---
Author Organization [place] [facility] Joycelyn Hicks AONE [place] Address [address] [place] [address] Care Team Providers Care Environmental Health Safety Engineer Name Role Phone NURIS DORANTES Primary Care Provider [phone] NURIS DORANTES Referring Provider [phone] Assessment Encounter Date Assessment Date Assessment LastModified by Organization Details LastModified Time 08/27/2025 08/27/2025 I reviewed my findings with [...] physical examination, test/diagnostic imaging, and treatment plan. [email or web address] Not available 08/27/2025 16:04:44 Plan of Treatment Reminders Order Date Submit Date Provider Last Modified By Organization Details Last Modified Time Details Appointments FOLLOW UP 2025 10:15A M Giancarlo Morin PA-C Not available Not available Not available Lab None recorded. Referral None recorded. Procedures None recorded. Surgeries None recorded. Imaging XR, knee, 3 view 2024 025 [email or web address] [facility], [address], [address], [place], [address], 09/03/2025 08:15:56 Medication Orders lidocaine (PF) 10 mg/mL (1 %) injection solution 2024 025 [email or web address] [id number], [address] [place], [address], 09/03/2025 08:15:56 [email or web address] lone acetonide 40 mg/mL suspensio n for injection 2024 025 [email or web address] [id number], [address] [place] [address], [address], 09/03/2025 08:15:56 lidocaine (PF) 10 mg/mL (1 %) injection solution 2024 025 [email or web address] [id number], [address] [place], [address], 09/03/2025 08:15:56 triamcino lone acetonide 40 mg/mL suspensio n for injection 2024 025 [email or web address] [facility], [address] [place] [address], [address], 09/03/2025 08:15:56 Patient TargetsNo targets recorded. Patient Instructions Encounter Date Encounter Id Patient Instructions Last Modified By Organization Details Last Modified Time 08/27/2025 [id number] halle Raymond al and sunrise views of the right knee obtained 08/27/2025 reveal mild joint space narrowing at both medial and lateral compartments. Moderate patellofemoral joint space narrowing with periarticular osteophyte formation. [email or web address] Not available 08/27/2025 15:59:38 Reason for Referral None Reported. Problems Name Problem SNOMED Code Status Onset Date Resolution Date Notes Provider Name and Address Organization Details Recorded Time Left lateral elbow tendinopa thy 95051919306 9100 Active 2019 Lateral epicondyl itis of left elbow Not Available [facility] 00:41:23 Osteoarth ritis of left knee joint 63411816973 9109 Active 2024 GIANCARLO MORIN PA-C [address], [place], [address] , [place] [facility], [facility] 5 08:41:23 Lipoma of left lower limb 75634726274 25197 Active [address], [place], [address] , [place] [facility], [facility] 5 08:41:39 Osteoarth ritis of right knee joint 65078898588 9100 Active [address], [place], [address] , [place] [facility], P 5 16:22:58 Problem Notes None recorded. Procedures Surgical History Date Name Laterality Status Provider Name and Address Organization Details Recorded Time 08/27/20 25 BLW Knee Asp/Inj w/US completed [address], [place], [address], [place] [facility], P 08/27/2025 16:21:55 05/23/20 25 BLW Knee Asp/Inj w/US completed [address], [place], [address], [place] [facility], [facility] 05/23/2025 15:07:42 hysterectomy completed [facility] [place] [facility], [facility] 04/27/2025 11:26:08 Bariatric Surgery completed Brooke Schulte [place] [facility], P 04/27/2025 11:26:30 Gallbladder Surgery completed Brooke Schulte [place] [facility], P 04/27/2025 11:26:47 Imaging Results None recorded. Procedure Notes None recorded. Medical Equipment None Reported. Allergies Allergen ID Allergen Name Allergen Category Reaction Reaction Severity Criticality Documentation Date Start Date Code Code System Note Provider Name and Address Organization Details Recorded Time 358031 metformin medicatio n Not available Not available Not available 08/27/2025 6809 RxNorm Not Available josh - External Data Service - prod 05:02:45 94662 Product containin g penicilli n (product) medicatio n Not available Not available Not available 04/27/2025 50162 8001 SNOMED Brooke hinojosa, [place] [facility], P 5 11:10:01 71507 latex environme nt,medica tion Not available Not available Not available 04/27/20251996 62475 91 RxNorm Brooke hinojosa, [place] [facility], P 5 11:10:01 72280 Cipro medicatio n Not available Not available Not available 04/27/2025 93074 3 RxNorm Brooke Schulte null, [place] [facility], P 5 11:10:14 64760 hydrogena asa vegetable oil food,medi cation Not available Not available Not available 06/26/20252019 42998 25 RxNorm Not Available [facility] 5 01:12:18 19743 ciproflox acin medicatio n Not available Not available Not available 06/26/20252019 2551 RxNorm Not Available [facility] 5 01:12:18 Medications Name Sig Start Date [...] Updated DateTime 08/27/2025 165.1 cm 39.8 kg/m2 406968.[address] [place] [facility], P 08/27/2025 15:35:37 Social History None recorded. Functional Status Question Answer Note LastModified by Organizat ion Details LastModified Time Do you use any illicit or recreational drugs? No [email or web address] Information not available 04/27/2025 Do you or have you ever used any other forms of tobacco or nicotine? No [email or web address] Information not available 04/27/2025 What is your level of alcohol consumption? None [email or web address] Information not available 04/27/2025 Are you currently employed? Yes [facility] COORDINATOR OF MEDICAL RECORDS/PATIENT PORTAL [email or web address] Information not available 04/27/2025 Mental Status None recorded. Family History Relationship Description Onset Age of this Age Resolved Age Notes LastModified by Organization Details LastModified Time Mother Hypertensive disorder [email or web address] Not available 2024 11:27:11 Mother Diabetes mellitus [email or web address] Not available 2024 11:27:22 Father Hypertensive disorder [email or web address] Not available 2024 11:27:11 Sister Hypertensive disorder [email or web address] Not available 2024 11:27:11 Sister Arthritis [email or web address] Not availabl e 04/27/2025 11:27:37 Notes:RHEUMATOLOGIC DISEASE- [...] Anemia N Brain Injury N Heart Attack (NE) N Osteopenia N Diabetes N Bleeding Disorder [...] ICD10 Code Diagnosis IMO Codes Diagnosis Note [id number] GIANCARLO MORIN PA-C [employer] [place] [address] 08/27/2025 15:12:47 08/27/2025 16:24:13 Osteoarthritis of left knee joint 9000270373 37034 M17.12 7075154 Pain of ri ght knee region 4531647175 00878 M25.561 90664952 Osteoarthr itis of right knee joint 1197480564 17823 M17.11 1370295 Health Concerns Section Related Observation LastModified by Organization Detai ls LastModified Time None Recorded Concern Status LastModified by Organization Details LastModified Time None Recorded Payers Encounter Date Sequence Insurance Name Policy Number Policy Lizarraga Covered Member ID Lizarraga Member ID Guarantor Name 08/27/2025 1 [facility] [id number] Ruth Driver [id number] Ruth Driver Notes Date Note Type Note Provider Name and Address Organization Details Recorded Time 08/27/2025 text/html Ruth returns to the office [...] GIANCARLO MORIN PA-C [address], [place], [address], [place] [facility], [facility] 08/27/2025 16:23:15 OBGyn Episode No OBEpisode recorded.
--- OUTSIDE RECORDS SUMMARY | 2025-09-14 19:09 | XMS_ITS | Continuity of Care Document ---
Author Organization [facility] Address [address] [place] [address] Insurance Providers Payer Plan Claims Address Claims Phone Policy Number Group Number Relation Employer Guarantor Name Guarantor Guarantor Address Guarantor Phone [facility] [address], [address], [place] [address] tel:[phone] [id number] [facility] [place] [address] tel:[phone] [phone] [facility] [address], [address], [place] [id number] Self Ruth Driver [address] [place] [id number] Problems Condition ICD9 code ICD10 code SNOMED code Start Date End Date S tatus Encounter for screening for other metabolic disorders Z13.228 Results No Results Allergies, adverse reactions, alerts No known allergies and adverse reactions Medications No administered medications reported Vital Signs No vital signs reported Social History No smoking Hx information available
--- OUTSIDE RECORDS SUMMARY | 2025-09-14 19:09 | XMS_ITS | Encounter Summary ---
Author Organization [facility] Address [address] [place] [address] Care Team Providers Care Field Artillery Fire Control Man Name Role Phone Annamarie Feliciano MD Primary Care Provider +1- [phone] Encounter Details Date Type Department Care Team (Late st Contact Info) Description 01/15/2025 Scanned Document [facility] [place] [address] [place] [address] Kris Moore MD [address] [place] [address] Social History Tobacco Use Types Packs/Day [...] on filedocumented in this encounter Care Teams Field Artillery Fire Control Man Relationship Specialty Start Date End Date Annamarie Feliciano MD [address] [place] [address] PCP - General Internal Medicine 11/28/24 documented as of this encounter
--- OUTSIDE RECORDS SUMMARY | 2025-09-14 19:09 | XMS_ITS | Encounter Summary ---
Author Organization [facility] Address [address] [place] [address] Care Team Providers Care Size Stamper Name Role Phone Annamarie Feliciano MD Primary Care Provider +1- [phone] Encounter Details Date Type Department Care Team (Late st Contact Info) Description 01/05/2025 Scanned Document [facility] [place] [address] [place] [address] [place] [address] Kris Moore MD [address] [place] [address] Social History Tobacco Use Types Packs/Day [...] on filedocumented in this encounter Care Teams Size Stamper Relationship Specialty Start Date End Date Annamarie Feliciano MD [address] [place] [address] PCP - General Internal Medicine 11/28/24 documented as of this encounter
--- OUTSIDE RECORDS SUMMARY | 2025-09-14 19:09 | XMS_ITS | Encounter Summary ---
Author Organization [facility] Address [address] [place] [address] Care Team Providers Care Medical Insurance Verifier Name Role Phone Annamarie Feliciano MD Primary Care Provider +1- [phone] Encounter Details Date Type Department Care Team (Late st Contact Info) Description 01/09/2025 Scanned Document [facility] [place] [address] [place] [address] [place] [address] Kris Moore MD [address] [place] [address] Social History Tobacco Use Types Packs/Day [...] on filedocumented in this encounter Care Teams Medical Insurance Verifier Relationship Specialty Start Date End Date Annamarie Feliciano MD [address] [place] [address] PCP - General Internal Medicine 11/28/24 documented as of this encounter
--- OUTSIDE RECORDS SUMMARY | 2025-09-14 19:09 | XMS_ITS | Continuity of Care Document ---
Author Organization [facility] Joycelyn Hicks AONE [place] Address [address] [place] [address] Care Team Providers Care System Archive Analyst Name Role Phone NURIS DORANTES Primary Care Provider NURIS DORANTES Referring Provider [phone] Assessment Encounter Date Assessment Date Assessment LastModified by Organization Details LastModified Time 06/28/2025 06/28/2025 Improvement in knee pain after cortisone injection in the setting of osteoarthritis . She will continue working on her weight loss and low impact exercise. Judicious use of NSAIDs, resting and icing as needed. She will call if any worsening symptoms The patient was seen and evaluated by Giancarlo Morin PA-C in indirect conjunction with Vijay Liao MD. He agrees with history, physical examination, test/diagnosti c imaging, and treatment plan. [email or web address] Not available 06/28/2025 16:28:08 Plan of Treatment Reminders Order Date Submit Date Provider Last Modified By Organization Details Last Modified Time Details Appointments FOLLOW UP 2025 10:15A M Giancarlo Morin PA-C Not available Not available Not available Lab None recorded . Referral None recorded . Procedures None recorded . Surgeries None recorded . Imaging None recorded . Medication Orders None recorded . Patient TargetsNo targets recorded. Patient InstructionsNo instructions recorded. Reason for Referral None Reported. Problems Name Problem SNOMED Code Status Onset Date Resolution Date Notes Provider Name and Address Organization Details Recorded Time Left lateral elbow tendinopa thy 62999346320 9100 Active 2019 Lateral epicondyl itis of left elbow Not Available [facility] 00:41:23 Osteoarth ritis of left knee joint 50075556158 9109 Active [address], [place], [address] , [place] [facility] 08:41:23 Lipoma of left lower limb 59251197229 06182 Active [address], [place], [place], [address] [place] [address] , [place] [facility], P 08:41:39 Osteoarth ritis of right knee joint 19438128565 9100 Active [address], [place], [place], [address] [place] [address] , [place] [facility], P 16:22:58 Problem Notes None recorded. Procedures Surgical History Date Name Laterality Status Provider Name and Address Organization Details Recorded Time 08/27/20 25 BLW Knee Asp/Inj w/US completed [address], [place], [address], [place] [facility], P 08/27/2025 16:21:55 05/23/20 25 BLW Knee Asp/Inj w/US completed [address]ON[address], [place], [place], [address] [place] [address], [place] [facility], [facility] 05/23/2025 15:07:42 hysterectomy completed Brooke Schulte [place] [facility], P 04/27/2025 11:26:08 Bariatric Surgery completed Brooke Schulte [place] [facility], P 04/27/2025 11:26:30 Gallbladder Surgery completed Brooke Schulte [place] [facility], P 04/27/2025 11:26:47 Imaging Results None recorded. Procedure Notes None recorded. Medical Equipment None Reported. Allergies Allergen ID Allergen Name Allergen Category Reaction Reaction Severity Criticality Documentation Date Start Date Code Code System Note Provider Name and Address Organization Details Recorded Time 974969 metformin medicatio n Not available Not available Not available 08/27/2025 7449 RxNorm Not Available josh - External Data Service - prod 5 05:02:45 79873 Product containin g penicilli n (product) medicatio n Not available Not available Not available 04/27/2025 96375 8001 SNOMED Brooke hinojosa, [place] [facility], P 5 11:10:01 15357 latex environme nt,medica tion Not available Not available Not available 04/27/20251996 28351 91 RxNorm Brooke hinojosa, [place] [facility], P 5 11:10:01 63564 Cipro medicatio n Not available Not available Not available 04/27/2025 11782 3 RxNorm Brooke hinojosa, [place] [facility], P 5 11:10:14 35888 hydrogena asa vegetable oil food,medi cation Not available Not available Not available 06/26/20252019 71938 25 RxNorm Not Available [facility] 5 01:12:18 22595 ciproflox acin medicatio n Not available Not available Not available 06/26/20252019 2551 RxNorm Not Available [facility] 5 01:12:18 Medications Name Sig Start [...] t Available Vitals Date Recorded Body height Provider Name an d Address Organization Details Last Updated DateTime 06/28/2025 165.[facility], 06/28/2025 16:15:34 Social History None recorded. Functional Status Question Answer Note LastModified by Organizat ion Details LastModified Time Do you use any illicit or recreational drugs? No [email or web address] Information not available 04/27/2025 Do you or have you ever used any other forms of tobacco or nicotine? No [email or web address] Information not available 04/27/2025 What is your level of alcohol consumption? None [email or web address] Information not available 04/27/2025 Are you currently employed? Yes [facility] [facility] COORDINATOR OF MEDICAL RECORDS/PATIENT PORTAL Information not available 04/27/2025 Mental Status None recorded. Family History Relationship Description Onset Age of this Age Resolved Age Notes LastModified by Organization Details LastModified Time Mother Hypertensive disorder Not available 2024 11:27:11 Mother Diabetes mellitus [email or web address] Not available 2024 11:27:22 Father Hypertensive disorder [email or web address] Not available 2024 11:27:11 Sister Hypertensive disorder [email or web address] Not available 2024 11:27:11 Sister Arthritis [email or web address] Not availabl e 04/27/2025 11:27:37 Notes:RHEUMATOLOGIC DISEASE- SISTER Medical History Condition Response Coronary Artery Disease N Gout N Hyperthyroidism N MRSA N Blood Transfusion N Emphysema N Hypothyroidism N COPD N Depression Y Pacemaker N Vascular Disease N Gastrointestinal Disease N Anxiety Disorder N Autoimmune disease N Arthritis N Cancer N Stroke N High Cholesterol N Neurologic Disorder N Liver Disease N Organ Transplant N Arrhythmia N Rheumatoid Arthritis N Fibromyalgia N Kidney Disease N Allergies/Hayfever Y Adverse Reaction to Anesthesia N Thyroid Problems N Anemia N Brain Injury N Heart Attack (ND) N Osteopenia N Diabetes N Bleeding Disorder [...] ICD10 Code Diagnosis IMO Codes Diagnosis Note [id number] JONN [address]RIOS [address] [place] [address] 06/28/2025 16:07:23 06/28/2025 16:21:17 Osteoarthritis of left knee joint 2104285689 32124 M17.12 [id number] Health Concerns Section Related Observation LastModified by Organization Detai ls LastModified Time None Recorded Concern Status LastModified by Organization Details LastModified Time None Recorded Payers Encounter Date Sequence Insurance Name Policy Number Policy Lizarraga Covered Member ID Lizarraga Member ID Guarantor Name 06/28/2025 1 [facility] [id number] Ruth Driver [id number] Ruth Driver Notes Date Note Type Note Provider Name and Address Organization Details Recorded Time 06/28/2025 text/html Ruth returns to the office [...] GIANCARLO MORIN PA-C [address], [place], [address], [place] [facility], 06/28/2025 16:28:22 OBGyn Episode No OBEpisode recorded.
--- OUTSIDE RECORDS SUMMARY | 2025-09-14 19:09 | XMS_ITS | Encounter Summary ---
Author Organization [facility] Address [address] [place] [address] Care Team Providers Care Dehydrator Tender Name Role Phone Annamarie Feliciano MD Primary Care Provider +1- [phone] Encounter Details Date Type Department Care Team (Late st Contact Info) Description 12/21/2024 CC Surg Order [facility] [place] [address] [place] [address] [place] [address] Kris Moore MD [address] [place] [address] Social History Tobacco Use Types Packs/Day [...] on filedocumented in this encounter Care Teams Dehydrator Tender Relationship Specialty Start Date End Date Annamarie Feliciano MD [address] [place] [address] PCP - General Internal Medicine 11/28/24 documented as of this encounter
== END 2025-09-14 14:28 | disposition home or self-care (01) ==
LOC: HO.HMCHD 13:40
PROVIDERS: PCP Internal Medicine; Visit Provider Internal Medicine
DX: K21.9 Gastro-esophageal reflux disease without esophagitis (principal); R10.13 Epigastric pain; R73.01 Impaired fasting glucose

== ENCOUNTER → 2025-09-14 13:39 | Outpatient (BNVA) | payer OTHER, SELFPAY | PROVIDERS: PCP Internal Medicine; Visit Provider Internal Medicine | DX: Z13.31 Encounter for screening for depression (principal) | CPT/HCPCS: 96127 ==